=== PATIENT | male | born 1945 | race Caucasian/White ===

== ENCOUNTER 2016-06-24 10:24 | Emergency (ER) | payer MEDICARE ==
[2016-06-24] MEDS ORDERED: ACETAMINOPHEN TAB 650MG DOSE (2X325MG) As Ordered ONE (11:12)
[2016-06-24 11:18] LABS: BASO # 0.2 K/mm3 (0.0-0.2); EOS % 0.2 % (0.0-3.0); LARGE UNSTAINED CELL # 0.2 K/mm3 (0.0-0.4); LARGE UNSTAINED CELL % 1.3 % (0.0-4.0); LYMPH # 0.7 K/mm3 (1.5-4.5); LYMPH % 4.4 % (24.0-44.0); MEAN CORPUSCULAR HEMOGLOBIN 30.4 pg (27.0-33.0); MEAN CORPUSCULAR VOLUME 92.2 fl (80.0-96.0); MONO # 0.7 K/mm3 (0.0-0.8); NEUTROPHILS # 10.5 K/mm3 (1.8-7.7); PLATELET COUNT, AUTOMATED 189 k/mm3 (150-450); RED CELL DISTRIBUTION WIDTH 14.3 % (11.5-14.5); WHITE BLOOD COUNT 12.2 K/mm3 (4.0-10.0)
[2016-06-24 11:26] LABS: ALBUMIN 3.6 GM/DL (3.2-5.2); ALBUMIN/GLOBULIN RATIO 0.86 (1.00-1.93); ALKALINE PHOSPHATASE 85 U/L (45-117); ALT/SGPT 23 U/L (12-78); ANION GAP 8 MEQ/L (8-16); AST/SGOT 16 U/L (15-37); BILIRUBIN,DIRECT 0.1 MG/DL (0.0-0.2); BILIRUBIN,TOTAL 0.5 MG/DL (0.2-1.0); BLOOD UREA NITROGEN 16 MG/DL (7-18); CALCIUM LEVEL 8.4 MG/DL (8.8-10.2); CARBON DIOXIDE LEVEL 26 MEQ/L (21-32); CHLORIDE LEVEL 104 MEQ/L (98-107); CREATININE FOR GFR 1.24 MG/DL (0.70-1.30); GLOMERULAR FILTRATION RATE > 60.0 (>42); GLUCOSE, FASTING 119 MG/DL (83-110); SODIUM LEVEL 138 MEQ/L (136-145); TOTAL PROTEIN 7.8 GM/DL (6.4-8.2)
[2016-06-24 12:18] LABS: CALCIUM OXALATE CRYSTALS SMALL
--- NOTE | 2016-06-24 12:28 | REP ---
CHEST X-RAY: Two views. HISTORY: Fever and cough. FINDINGS: The lungs are symmetrically aerated and free of infiltrate. Pleural angles are sharp. Heart is not enlarged. The aorta is rather tortuous. There are degenerative changes in the thoracic spine. Pulmonary vasculature is not increased. IMPRESSION: No active disease. Signed by Willian Linares MD 06/24/2016 12:34 P
[2016-06-24] MEDS ORDERED: MORPHINE 4 MG/ML 1ML SYRINGE As Ordered ONE (13:37)
[2016-06-24] MEDS ORDERED: OSELTAMIVIR PHOSPHATE 75 MG CAP (TAMIFLU) As Ordered ONE (14:09)
--- NOTE | 2016-06-24 14:21 | EDDOCDS ---
Physician Documentation [facility] Name: Angel Jay Age: 71 yrs Sex: Male : 1945 Arrival Date: 06/24/2016 Time: 10:24 Bed 11 Private MD: Sarai Hernández N. Disposition: 06/24 13:33 I have independently interviewed and examined the patient, and I agree with the br1 investigation, diagnosis and treatment plan as documented by the Resident. Disposition: 06/24/16 13:24 Discharged to Home/Self Care. Impression: Influenza due to identified novel influenza A virus, Hematuria. - Condition is Stable. - Discharge Instructions: Influenza, Adult, [id number]. - Prescriptions for Tamiflu 75 mg Oral Capsule - take 1 capsule by ORAL route every 12 hours for 5 days; 10 capsule. - Medication Reconciliation, Local Pharmacy Hours form. - Follow up: Sarai Hernández; When: Call to arrange an appointment; Reason: Recheck today's complaints. - Problem is new. - Symptoms have improved. - Notes: You were evaluated in the emergency department for flu-like symptoms. You tested positive for influenza A. You were given Tamiflu while in the ED. Please continue with this prescription for the next five days. Schedule an appointment with your primary care provider at your soonest convenience to discuss today's complaints. Historical: - Allergies: no known allergies; - Home Meds: 1. aspirin 81 mg Oral chew 1 tab once daily 2. amlodipine 5 mg Oral tab 1 tab once daily (Last dose: 06/23/2016) 3. allopurinol 100 mg Oral tab 2 tabs once daily (Last dose: 06/23/2016 08:00) 4. lisinopril 20 mg Oral tab 1 tab bid (Last dose: 06/23/2016 20:00) 5. indomethacin 25 mg Oral cap 1 cap as needed for gout flare up (Last dose: 06/07/2016) - PMHx: Gout; Hypertension; - PSHx: eye surgery - right eye removed; - Social history: Smoking status: Patient states was never smoker of tobacco. No barriers to communication noted, The patient speaks fluent French, Speaks appropriately for age. - Family history: Not pertinent. - : The pt / caregiver states he / she is not on anticoagulants. Home medication list is obtained from the patient, family members, Unable to Verify Home Med List with the patient / caregiver. Note will call pharmacy to verify. - Exposure Risk Screening:: None identified. Vital Signs: 10:26 BP 144 / 96; Pulse 115; Resp 26; Temp 103.7(O); Pulse Ox 96% on R/A; Weight 95.25 kg / elp 209.99 lbs (R); Height 5 ft. 8 in. (172.72 cm) (R); 11:50 BP 132 / 84 (auto/); ja5 11:50 Pulse 114 MON; Pulse Ox 95% ; ja5 11:58 Pulse 98 MON; Pulse Ox 94% ; ja5 12:03 BP 164 / 83; ja5 12:05 BP 131 / 71 (auto/); ja5 12:19 Pulse 96 MON; Pulse Ox 94% ; ja5 12:20 BP 134 / 77 (auto/); ja5 12:34 Pulse 100 MON; Pulse Ox 95% ; ja5 12:35 BP 127 / 77 (auto/); ja5 12:49 Pulse 96 MON; ja5 12:50 BP 120 / 80 (auto/); ja5 12:57 Temp 100.1(O); ja5 13:19 Pulse 80 MON; ja5 13:20 BP 118 / 78 (auto/); ja5 13:34 Pulse 80 MON; ja5 13:35 BP 123 / 77 (auto/); ja5 13:49 Pulse 80 MON; ja5 13:50 BP 126 / 83 (auto/); ja5 14:04 Pulse 80 MON; ja5 14:05 BP 129 / 87 (auto/); ja5 14:09 BP 135 / 84; Pulse 83; Resp 16; Temp 99(O); Pulse Ox 96% ; Pain 0/10; ja5 10:26 Body Mass Index 31.93 (95.25 kg, 172.72 cm) elp MDM: 10:57 Acetaminophen Tablet 650 mg PO once ordered. br1 10:58 -Blood Culture (Adults Only), peripheral from different site, or from device/port/PICC br1 etc. if present ordered. 10:58 Ballet Master/Mistress/Pulse Ox/q 15 min VS ordered. br1 10:59 CBC with Diff Ordered. EDMS 10:59 Lactic Acid (Pruitt tube on ice) Ordered. EDMS 10:59 Liver Profile Ordered. EDMS 10:59 MED Profile Ordered. EDMS 10:59 Urinalysis Ordered. EDMS 10:59 -Blood Culture Ordered. EDMS 10:59 Urine Culture Ordered. EDMS 10:59 Chest, 2 View (pa\E\lat) Ordered. EDMS 10:59 -Influenza A&B Rapid Antigen - Nose Ordered. EDMS 11:09 -Blood Culture (Adults Only), peripheral from different site, or from device/port/PICC lbd etc. if present complete. 11:13 BLOOD CULTURES Ordered. EDMS 11:24 CBC with Diff Reviewed. jo4 11:52 -Influenza A&B Rapid Antigen - Nose Reviewed. jo4 11:54 Lactic Acid (Pruitt tube on ice) Reviewed. jo4 11:54 Liver Profile Reviewed. jo4 11:54 MED Profile Reviewed. jo4 11:55 Oseltamivir 75 mg PO once ordered. jo4 12:07 Financial registration complete. lg 12:20 [facility] Payment Agreement was scanned into [employer] and attached to record. lg 12:46 Urinalysis Reviewed. br1 12:46 Chest, 2 View (pa\E\lat) Reviewed. br1 12:47 Oseltamivir 75 mg PO once ordered. br1 13:33 ED course: Seen with resident agree with findings. 2 days of body aches, fever. br1 Positive for flu. Temp improved. Otherwise workup unrevealing. Patient feeling better and wishes DC home. Plan Tamiflu, DC home, follow up with PCP. Patient agrees with plan.. Administered Medications: 11:21 Drug: Acetaminophen 650 mg [acetaminophen 325 mg tablet (2 tabs)] Route: PO; ja5 12:02 Not Given (Outside therapeutic window): Oseltamivir 75 mg PO once jo4 14:11 Drug: Oseltamivir 75 mg [oseltamivir 75 mg capsule (1 caps)] Route: PO; ja5 Signatures: Dispatcher [employer] EDMS Magalis Pond, Senior Administrative Assistant Unit lbd Edd Maurice, Darío Reg lg Ronny Schumacher MD MD br1 Aparna Pratt RN RN hs1 Rehana Telles DO DO jo4 Sylvia Henderson RN RN ja5 The chart was reviewed and I authenticate all verbal orders and agree with the evaluation and treatment provided.Corrections: (The following items were deleted from the chart) 11: 10:34 Home Meds: allopurinol Oral; hs1 jc4 11:24 10:34 Home Meds: lisinopril Oral; hs1 jc4 Attachments: 12:20 [facility] Payment Agreement lg MTDD
--- NOTE | 2016-06-24 14:21 | EDDOCDS ---
Nurse's Notes [facility] Name: Angel Jay Age: 71 yrs Sex: Male : 1945 Arrival Date: 06/24/2016 Time: 10:24 Bed 11 Private MD: Sarai Hernández N. Diagnosis: Influenza due to identified novel influenza A virus;Hematuria Presentation: 06/24 10:29 Presenting complaint: Patient states: cough cold flu symptoms for past couple of days. hs1 Fever and Chills, Nauseated. Adult Sepsis Screening: The patient does not have new or worsening altered mentation. Patient has a respiratory rate of greater than or equal to 22 (1 point). Systolic blood pressure is greater than 100. Patient has a qSOFA score of 1- Negative Sepsis Screen. Suicide/Homicide risk assessment- the patient denies having any suicidal and/or homicidal ideations and does not present with any other emotional, behavioral or mental health complaints. Status: Patient is not a electromedical service engineer or dependent. Transition of care: patient was not received from another setting of care. 10:29 Method Of Arrival: Walkin/Carried/Asstd hs1 10:29 Acuity: ROXANNE Level 2 hs1 Triage Assessment: 10:34 General: Appears uncomfortable, Behavior is anxious, appropriate for age, cooperative. hs1 Pain: Location: all over. Neurological: Level of Consciousness is awake, alert, obeys commands, Oriented to person, place, time. Respiratory: Airway is patent Respiratory effort is even, unlabored, Respiratory pattern is regular, symmetrical. Derm: Skin is pink, warm & dry. normal. Historical: - Allergies: no known allergies; - Home Meds: 1. aspirin 81 mg Oral chew 1 tab once daily 2. amlodipine 5 mg Oral tab 1 tab once daily (Last dose: 06/23/2016) 3. allopurinol 100 mg Oral tab 2 tabs once daily (Last dose: 06/23/2016 08:00) 4. lisinopril 20 mg Oral tab 1 tab bid (Last dose: 06/23/2016 20:00) 5. indomethacin 25 mg Oral cap 1 cap as needed for gout flare up (Last dose: 06/07/2016) - PMHx: Gout; Hypertension; - PSHx: eye surgery - right eye removed; - Social history: Smoking status: Patient states was never smoker of tobacco. No barriers to communication noted, The patient speaks fluent Anguillan, Speaks appropriately for age. - Family history: Not pertinent. - : The pt / caregiver states he / she is not on anticoagulants. Home medication list is obtained from the patient, family members, Unable to Verify Home Med List with the patient / caregiver. Note will call pharmacy to verify. - Exposure Risk Screening:: None identified. Screenin:03 Screening information is obtained from the patient. Fall risk: No risks identified. ja5 Assistance ADL's: requires no assistance with activities of daily living. Abuse/DV Screen: The patient / caregiver reports he/she is: not in a situation that causes fear, pain or injury. Nutritional screening: On no prescribed diet. Advance Directives: Currently, there is a health care proxy, Sayra Jay, . There is no active DNR order. There is no living will. There is an active Power of Paper Goods Machine Operator, Sayra Jay, . home support is adequate. Assessment: 11:01 General: Appears uncomfortable, Behavior is cooperative. Pain: Denies pain. ja5 Neurological: Level of Consciousness is awake, alert, Oriented to person, place, time. Cardiovascular: Heart tones S1 S2 present. Respiratory: Airway is patent Respiratory effort is even, unlabored, Respiratory pattern is regular, symmetrical, tachypnea. Derm: Skin is intact, Skin is Skin is pink, warm & dry. 11:06 Respiratory: Breath sounds are clear. ja5 14:11 General: Appears in no apparent distress, Behavior is appropriate for age, cooperative. ja5 Pain: Denies pain. Neurological: Level of Consciousness is awake, alert, Oriented to person, place, time. Cardiovascular: Capillary refill < 3 seconds. Respiratory: Airway is patent Respiratory effort is even, unlabored, Respiratory pattern is regular, symmetrical. Derm: Skin is intact, Skin is pink, warm & dry. Vital Signs: 10:26 BP 144 / 96; Pulse 115; Resp 26; Temp 103.7(O); Pulse Ox 96% on R/A; Weight 95.25 kg elp (R); Height 5 ft. 8 in. (172.72 cm) (R); 11:50 BP 132 / 84 (auto/); ja5 11:50 Pulse 114 MON; Pulse Ox 95% ; ja5 11:58 Pulse 98 MON; Pulse Ox 94% ; ja5 12:03 BP 164 / 83; ja5 12:05 BP 131 / 71 (auto/); ja5 12:19 Pulse 96 MON; Pulse Ox 94% ; ja5 12:20 BP 134 / 77 (auto/); ja5 12:34 Pulse 100 MON; Pulse Ox 95% ; ja5 12:35 BP 127 / 77 (auto/); ja5 12:49 Pulse 96 MON; ja5 12:50 BP 120 / 80 (auto/); ja5 12:57 Temp 100.1(O); ja5 13:19 Pulse 80 MON; ja5 13:20 BP 118 / 78 (auto/); ja5 13:34 Pulse 80 MON; ja5 13:35 BP 123 / 77 (auto/); ja5 13:49 Pulse 80 MON; ja5 13:50 BP 126 / 83 (auto/); ja5 14:04 Pulse 80 MON; ja5 14:05 BP 129 / 87 (auto/); ja5 14:09 BP 135 / 84; Pulse 83; Resp 16; Temp 99(O); Pulse Ox 96% ; Pain 0/10; ja5 10:26 Body Mass Index 31.93 (95.25 kg, 172.72 cm) [facility] Vitals: 10:26 Log In Time: June 24, 2016 at 10:24. elp 10:29 RN notified that patient meets Red Flag criteria. [facility] ED Course: 10:26 Patient visited by Cara Lyons PCA. elp 10:26 Sarai Hernández is Private Physician. elp 10:26 Patient moved to Waiting elp 10:29 Patient visited by Cara Lyons PCA. elp 10:29 Rachelle Aguilar, RN is Primary Nurse. elp 10:29 Patient moved to 11 elp 10:30 Triage Initiated hs1 10:30 The patient / caregiver is instructed regarding the plan of care and ED course. ja5 10:42 [facility]elles DO [facility]. jo4 10:42 Ronny Schumacher MD is Attending Physician. jo4 11:03 Patient visited by Rehana Telles DO. jo4 11:03 Patient visited by Rehana Telles DO. jo4 11:05 Inserted saline lock: 20 gauge in left antecubital area. ja5 11:08 Patient visited by Sylvia Henderson,MONICA. ja5 11:08 -Blood Culture Sent. ja5 11:08 CBC with Diff Sent. ja5 11:08 Lactic Acid (Pruitt tube on ice) Sent. ja5 11:09 Patient visited by Sharmaine Escoto. lr2 11:09 child monitor on. Pulse ox on. NIBP on. lr2 11:09 Liver Profile Sent. ja5 11:09 MED Profile Sent. ja5 11:22 -Influenza A&B Rapid Antigen - Nose Sent. ja5 11:40 Patient visited by Slyvia Henderson,MONICA. ja5 12:03 No procedures done that require assistance. ja5 12:07 Urinalysis Sent. jc4 12:07 Urine Culture Sent. jc4 12:20 [facility] Payment Agreement was scanned into [employer] and attached to record. lg 12:36 Chest, 2 View (pa\E\lat) Returned. EDMS 12:39 Patient visited by Ronny Schumacher MD. br1 12:48 Patient visited by Ronny Schumacher MD. br1 12:57 Patient visited by Sylvia Henderson,MONICA. ja5 13:19 Sarai Hernández is Referral Physician. jo4 13:28 Chest, 2 View (pa\E\lat) Returned. EDMS 14:20 Discontinued lock intact, bleeding controlled, pressure dressing applied, No ja5 redness/swelling at site. Administered Medications: 11:21 Drug: Acetaminophen 650 mg [acetaminophen 325 mg tablet (2 tabs)] Route: PO; ja5 12:02 Not Given (Outside therapeutic window): Oseltamivir 75 mg PO once jo4 14:11 Drug: Oseltamivir 75 mg [oseltamivir 75 mg capsule (1 caps)] Route: PO; ja5 Order Results: Lab Order: CBC with Diff; SPEC'M 06/24/16 10:52 Test: WHITE BLOOD COUNT; Value: 12.2; Range: 4.0-10.0; Abnormal: Above high normal; Units: K/mm3; Status: F Test: RED BLOOD COUNT; Value: 4.67; Range: 4.30-6.10; Units: M/mm3; Status: F Test: HEMOGLOBIN; Value: 14.2; Range: 14.0-18.0; Units: g/dl; Status: F Test: HEMATOCRIT; Value: 43.0; Range: 42.0-52.0; Units: %; Status: F Test: MEAN CORPUSCULAR VOLUME; Value: 92.2; Range: 80.0-96.0; Units: fl; Status: F Test: MEAN CORPUSCULAR HEMOGLOBIN; Value: 30.4; Range: 27.0-33.0; Units: pg; Status: F Test: MEAN CORPUSCULAR HGB CONC; Value: 33.0; Range: 32.0-36.5; Units: g/dl; Status: F Test: RED CELL DISTRIBUTION WIDTH; Value: 14.3; Range: 11.5-14.5; Units: %; Status: F Test: PLATELET COUNT, AUTOMATED; Value: 189; Range: 150-450; Units: k/mm3; Status: F Test: NEUTROPHILS %; Value: 86.0; Range: 36.0-66.0; Abnormal: Above high normal; Units: %; Status: F Test: LYMPH %; Value: 4.4; Range: 24.0-44.0; Abnormal: Below low normal; Units: %; Status: F Test: MONO %; Value: 6.0; Range: 0.0-5.0; Abnormal: Above high normal; Units: %; Status: F Test: EOS %; Value: 0.2; Range: 0.0-3.0; Units: %; Status: F Test: BASO %; Value: 2.0; Range: 0.0-1.0; Abnormal: Above high normal; Units: %; Status: F Test: LARGE UNSTAINED CELL %; Value: 1.3; Range: 0.0-4.0; Units: %; Status: F Test: NEUTROPHILS #; Value: 10.5; Range: 1.8-7.7; Abnormal: Above high normal; Units: K/mm3; Status: F Test: LYMPH #; Value: 0.7; Range: 1.5-4.5; Abnormal: Below low normal; Units: K/mm3; Status: F Test: MONO #; Value: 0.7; Range: 0.0-0.8; Units: K/mm3; Status: F Test: EOS #; Value: 0.0; Range: 0.0-0.50; Units: K/mm3; Status: F Test: BASO #; Value: 0.2; Range: 0.0-0.2; Units: K/mm3; Status: F Test: LARGE UNSTAINED CELL #; Value: 0.2; Range: 0.0-0.4; Units: K/mm3; Status: F Lab Order: Lactic Acid (Pruitt tube on ice); SPEC06/24/16 10:52 Test: LACTIC ACID LEVEL, LACTATE; Value: 1.5; Range: 0.4-2.0; Units: MMOL/L; Status: F Lab Order: Liver Profile; SPEC06/24/16 10:52 Test: AST/SGOT; Value: 16; Range: 15-37; Units: U/L; Status: F Test: ALT/SGPT; Value: 23; Range: 12-78; Units: U/L; Status: F Test: ALKALINE PHOSPHATASE; Value: 85; Range: 45-117; Units: U/L; Status: F Test: BILIRUBIN,TOTAL; Value: 0.5; Range: 0.2-1.0; Units: MG/DL; Status: F Test: BILIRUBIN,DIRECT; Value: 0.1; Range: 0.0-0.2; Units: MG/DL; Status: F Test: TOTAL PROTEIN; Value: 7.8; Range: 6.4-8.2; Units: GM/DL; Status: F Test: ALBUMIN; Value: 3.6; Range: 3.2-5.2; Units: GM/DL; Status: F Test: ALBUMIN/GLOBULIN RATIO; Value: 0.86; Range: 1.00-1.93; Abnormal: Below low normal; Status: F Lab Order: MED Profile; SPEC06/24/16 10:52 Test: GLUCOSE, FASTING; Value: 119; Range: 83-110; Abnormal: Above high normal; Units: MG/DL; Status: F Test: BLOOD UREA NITROGEN; Value: 16; Range: 7-18; Units: MG/DL; Status: F Test: CREATININE FOR GFR; Value: 1.24; Range: 0.70-1.30; Units: MG/DL; Status: F Test: GLOMERULAR FILTRATION RATE; Value: > 60.0; Range: >42; Status: F Test: SODIUM LEVEL; Value: 138; Range: 136-145; Units: MEQ/L; Status: F Test: POTASSIUM SERUM; Value: 4.0; Range: 3.5-5.1; Units: MEQ/L; Status: F Test: CHLORIDE LEVEL; Value: 104; Range: 98-107; Units: MEQ/L; Status: F Test: CARBON DIOXIDE LEVEL; Value: 26; Range: 21-32; Units: MEQ/L; Status: F Test: ANION GAP; Value: 8; Range: 8-16; Units: MEQ/L; Status: F Test: CALCIUM LEVEL; Value: 8.4; Range: 8.8-10.2; Abnormal: Below low normal; Units: MG/DL; Status: F Test Note: ; Units are mL/min/1.73 m2 Chronic Kidney Disease Staging per NKF: Stage I & II GFR >=60 Normal to Mildly Decreased Stage III GFR 30-59 Moderately Decreased Stage IV GFR 15-29 Severely Decreased Stage V GFR <15 Very Little GFR Left ESRD GFR <15 on INSPECTOR AND UNLOADER Lab Order: Urinalysis; SPEC'M 06/24/16 12:04 Test: APPEARANCE, URINE; Value: CLEAR; Range: CLEAR; Status: F Test: COLOR, URINE; Value: YELLOW; Range: YELLOW; Status: F Test: PH,URINE; Value: 6.0; Range: 5.0-9.0; Units: UNITS; Status: F Test: SPECIFIC GRAVITY URINE AUTO; Value: 1.017; Range: 1.002-1.035; Status: F Test: PROTEIN, URINE AUTO; Value: 2+; Range: NEGATIVE; Abnormal: Above high normal; Units: mg/dL; Status: F Test: GLUCOSE, URINE (UA) AUTO; Value: NEGATIVE; Range: NEGATIVE; Units: mg/dL; Status: F Test: KETONE, URINE AUTO; Value: NEGATIVE; Range: NEGATIVE; Units: mg/dL; Status: F Test: UROBILINOGEN, URINE AUTO; Value: 0.2; Range: 0.0-2.0; Units: mg/dL; Status: F Test: BILIRUBIN, URINE AUTO; Value: NEGATIVE; Range: NEGATIVE; Status: F Test: NITRITE, URINE AUTO; Value: NEGATIVE; Range: NEGATIVE; Status: F Test: LEUKOCYTE ESTERASE, URINE AUTO; Value: NEGATIVE; Range: NEGATIVE; Status: F Test: BLOOD, URINE BLOOD; Value: 2+; Range: NEGATIVE; Abnormal: Above high normal; Status: F Test: WBC, URINE AUTO; Value: 1; Range: 0-3; Units: /HPF; Status: F Test: RBC, URINE AUTO; Value: 68; Range: 0-3; Abnormal: Above high normal; Units: /HPF; Status: F Test: BACTERIA, URINE AUTO; Value: NEGATIVE; Range: NEGATIVE; Status: F Test: SQUAMOUS EPITHELIAL CELL UR AU; Value: 0; Range: 0-6; Units: /HPF; Status: F Test: MUCUS, URINE; Value: SMALL; Range: NEGATIVE; Status: F Test: HYALINE CAST, URINE AUTO; Value: 0; Range: 0-1; Units: /LPF; Status: F Test: CALCIUM OXALATE CRYSTALS; Value: SMALL; Range: NONE; Status: F Lab Order: -Influenza A&B Rapid Antigen - Nose; SPEC'M 06/24/16 11:21 Test: INFLUENZA A RAPID SCR by ICA; Value: INFLUENZA A RESULTS POSITIVE; Abnormal: Abnormal; Status: F Test: INFLUENZA A RAPID SCR by ICA; Value: Comments:; Status: F Test: INFLUENZA B RAPID SCR by ICA; Value: INFLUENZA B RESULTS NEGATIVE; Status: F Test Note: ; The Influenza test is a direct rapid immunoassay for the qualitative detection of Influenza viral antigen. Cell culture (Viral Culture) testing should be considered to confirm NEGATIVE results and to assist in detecting other viruses that can provide similar clinical symptoms. Please contact the lab within 24 hours ([phone]) if confirmatory testing is desired. Radiology Order: Chest, 2 View (pa\E\lat) Test: Chest, 2 View (pa\E\lat) REASON FOR EXAMINATION: fever;Cough; CHEST X-RAY: Two views.; ; HISTORY: Fever and cough.; ; FINDINGS: The lungs are symmetrically aerated and free of infiltrate. Pleural; angles are sharp. Heart is not enlarged. The aorta is rather tortuous. There; are degenerative changes in the thoracic spine. Pulmonary vasculature is not; increased.; ; IMPRESSION: No active disease.; ; ; Signed by; Willian Linares MD 06/24/2016 12:34 P; Outcome: 13:24 Discharge ordered by Provider. jo4 14:18 Discharge Assessment: Patient awake, alert and oriented x 3. No cognitive and/or ja5 functional deficits noted. Patient verbalized understanding of disposition instructions. Discharge Assessment: Patient awake and alert. patient administered narcotics - no. The following High Risk Discharge criteria are identified: None. Discharged to home ambulatory, with family. Condition: stable. Discharge instructions given to patient, family, Instructed on discharge instructions, follow up and referral plans. medication usage, Demonstrated understanding of instructions, Prescriptions given X 1. No special radiology studies were completed. Property :Personal belongings accompany Pt. 14:20 Patient left the ED. ja5 Signatures: Dispatcher [employer] EDMS Edd Maurice, Reg Reg Ronny Givens MD MD br1 Aparna Pratt, RN RN hs1 Rachelle Aguilar RN RN jc4 Cara Lyons, NETWORK ADMIN NETWORK ADMIN elp Rehana Telles DO DO jo4 Sylvia HendersonRN RN ja5 Sharmaine Escoto lr2 Corrections: (The following items were deleted from the chart) 10:36 10:29 Acuity: ROXANNE Level 3 hs1 hs1 11:24 10:34 Home Meds: allopurinol Oral; hs1 jc4 11:24 10:34 Home Meds: lisinopril Oral; hs1 jc4 MTDD
--- NOTE | 2016-06-26 15:21 | EDDOCDS ---
Physician Documentation [facility] Name: Angel Jay Age: 71 yrs Sex: Male : 1945 Arrival Date: 06/24/2016 Time: 10:24 Bed 11 Private MD: Sarai Hernández N. Disposition: 06/24 13:33 I have independently interviewed and examined the patient, and I agree with the br1 investigation, diagnosis and treatment plan as documented by the Resident. Disposition: 06/24/16 13:24 Discharged to Home/Self Care. Impression: Influenza due to identified novel influenza A virus, Hematuria. - Condition is Stable. - Discharge Instructions: Influenza, Adult, [id number]. - Prescriptions for Tamiflu 75 mg Oral Capsule - take 1 capsule by ORAL route every 12 hours for 5 days; 10 capsule. - Medication Reconciliation, Local Pharmacy Hours form. - Follow up: Sarai Hernández; When: Call to arrange an appointment; Reason: Recheck today's complaints. - Problem is new. - Symptoms have improved. - Notes: You were evaluated in the emergency department for flu-like symptoms. You tested positive for influenza A. You were given Tamiflu while in the ED. Please continue with this prescription for the next five days. Schedule an appointment with your primary care provider at your soonest convenience to discuss today's complaints. Historical: - Allergies: no known allergies; - Home Meds: 1. aspirin 81 mg Oral chew 1 tab once daily 2. amlodipine 5 mg Oral tab 1 tab once daily (Last dose: 06/23/2016) 3. allopurinol 100 mg Oral tab 2 tabs once daily (Last dose: 06/23/2016 08:00) 4. lisinopril 20 mg Oral tab 1 tab bid (Last dose: 06/23/2016 20:00) 5. indomethacin 25 mg Oral cap 1 cap as needed for gout flare up (Last dose: 06/07/2016) - PMHx: Gout; Hypertension; - PSHx: eye surgery - right eye removed; - Social history: Smoking status: Patient states was never smoker of tobacco. No barriers to communication noted, The patient speaks fluent Korean, Speaks appropriately for age. - Family history: Not pertinent. - : The pt / caregiver states he / she is not on anticoagulants. Home medication list is obtained from the patient, family members, Unable to Verify Home Med List with the patient / caregiver. Note will call pharmacy to verify. - Exposure Risk Screening:: None identified. Vital Signs: 10:26 BP 144 / 96; Pulse 115; Resp 26; Temp 103.7(O); Pulse Ox 96% on R/A; Weight 95.25 kg / elp 209.99 lbs (R); Height 5 ft. 8 in. (172.72 cm) (R); 11:50 BP 132 / 84 (auto/); ja5 11:50 Pulse 114 MON; Pulse Ox 95% ; ja5 11:58 Pulse 98 MON; Pulse Ox 94% ; ja5 12:03 BP 164 / 83; ja5 12:05 BP 131 / 71 (auto/); ja5 12:19 Pulse 96 MON; Pulse Ox 94% ; ja5 12:20 BP 134 / 77 (auto/); ja5 12:34 Pulse 100 MON; Pulse Ox 95% ; ja5 12:35 BP 127 / 77 (auto/); ja5 12:49 Pulse 96 MON; ja5 12:50 BP 120 / 80 (auto/); ja5 12:57 Temp 100.1(O); ja5 13:19 Pulse 80 MON; ja5 13:20 BP 118 / 78 (auto/); ja5 13:34 Pulse 80 MON; ja5 13:35 BP 123 / 77 (auto/); ja5 13:49 Pulse 80 MON; ja5 13:50 BP 126 / 83 (auto/); ja5 14:04 Pulse 80 MON; ja5 14:05 BP 129 / 87 (auto/); ja5 14:09 BP 135 / 84; Pulse 83; Resp 16; Temp 99(O); Pulse Ox 96% ; Pain 0/10; ja5 10:26 Body Mass Index 31.93 (95.25 kg, 172.72 cm) elp MDM: 10:57 Acetaminophen Tablet 650 mg PO once ordered. br1 10:58 -Blood Culture (Adults Only), peripheral from different site, or from device/port/PICC br1 etc. if present ordered. 10:58 Pulmonologist/Pulse Ox/q 15 min VS ordered. br1 10:59 CBC with Diff Ordered. EDMS 10:59 Lactic Acid (Pruitt tube on ice) Ordered. EDMS 10:59 Liver Profile Ordered. EDMS 10:59 MED Profile Ordered. EDMS 10:59 Urinalysis Ordered. EDMS 10:59 -Blood Culture Ordered. EDMS 10:59 Urine Culture Ordered. EDMS 10:59 Chest, 2 View (pa\E\lat) Ordered. EDMS 10:59 -Influenza A&B Rapid Antigen - Nose Ordered. EDMS 11:09 -Blood Culture (Adults Only), peripheral from different site, or from device/port/PICC lbd etc. if present complete. 11:13 BLOOD CULTURES Ordered. EDMS 11:24 CBC with Diff Reviewed. jo4 11:52 -Influenza A&B Rapid Antigen - Nose Reviewed. jo4 11:54 Lactic Acid (Pruitt tube on ice) Reviewed. jo4 11:54 Liver Profile Reviewed. jo4 11:54 MED Profile Reviewed. jo4 11:55 Oseltamivir 75 mg PO once ordered. jo4 12:07 Financial registration complete. lg 12:20 [facility] Payment Agreement was scanned into [employer] and attached to record. lg 12:46 Urinalysis Reviewed. br1 12:46 Chest, 2 View (pa\E\lat) Reviewed. br1 12:47 Oseltamivir 75 mg PO once ordered. br1 13:33 ED course: Seen with resident agree with findings. 2 days of body aches, fever. br1 Positive for flu. Temp improved. Otherwise workup unrevealing. Patient feeling better and wishes DC home. Plan Tamiflu, DC home, follow up with PCP. Patient agrees with plan.. 16:06 T-Sheet-- Draft Copy was scanned into [employer] and attached to record. klr Administered Medications: 11:21 Drug: Acetaminophen 650 mg [acetaminophen 325 mg tablet (2 tabs)] Route: PO; ja5 12:02 Not Given (Outside therapeutic window): Oseltamivir 75 mg PO once jo4 14:11 Drug: Oseltamivir 75 mg [oseltamivir 75 mg capsule (1 caps)] Route: PO; ja5 Signatures: Dispatcher [employer] EDMS Magalis Pond, Invoice Checker Unit lbd Edd Maurice, Darío Reg lg Ronny Schumacher MD MD br1 Aparna Pratt RN RN hs1 Rehana Telles DO DO jo4 Luci Hua Jessica,RN RN ja5 The chart was reviewed and I authenticate all verbal orders and agree with the evaluation and treatment provided.Corrections: (The following items were deleted from the chart) 11:24 10:34 Home Meds: allopurinol Oral; hs1 jc4 11:24 10:34 Home Meds: lisinopril Oral; hs1 jc4 Attachments: 12:20 [facility] Payment Agreement lg 16:06 T-Sheet-- Draft Copy estefania Chart Complete MTDD
--- NOTE | 2016-06-26 15:21 | EDDOCDS ---
Physician Documentation [facility] Name: Angel Jay Age: 71 yrs Sex: Male : 1945 Arrival Date: 06/24/2016 Time: 10:24 Bed 11 Private MD: Sarai Hernández N. Disposition: 06/24 13:33 I have independently interviewed and examined the patient, and I agree with the br1 investigation, diagnosis and treatment plan as documented by the Resident. Disposition: 06/24/16 13:24 Discharged to Home/Self Care. Impression: Influenza due to identified novel influenza A virus, Hematuria. - Condition is Stable. - Discharge Instructions: Influenza, Adult, [id number]. - Prescriptions for Tamiflu 75 mg Oral Capsule - take 1 capsule by ORAL route every 12 hours for 5 days; 10 capsule. - Medication Reconciliation, Local Pharmacy Hours form. - Follow up: Sarai Hernández; When: Call to arrange an appointment; Reason: Recheck today's complaints. - Problem is new. - Symptoms have improved. - Notes: You were evaluated in the emergency department for flu-like symptoms. You tested positive for influenza A. You were given Tamiflu while in the ED. Please continue with this prescription for the next five days. Schedule an appointment with your primary care provider at your soonest convenience to discuss today's complaints. Historical: - Allergies: no known allergies; - Home Meds: 1. aspirin 81 mg Oral chew 1 tab once daily 2. amlodipine 5 mg Oral tab 1 tab once daily (Last dose: 06/23/2016) 3. allopurinol 100 mg Oral tab 2 tabs once daily (Last dose: 06/23/2016 08:00) 4. lisinopril 20 mg Oral tab 1 tab bid (Last dose: 06/23/2016 20:00) 5. indomethacin 25 mg Oral cap 1 cap as needed for gout flare up (Last dose: 06/07/2016) - PMHx: Gout; Hypertension; - PSHx: eye surgery - right eye removed; - Social history: Smoking status: Patient states was never smoker of tobacco. No barriers to communication noted, The patient speaks fluent Persian, Speaks appropriately for age. - Family history: Not pertinent. - : The pt / caregiver states he / she is not on anticoagulants. Home medication list is obtained from the patient, family members, Unable to Verify Home Med List with the patient / caregiver. Note will call pharmacy to verify. - Exposure Risk Screening:: None identified. Vital Signs: 10:26 BP 144 / 96; Pulse 115; Resp 26; Temp 103.7(O); Pulse Ox 96% on R/A; Weight 95.25 kg / elp 209.99 lbs (R); Height 5 ft. 8 in. (172.72 cm) (R); 11:50 BP 132 / 84 (auto/); ja5 11:50 Pulse 114 MON; Pulse Ox 95% ; ja5 11:58 Pulse 98 MON; Pulse Ox 94% ; ja5 12:03 BP 164 / 83; ja5 12:05 BP 131 / 71 (auto/); ja5 12:19 Pulse 96 MON; Pulse Ox 94% ; ja5 12:20 BP 134 / 77 (auto/); ja5 12:34 Pulse 100 MON; Pulse Ox 95% ; ja5 12:35 BP 127 / 77 (auto/); ja5 12:49 Pulse 96 MON; ja5 12:50 BP 120 / 80 (auto/); ja5 12:57 Temp 100.1(O); ja5 13:19 Pulse 80 MON; ja5 13:20 BP 118 / 78 (auto/); ja5 13:34 Pulse 80 MON; ja5 13:35 BP 123 / 77 (auto/); ja5 13:49 Pulse 80 MON; ja5 13:50 BP 126 / 83 (auto/); ja5 14:04 Pulse 80 MON; ja5 14:05 BP 129 / 87 (auto/); ja5 14:09 BP 135 / 84; Pulse 83; Resp 16; Temp 99(O); Pulse Ox 96% ; Pain 0/10; ja5 10:26 Body Mass Index 31.93 (95.25 kg, 172.72 cm) elp MDM: 10:57 Acetaminophen Tablet 650 mg PO once ordered. br1 10:58 -Blood Culture (Adults Only), peripheral from different site, or from device/port/PICC br1 etc. if present ordered. 10:58 Change Control Analyst/Pulse Ox/q 15 min VS ordered. br1 10:59 CBC with Diff Ordered. EDMS 10:59 Lactic Acid (Pruitt tube on ice) Ordered. EDMS 10:59 Liver Profile Ordered. EDMS 10:59 MED Profile Ordered. EDMS 10:59 Urinalysis Ordered. EDMS 10:59 -Blood Culture Ordered. EDMS 10:59 Urine Culture Ordered. EDMS 10:59 Chest, 2 View (pa\E\lat) Ordered. EDMS 10:59 -Influenza A&B Rapid Antigen - Nose Ordered. EDMS 11:09 -Blood Culture (Adults Only), peripheral from different site, or from device/port/PICC lbd etc. if present complete. 11:13 BLOOD CULTURES Ordered. EDMS 11:24 CBC with Diff Reviewed. jo4 11:52 -Influenza A&B Rapid Antigen - Nose Reviewed. jo4 11:54 Lactic Acid (Pruitt tube on ice) Reviewed. jo4 11:54 Liver Profile Reviewed. jo4 11:54 MED Profile Reviewed. jo4 11:55 Oseltamivir 75 mg PO once ordered. jo4 12:07 Financial registration complete. lg 12:20 [facility] Payment Agreement was scanned into [employer] and attached to record. lg 12:46 Urinalysis Reviewed. br1 12:46 Chest, 2 View (pa\E\lat) Reviewed. br1 12:47 Oseltamivir 75 mg PO once ordered. br1 13:33 ED course: Seen with resident agree with findings. 2 days of body aches, fever. br1 Positive for flu. Temp improved. Otherwise workup unrevealing. Patient feeling better and wishes DC home. Plan Tamiflu, DC home, follow up with PCP. Patient agrees with plan.. 16:06 T-Sheet-- Draft Copy was scanned into [employer] and attached to record. klr Administered Medications: 11:21 Drug: Acetaminophen 650 mg [acetaminophen 325 mg tablet (2 tabs)] Route: PO; ja5 12:02 Not Given (Outside therapeutic window): Oseltamivir 75 mg PO once jo4 14:11 Drug: Oseltamivir 75 mg [oseltamivir 75 mg capsule (1 caps)] Route: PO; ja5 Signatures: Dispatcher [employer] EDMS Magalis Pond, Spiral Winding Machine Helper Unit lbd Edd Maurice, Darío Reg lg Ronny Schumacher MD MD br1 Aparna Pratt RN RN hs1 Rehana Telles DO DO jo4 Luci Hua Jessica,RN RN ja5 The chart was reviewed and I authenticate all verbal orders and agree with the evaluation and treatment provided.Corrections: (The following items were deleted from the chart) 11:24 10:34 Home Meds: allopurinol Oral; hs1 jc4 11:24 10:34 Home Meds: lisinopril Oral; hs1 jc4 Attachments: 12:20 [facility] Payment Agreement lg 16:06 T-Sheet-- Draft Copy estefania Chart Complete MTDD
--- NOTE | 2016-06-26 15:21 | EDDOCDS ---
Nurse's Notes [facility] Name: Angel Jay Age: 71 yrs Sex: Male : 1945 Arrival Date: 06/24/2016 Time: 10:24 Bed 11 Private MD: Sarai Hernández N. Diagnosis: Influenza due to identified novel influenza A virus;Hematuria Presentation: 06/24 10:29 Presenting complaint: Patient states: cough cold flu symptoms for past couple of days. hs1 Fever and Chills, Nauseated. Adult Sepsis Screening: The patient does not have new or worsening altered mentation. Patient has a respiratory rate of greater than or equal to 22 (1 point). Systolic blood pressure is greater than 100. Patient has a qSOFA score of 1- Negative Sepsis Screen. Suicide/Homicide risk assessment- the patient denies having any suicidal and/or homicidal ideations and does not present with any other emotional, behavioral or mental health complaints. Status: Patient is not a care services manager or dependent. Transition of care: patient was not received from another setting of care. 10:29 Method Of Arrival: Walkin/Carried/Asstd hs1 10:29 Acuity: ROXANNE Level 2 hs1 Triage Assessment: 10:34 General: Appears uncomfortable, Behavior is anxious, appropriate for age, cooperative. hs1 Pain: Location: all over. Neurological: Level of Consciousness is awake, alert, obeys commands, Oriented to person, place, time. Respiratory: Airway is patent Respiratory effort is even, unlabored, Respiratory pattern is regular, symmetrical. Derm: Skin is pink, warm & dry. normal. Historical: - Allergies: no known allergies; - Home Meds: 1. aspirin 81 mg Oral chew 1 tab once daily 2. amlodipine 5 mg Oral tab 1 tab once daily (Last dose: 06/23/2016) 3. allopurinol 100 mg Oral tab 2 tabs once daily (Last dose: 06/23/2016 08:00) 4. lisinopril 20 mg Oral tab 1 tab bid (Last dose: 06/23/2016 20:00) 5. indomethacin 25 mg Oral cap 1 cap as needed for gout flare up (Last dose: 06/07/2016) - PMHx: Gout; Hypertension; - PSHx: eye surgery - right eye removed; - Social history: Smoking status: Patient states was never smoker of tobacco. No barriers to communication noted, The patient speaks fluent Congolese, Speaks appropriately for age. - Family history: Not pertinent. - : The pt / caregiver states he / she is not on anticoagulants. Home medication list is obtained from the patient, family members, Unable to Verify Home Med List with the patient / caregiver. Note will call pharmacy to verify. - Exposure Risk Screening:: None identified. Screenin:03 Screening information is obtained from the patient. Fall risk: No risks identified. ja5 Assistance ADL's: requires no assistance with activities of daily living. Abuse/DV Screen: The patient / caregiver reports he/she is: not in a situation that causes fear, pain or injury. Nutritional screening: On no prescribed diet. Advance Directives: Currently, there is a health care proxy, Sayra Jay, . There is no active DNR order. There is no living will. There is an active Power of Licensed Club Manager, Sayra Jay, . home support is adequate. Assessment: 11:01 General: Appears uncomfortable, Behavior is cooperative. Pain: Denies pain. ja5 Neurological: Level of Consciousness is awake, alert, Oriented to person, place, time. Cardiovascular: Heart tones S1 S2 present. Respiratory: Airway is patent Respiratory effort is even, unlabored, Respiratory pattern is regular, symmetrical, tachypnea. Derm: Skin is intact, Skin is Skin is pink, warm & dry. 11:06 Respiratory: Breath sounds are clear. ja5 13:05 General: Appears in no apparent distress, Behavior is cooperative. Neurological: Level jc4 of Consciousness is awake, alert, Oriented to person, place, time. Respiratory: Airway is patent Respiratory effort is even, unlabored, Respiratory pattern is regular, symmetrical. Derm: Skin is pink, warm & dry. 14:11 General: Appears in no apparent distress, Behavior is appropriate for age, cooperative. ja5 Pain: Denies pain. Neurological: Level of Consciousness is awake, alert, Oriented to person, place, time. Cardiovascular: Capillary refill < 3 seconds. Respiratory: Airway is patent Respiratory effort is even, unlabored, Respiratory pattern is regular, symmetrical. Derm: Skin is intact, Skin is pink, warm & dry. Vital Signs: 10:26 BP 144 / 96; Pulse 115; Resp 26; Temp 103.7(O); Pulse Ox 96% on R/A; Weight 95.25 kg elp (R); Height 5 ft. 8 in. (172.72 cm) (R); 11:50 BP 132 / 84 (auto/); ja5 11:50 Pulse 114 MON; Pulse Ox 95% ; ja5 11:58 Pulse 98 MON; Pulse Ox 94% ; ja5 12:03 BP 164 / 83; ja5 12:05 BP 131 / 71 (auto/); ja5 12:19 Pulse 96 MON; Pulse Ox 94% ; ja5 12:20 BP 134 / 77 (auto/); ja5 12:34 Pulse 100 MON; Pulse Ox 95% ; ja5 12:35 BP 127 / 77 (auto/); ja5 12:49 Pulse 96 MON; ja5 12:50 BP 120 / 80 (auto/); ja5 12:57 Temp 100.1(O); ja5 13:19 Pulse 80 MON; ja5 13:20 BP 118 / 78 (auto/); ja5 13:34 Pulse 80 MON; ja5 13:35 BP 123 / 77 (auto/); ja5 13:49 Pulse 80 MON; ja5 13:50 BP 126 / 83 (auto/); ja5 14:04 Pulse 80 MON; ja5 14:05 BP 129 / 87 (auto/); ja5 14:09 BP 135 / 84; Pulse 83; Resp 16; Temp 99(O); Pulse Ox 96% ; Pain 0/10; ja5 10:26 Body Mass Index 31.93 (95.25 kg, 172.72 cm) el Vitals: 10:26 Log In Time: June 24, 2016 at 10:24. elp 10:29 RN notified that patient meets Red Flag criteria. elp ED Course: 10:26 Patient visited by Cara Lyons PCA. elp 10:26 Sarai Hernández is Private Physician. elp 10:26 Patient moved to Waiting elp 10:29 Patient visited by Cara Lyons PCA. elp 10:29 Rachelle Aguilar, MONICA is Primary Nurse. elp 10:29 Patient moved to 11 elp 10:30 Triage Initiated hs1 10:30 The patient / caregiver is instructed regarding the plan of care and ED course. ja5 10:42 Rehana Telles DO is PHCP. jo4 10:42 Ronny Schumacher MD is Attending Physician. jo4 11:03 Patient visited by Rehana Telles DO. jo4 11:03 Patient visited by Rehana Telles DO. jo4 11:05 Inserted saline lock: 20 gauge in left antecubital area. ja5 11:08 Patient visited by Sylvia Henderson,MONICA. ja5 11:08 -Blood Culture Sent. ja5 11:08 CBC with Diff Sent. ja5 11:08 Lactic Acid (Pruitt tube on ice) Sent. ja5 11:09 Patient visited by Sharmaine Escoto. lr2 11:09 technical operations manager on. Pulse ox on. NIBP on. lr2 11:09 Liver Profile Sent. ja5 11:09 MED Profile Sent. ja5 11:22 -Influenza A&B Rapid Antigen - Nose Sent. ja5 11:40 Patient visited by Sylvia Henderson,MONICA. ja5 12:03 No procedures done that require assistance. ja5 12:07 Urinalysis Sent. jc4 12:07 Urine Culture Sent. jc4 12:20 [facility] Payment Agreement was scanned into [employer] and attached to record. lg 12:36 Chest, 2 View (pa\E\lat) Returned. EDMS 12:39 Patient visited by Ronny Schumacher MD. br1 12:48 Patient visited by Ronny Schumacher MD. br1 12:57 Patient visited by Sylvia Henderson RN. ja5 13:19 Sarai Hernández is Referral Physician. jo4 13:28 Chest, 2 View (pa\E\lat) Returned. EDMS 14:20 Discontinued lock intact, bleeding controlled, pressure dressing applied, No ja5 redness/swelling at site. 16:06 T-Sheet-- Draft Copy was scanned into [employer] and attached to record. klr Administered Medications: 11:21 Drug: Acetaminophen 650 mg [acetaminophen 325 mg tablet (2 tabs)] Route: PO; ja5 12:02 Not Given (Outside therapeutic window): Oseltamivir 75 mg PO once jo4 14:11 Drug: Oseltamivir 75 mg [oseltamivir 75 mg capsule (1 caps)] Route: PO; ja5 Order Results: Lab Order: -Blood Culture; SPEC'M 06/24/16 10:52 Test: BLOOD CULTURE; Value: No growth after 24 hours . All specimens observed; Status: F Test: BLOOD CULTURE; Value: for 5 days. Results final at that time.; Status: F Test: BLOOD CULTURE; Value: No Growth after 48 hours. All Specimens observed; Status: F Test: BLOOD CULTURE; Value: for 7 days. Results final at that time.; Status: F Lab Order: CBC with Diff; SPEC'M 06/24/16 10:52 Test: WHITE BLOOD COUNT; Value: 12.2; Range: 4.0-10.0; Abnormal: Above high normal; Units: K/mm3; Status: F Test: RED BLOOD COUNT; Value: 4.67; Range: 4.30-6.10; Units: M/mm3; Status: F Test: HEMOGLOBIN; Value: 14.2; Range: 14.0-18.0; Units: g/dl; Status: F Test: HEMATOCRIT; Value: 43.0; Range: 42.0-52.0; Units: %; Status: F Test: MEAN CORPUSCULAR VOLUME; Value: 92.2; Range: 80.0-96.0; Units: fl; Status: F Test: MEAN CORPUSCULAR HEMOGLOBIN; Value: 30.4; Range: 27.0-33.0; Units: pg; Status: F Test: MEAN CORPUSCULAR HGB CONC; Value: 33.0; Range: 32.0-36.5; Units: g/dl; Status: F Test: RED CELL DISTRIBUTION WIDTH; Value: 14.3; Range: 11.5-14.5; Units: %; Status: F Test: PLATELET COUNT, AUTOMATED; Value: 189; Range: 150-450; Units: k/mm3; Status: F Test: NEUTROPHILS %; Value: 86.0; Range: 36.0-66.0; Abnormal: Above high normal; Units: %; Status: F Test: LYMPH %; Value: 4.4; Range: 24.0-44.0; Abnormal: Below low normal; Units: %; Status: F Test: MONO %; Value: 6.0; Range: 0.0-5.0; Abnormal: Above high normal; Units: %; Status: F Test: EOS %; Value: 0.2; Range: 0.0-3.0; Units: %; Status: F Test: BASO %; Value: 2.0; Range: 0.0-1.0; Abnormal: Above high normal; Units: %; Status: F Test: LARGE UNSTAINED CELL %; Value: 1.3; Range: 0.0-4.0; Units: %; Status: F Test: NEUTROPHILS #; Value: 10.5; Range: 1.8-7.7; Abnormal: Above high normal; Units: K/mm3; Status: F Test: LYMPH #; Value: 0.7; Range: 1.5-4.5; Abnormal: Below low normal; Units: K/mm3; Status: F Test: MONO #; Value: 0.7; Range: 0.0-0.8; Units: K/mm3; Status: F Test: EOS #; Value: 0.0; Range: 0.0-0.50; Units: K/mm3; Status: F Test: BASO #; Value: 0.2; Range: 0.0-0.2; Units: K/mm3; Status: F Test: LARGE UNSTAINED CELL #; Value: 0.2; Range: 0.0-0.4; Units: K/mm3; Status: F Lab Order: Lactic Acid (Pruitt tube on ice); SPEC'M 06/24/16 10:52 Test: LACTIC ACID LEVEL, LACTATE; Value: 1.5; Range: 0.4-2.0; Units: MMOL/L; Status: F Lab Order: Liver Profile; SPEC'M 06/24/16 10:52 Test: AST/SGOT; Value: 16; Range: 15-37; Units: U/L; Status: F Test: ALT/SGPT; Value: 23; Range: 12-78; Units: U/L; Status: F Test: ALKALINE PHOSPHATASE; Value: 85; Range: 45-117; Units: U/L; Status: F Test: BILIRUBIN,TOTAL; Value: 0.5; Range: 0.2-1.0; Units: MG/DL; Status: F Test: BILIRUBIN,DIRECT; Value: 0.1; Range: 0.0-0.2; Units: MG/DL; Status: F Test: TOTAL PROTEIN; Value: 7.8; Range: 6.4-8.2; Units: GM/DL; Status: F Test: ALBUMIN; Value: 3.6; Range: 3.2-5.2; Units: GM/DL; Status: F Test: ALBUMIN/GLOBULIN RATIO; Value: 0.86; Range: 1.00-1.93; Abnormal: Below low normal; Status: F Lab Order: MED Profile; SPEC'06/24/16 10:52 Test: GLUCOSE, FASTING; Value: 119; Range: 83-110; Abnormal: Above high normal; Units: MG/DL; Status: F Test: BLOOD UREA NITROGEN; Value: 16; Range: 7-18; Units: MG/DL; Status: F Test: CREATININE FOR GFR; Value: 1.24; Range: 0.70-1.30; Units: MG/DL; Status: F Test: GLOMERULAR FILTRATION RATE; Value: > 60.0; Range: >42; Status: F Test: SODIUM LEVEL; Value: 138; Range: 136-145; Units: MEQ/L; Status: F Test: POTASSIUM SERUM; Value: 4.0; Range: 3.5-5.1; Units: MEQ/L; Status: F Test: CHLORIDE LEVEL; Value: 104; Range: 98-107; Units: MEQ/L; Status: F Test: CARBON DIOXIDE LEVEL; Value: 26; Range: 21-32; Units: MEQ/L; Status: F Test: ANION GAP; Value: 8; Range: 8-16; Units: MEQ/L; Status: F Test: CALCIUM LEVEL; Value: 8.4; Range: 8.8-10.2; Abnormal: Below low normal; Units: MG/DL; Status: F Test Note: ; Units are mL/min/1.73 m2 Chronic Kidney Disease Staging per NKF: Stage I & II GFR >=60 Normal to Mildly Decreased Stage III GFR 30-59 Moderately Decreased Stage IV GFR 15-29 Severely Decreased Stage V GFR <15 Very Little GFR Left ESRD GFR <15 on AD[facility]URE GUIDE Lab Order: Urinalysis; SPEC'06/24/16 12:04 Test: APPEARANCE, URINE; Value: CLEAR; Range: CLEAR; Status: F Test: COLOR, URINE; Value: YELLOW; Range: YELLOW; Status: F Test: PH,URINE; Value: 6.0; Range: 5.0-9.0; Units: UNITS; Status: F Test: SPECIFIC GRAVITY URINE AUTO; Value: 1.017; Range: 1.002-1.035; Status: F Test: PROTEIN, URINE AUTO; Value: 2+; Range: NEGATIVE; Abnormal: Above high normal; Units: mg/dL; Status: F Test: GLUCOSE, URINE (UA) AUTO; Value: NEGATIVE; Range: NEGATIVE; Units: mg/dL; Status: F Test: KETONE, URINE AUTO; Value: NEGATIVE; Range: NEGATIVE; Units: mg/dL; Status: F Test: UROBILINOGEN, URINE AUTO; Value: 0.2; Range: 0.0-2.0; Units: mg/dL; Status: F Test: BILIRUBIN, URINE AUTO; Value: NEGATIVE; Range: NEGATIVE; Status: F Test: NITRITE, URINE AUTO; Value: NEGATIVE; Range: NEGATIVE; Status: F Test: LEUKOCYTE ESTERASE, URINE AUTO; Value: NEGATIVE; Range: NEGATIVE; Status: F Test: BLOOD, URINE BLOOD; Value: 2+; Range: NEGATIVE; Abnormal: Above high normal; Status: F Test: WBC, URINE AUTO; Value: 1; Range: 0-3; Units: /HPF; Status: F Test: RBC, URINE AUTO; Value: 68; Range: 0-3; Abnormal: Above high normal; Units: /HPF; Status: F Test: BACTERIA, URINE AUTO; Value: NEGATIVE; Range: NEGATIVE; Status: F Test: SQUAMOUS EPITHELIAL CELL UR AU; Value: 0; Range: 0-6; Units: /HPF; Status: F Test: MUCUS, URINE; Value: SMALL; Range: NEGATIVE; Status: F Test: HYALINE CAST, URINE AUTO; Value: 0; Range: 0-1; Units: /LPF; Status: F Test: CALCIUM OXALATE CRYSTALS; Value: SMALL; Range: NONE; Status: F Lab Order: Urine Culture; SPEC'M 06/24/16 12:04 Test: URINE CULTURE; Value: <EXTERNAL COMMENT eCWMed> FULL REPORT IN LAB NOTES (eCW and Medent).; Status: F Test: URINE CULTURE; Value: URINE CULTURE RESULT NO GROWTH; Status: F Lab Order: -Influenza A&B Rapid Antigen - Nose; SPEC'M 06/24/16 11:21 Test: INFLUENZA A RAPID SCR by ICA; Value: INFLUENZA A RESULTS POSITIVE; Abnormal: Abnormal; Status: F Test: INFLUENZA A RAPID SCR by ICA; Value: Comments:; Status: F Test: INFLUENZA B RAPID SCR by ICA; Value: INFLUENZA B RESULTS NEGATIVE; Status: F Test Note: ; The Influenza test is a direct rapid immunoassay for the qualitative detection of Influenza viral antigen. Cell culture (Viral Culture) testing should be considered to confirm NEGATIVE results and to assist in detecting other viruses that can provide similar clinical symptoms. Please contact the lab within 24 hours ([phone]) if confirmatory testing is desired. Lab Order: BLOOD CULTURES; SPEC'M 06/24/16 11:38 Test: BLOOD CULTURE; Value: No growth after 24 hours . All specimens observed; Status: F Test: BLOOD CULTURE; Value: for 5 days. Results final at that time.; Status: F Test: BLOOD CULTURE; Value: No Growth after 48 hours. All Specimens observed; Status: F Test: BLOOD CULTURE; Value: for 7 days. Results final at that time.; Status: F Radiology Order: Chest, 2 View (pa\E\lat) Test: Chest, 2 View (pa\E\lat) REASON FOR EXAMINATION: fever;Cough; CHEST X-RAY: Two views.; ; HISTORY: Fever and cough.; ; FINDINGS: The lungs are symmetrically aerated and free of infiltrate. Pleural; angles are sharp. Heart is not enlarged. The aorta is rather tortuous. There; are degenerative changes in the thoracic spine. Pulmonary vasculature is not; increased.; ; IMPRESSION: No active disease.; ; ; Signed by; Willian Linares MD 06/24/2016 12:34 P; Outcome: 13:24 Discharge ordered by Provider. jo4 14:18 Discharge Assessment: Patient awake, alert and oriented x 3. No cognitive and/or ja5 functional deficits noted. Patient verbalized understanding of disposition instructions. Discharge Assessment: Patient awake and alert. patient administered narcotics - no. The following High Risk Discharge criteria are identified: None. Discharged to home ambulatory, with family. Condition: stable. Discharge instructions given to patient, family, Instructed on discharge instructions, follow up and referral plans. medication usage, Demonstrated understanding of instructions, Prescriptions given X 1. No special radiology studies were completed. Property :Personal belongings accompany Pt. 14:20 Patient left the ED. ja5 Signatures: Dispatcher [employer] Edd Washington, Reg Reg lg Ronny Schumacher MD MD br1 Aparna Pratt RN RN hs1 Rachelle Aguilar RN RN jc4 Cara Lyons, IVON INDUSTRIAL PHOTOGRAPHER elp Elfego, Rehana, DO AGGARWAL joLuci Eugene Jessica, RN RN ja5 Sharmaine Escoto2 Corrections: (The following items were deleted from the chart) 10:36 10:29 Acuity: ROXANNE Level 3 hs1 hs1 11:24 10:34 Home Meds: allopurinol Oral; hs1 jc4 11:24 10:34 Home Meds: lisinopril Oral; hs1 jc4 Chart Complete MTDD
== END 2016-06-24 14:20 | disposition home or self-care (01) ==
LOC: M ED 10:24
DX: J11.1 Influenza due to unidentified influenza virus with other respiratory manifestations (principal); R31.9 Hematuria, unspecified; M10.9 Gout, unspecified; I10 Essential (primary) hypertension; Z79.82 Long term (current) use of aspirin; Z79.899 Other long term (current) drug therapy

== ENCOUNTER 2016-07-02 02:14 | Inpatient (IN) | payer MEDICARE ==
[~2016-07-02] VITALS: Ht 172.7 cm; Wt 99.8 kg
[2016-07-02 03:09] LABS: BASO # 0.1 K/mm3 (0.0-0.2); BASO % 0.3 % (0.0-1.0); EOS # 0.2 K/mm3 (0.0-0.50); EOS % 0.8 % (0.0-3.0); LARGE UNSTAINED CELL # 0.4 K/mm3 (0.0-0.4); LARGE UNSTAINED CELL % 1.7 % (0.0-4.0); LYMPH # 1.9 K/mm3 (1.5-4.5); LYMPH % 9.3 % (24.0-44.0); MEAN CORPUSCULAR HEMOGLOBIN 29.7 pg (27.0-33.0); MEAN CORPUSCULAR HGB CONC 32.5 g/dl (32.0-36.5); MEAN CORPUSCULAR VOLUME 91.4 fl (80.0-96.0); MONO # 0.7 K/mm3 (0.0-0.8); MONO % 3.6 % (0.0-5.0); NEUTROPHILS # 17.2 K/mm3 (1.8-7.7); NEUTROPHILS % 84.3 % (36.0-66.0); PLATELET COUNT, AUTOMATED 306 k/mm3 (150-450); RED CELL DISTRIBUTION WIDTH 13.3 % (11.5-14.5); WHITE BLOOD COUNT 20.4 K/mm3 (4.0-10.0)
[2016-07-02 03:31] LABS: ANION GAP 10 MEQ/L (8-16); BLOOD UREA NITROGEN 18 MG/DL (7-18); CALCIUM LEVEL 8.7 MG/DL (8.8-10.2); CARBON DIOXIDE LEVEL 28 MEQ/L (21-32); CHLORIDE LEVEL 102 MEQ/L (98-107); CREATININE FOR GFR 1.21 MG/DL (0.70-1.30); GLOMERULAR FILTRATION RATE > 60.0 (>42); GLUCOSE, FASTING 110 MG/DL (83-110); POTASSIUM SERUM 3.9 MEQ/L (3.5-5.1); SODIUM LEVEL 140 MEQ/L (136-145)
--- NOTE | 2016-07-02 04:00 | REPUSA ---
CLINICAL HISTORY: Cough. TECHNIQUE: Multiple axial CT images were obtained through the thorax without IV contrast material. COMMENTS: Bilateral basilar atelectatic pulmonary changes. Groundglass densities in the right upper lobe. There is no evidence of pleural or parenchymal-based mass. There are no pleural effusions. There is n o evidence of hilar or mediastinal lymphadenopathy. The heart and great vessels are within normal lainez its. The visualized portions of the liver are of uniform attenuation without mass or defect. There is no i ntra or extrahepatic biliary ductal dilatation. The spleen is unremarkable. The visualized pancreas i s of normal contour and attenuation characteristics. There is no evidence of adrenal mass. The visual ized portions of the kidneys present no abnormalities. The bony structures are free of lytic or blastic lesions. Thickened gallbladder wall. IMPRESSION: Bilateral basilar atelectatic pulmonary changes. Groundglass densities in the right upper lobe. Thickened gallbladder wall. Thank you for your kind referral of this patient.
[2016-07-02] MEDS ORDERED: ACETAMINOPHEN 325 MG TAB As Ordered ONE (04:24)
[2016-07-02 05:00] LABS: ABG BASE EXCESS 3.8 (-2.0-2.0); ABG DEVICE NASAL CANN; ABG HCO3 27.8 MEQ/L (22.0-26.0); ABG PARTIAL PRESSURE CO2 39.7 mmHg (35.0-45.0); ABG PARTIAL PRESSURE O2 59.1 mmHg (75.0-100.0); ABG STANDARD HCO3 27.7 MEQ/L (22.0-26.0); ABG pH (ARTERIAL) 7.463 UNITS (7.350-7.450)
[2016-07-02] MEDS ORDERED: cefTRIAXone SOD 1 GM VIAL (J0696) As Ordered ONE (06:26)
[2016-07-02] MEDS ORDERED: ONDANSETRON 4MG/2ML VIAL (J2405) IV PRN (06:30)
[2016-07-02] MEDS ORDERED: VITATAB11 PO (06:44)
[2016-07-02] MEDS ORDERED: FISH1000 PO (06:44)
[2016-07-02] MEDS ORDERED: ASPI81TAEC PO (06:44)
[2016-07-02] MEDS ORDERED: INDO25CA PO (06:44)
[2016-07-02] MEDS ORDERED: META0.52 PO (06:44)
[2016-07-02] MEDS ORDERED: VITA-130 PO (06:44)
[2016-07-02] MEDS ORDERED: LISI-538 PO (06:44)
[2016-07-02] MEDS ORDERED: VITA400C2 PO (06:44)
[2016-07-02] MEDS ORDERED: AMLO5TAB2 PO (06:44)
[2016-07-02] MEDS ORDERED: ALLO100T PO (06:44)
[2016-07-02] MEDS ORDERED: AZITHROMYCIN INJ 500MG VIAL (J0456) As Ordered ONE (07:07)
[2016-07-02] MEDS ORDERED: CEPACOL LOZENGE PO PRN (07:30)
--- NOTE | 2016-07-02 07:30 | HPEPDOC ---
General Date of Admission 07/02/16 Chief Complaint The patient is a 71-year-old male admitted with a reason for visit of Flu Symptoms. History of Present Illness 71-year-old male with past medical history of hypertension, gout, and dyslipidemia presents to the ER with chief complaint of malaise, lethargy, and a nonproductive cough with fever at home over the last 24 hours. Of note, the patient did visit the ER 06/24/2016 with a chief complaint of fevers and similar symptoms, and was noted to be positive for influenza. The patient was discharged on Tamiflu and has completed a 5 day trial of this. The patient states that since he took the Tamiflu he has been feeling better, however over the last 24 hours he feels that he has had a "relapse" as his fevers, nonproductive cough, and lethargy/malaise have returned. The patient denies any symptoms of lightheadedness, dizziness, chest pain, shortness of breath, abdominal pain, nausea/vomiting/diarrhea. In the ED, CT of the chest did not reveal any acute findings. However, the patient was noted to have an elevated white blood cell count of 20K (previously noted to be 12K on 06/24.) At this time, the patient will be admitted under the [facility] physician group service for further evaluation and management. Home Medications Scheduled Allopurinol (Allopurinol) 100 Mg Tab 200 MG PO DAILY (Reported) Amlodipine Besylate (Amlodipine Besylate) 5 Mg Tab 5 MG PO QHS (Reported) Ascorbic Acid (Vitamin C) 500 Mg Tab 500 MG PO DAILY (Reported) Aspirin (Aspirin EC) 81 Mg Tabec 81 MG PO DAILY (Reported) B1/B2/B3/B5/B6 (Vitamin B Complex) 1 Tab Tab 1 TAB PO DAILY (Reported) Fish Oil (Fish Oil) 1,000 Mg Cap 1,000 MG PO DAILY (Reported) Lisinopril (Lisinopril) 20 Mg Tab 20 MG PO BID (Reported) Prednisone (Prednisone) 20 Mg Tab 20 MG PO DAILY Psyllium (Metamucil) 0.52 Gm Cap 1.04 GM PO DAILY (Reported) Vitamin E (Vitamin E) 400 Unit Cap 400 UNIT PO DAILY (Reported) Scheduled PRN Indomethacin (Indomethacin) 25 Mg Cap 50 MG PO DAILY PRN PRN GOUT FLAREUP ( Reported) Allergies Coded Allergies: No Known Allergies (Unverified , 07/02/16) Past Medical History Medical History As noted in HPI. Family History Significant Family History: No pertinent family hx Social History * Smoker: non-smoker Alcohol: denies Drugs: denies Review of Symptoms Other systems 10 point review of systems negative unless otherwise specified in HPI. Physical Examination General Exam: Positive: Alert, Cooperative, No Acute Distress ENT Exam: Positive: Atraumatic, Mucous membr. moist/pink Neck Exam: Negative: JVD Chest Exam: Positive: Clear to auscultation, Normal air movement, Negative: Rales Heart Exam: Positive: Normal S1, Normal S2, Rate Normal Abdomen Exam: Positive: Soft, Negative: Tenderness Extremity Exam: Negative: Swelling, Tenderness Vital Signs As noted in EMR Laboratory Data Labs 24H Laboratory Tests 2 07/02/16 03:02: Anion Gap 10, White Blood Count 20.4H, Red Blood Count 4.36, Hemoglobin 13.0L, Hematocrit 39.9L, Mean Corpuscular Volume 91.4, Mean Corpuscular Hemoglobin 29.7 , Mean Corpuscular Hemoglobin Concent 32.5, Red Cell Distribution Width 13.3, Platelet Count 306, Neutrophils (%) (Auto) 84.3H, Lymphocytes (%) (Auto) 9.3L, Monocytes (%) (Auto) 3.6, Eosinophils (%) (Auto) 0.8, Basophils (%) (Auto) 0.3, Neutrophils # (Auto) 17.2H, Lymphocytes # (Auto) 1.9, Monocytes # (Auto) 0.7, Eosinophils # (Auto) 0.2, Basophils # (Auto) 0.1, Blood Urea Nitrogen 18, Creatinine 1.21, Sodium Level 140, Potassium Level 3.9, Chloride Level 102, Carbon Dioxide Level 28, Calcium Level 8.7L, Glomerular Filtration Rate > 60.0, Large Unclassified Cells # 0.4, Large Unclassified Cells % 1.7 07/02/16 04:54: Arterial Blood pH 7.463H, Arterial Blood Partial Pressure CO2 39.7, Arterial Blood Partial Pressure O2 59.1L, Arterial Blood Total CO2 29.0, Arterial Blood HCO3 27.8H, Arterial Blood Base Excess 3.8H, Arterial Blood Oxygen Saturation 91.9L, Blood Gas Bicarbonate Standard 27.7H, Oxygen Delivery Device NASAL MADIHA 07/02/16 05:22: Lactic Acid (Sepsis) 1.0 CBC/BMP Laboratory Tests 07/02/16 03:02 Calcium Level 8.7 L, Red Blood Count 4.36, Mean Corpuscular Volume 91.4, Mean Corpuscular Hemoglobin 29.7, Mean Corpuscular Hemoglobin Concent 32.5, Red Cell Distribution Width 13.3, Neutrophils (%) (Auto) 84.3 H, Lymphocytes (%) (Auto) 9.3 L, Monocytes (%) (Auto) 3.6, Eosinophils (%) (Auto) 0.8, Basophils (%) (Auto ) 0.3, Neutrophils # (Auto) 17.2 H, Lymphocytes # (Auto) 1.9, Monocytes # (Auto ) 0.7, Eosinophils # (Auto) 0.2, Basophils # (Auto) 0.1 Microbiology Microbiology 07/02/16 Blood Culture, Received Pending 07/02/16 Blood Culture, Received Pending 07/02/16 Respiratory Virus Panel (PCR) (MARTELL), Received Pending Plan / VTE VTE Prophylaxis Ordered?: Yes Plan Plan Fever, lethargy and malaise possibly secondary to viral respiratory infection We'll admit for observation CT of the chest with no acute findings noted Given the patient's elevated white blood cell count of 20K, we will order blood cultures, and a respiratory panel Patient started on Rocephin Supportive treatment with IV fluid hydration, Tylenol, and Mucinex Continue to monitor the patient's progress Hypertension, stable Continue on current regimen Gout Continue allopurinol DVT prophylaxis-Lovenox The patient will be admitted under [facility] physician group. SAJAN TENORIO MD Jul 02, 2016 07:30
[2016-07-02] MEDS ORDERED: NS 1,000 ML IV SCH (08:00)
--- NOTE | 2016-07-02 08:41 | REP ---
PA and lateral chest: Comparison is 06/24/2016. There is a right suprahilar infiltrate as an interval change. Remainder the lung ward are clear. No pleural effusions. Cardiac size is upper normal. Mediastinum and bony thorax are unremarkable. Impression: Acute right suprahilar infiltrate. Signed by Darren Gil MD 07/02/2016 08:25 A
[2016-07-02] MEDS: guaiFENesin ER 600 MG TAB PO SCH ×2 (09:00→20:51)
[2016-07-02] MEDS: METAMUCIL (PSYLLIUM) PACKET PO SCH (09:00)
[2016-07-02] MEDS ORDERED: VANCOMYCIN HCL 1,000 MG, VIAL MATE ADAPTER 1 EACH in D5W 250 ML IV SCH (09:00)
[2016-07-02] MEDS ORDERED: VANCOMYCIN 1000 MG/20 ML VIAL (J3370) As Ordered ONE (09:30)
[2016-07-02] MEDS: ASCORBIC ACID 500 MG TAB PO SCH (09:41)
[2016-07-02] MEDS: OMEGA-3 1050MG CAPSULE PO SCH (09:41)
[2016-07-02] MEDS: ASPIRIN 81 MG ENTERIC TAB PO SCH (09:41)
[2016-07-02] MEDS: ALLOPURINOL 100 MG TAB PO SCH (09:41)
[2016-07-02] MEDS: ENOXAPARIN 40 MG/0.4 ML SYRINGE (J1650) SC SCH (09:42)
[2016-07-02 10:00] VITALS: BP 142/77
--- NOTE | 2016-07-02 11:58 | EDDOCDS ---
Physician Documentation [facility] Name: Angel Jay Age: 71 yrs Sex: Male : 1945 Arrival Date: 07/02/2016 Time: 02:14 Bed Admit Hold Private MD: Disposition: 07/02 06:12 Critical Care: Critical care not applicable. pc Disposition: 07/02/16 06:20 Hospitalization ordered by Juvencio Orellana for Inpatient Admission. Preliminary diagnosis are Bronchopneumonia, unspecified organism - RUL, Hypoxemia. - Bed requested for M PED. - Status is Inpatient Admission. aa3 - Condition is Stable. - Problem is new. - Symptoms have improved. HPI: 02:53 This 71 yrs old Male presents to ER via Wheelchair with complaints of Flu pc Symptoms. 02:53 The history is obtained from the patient, the patient's spouse. He had URI symptoms for pc 2-3 days before presenting on June 24, at which time he was diagnosed with Influenza A. He was given antivirals without much effect, as he has had chills, low grade fevers and myalgias since. He was seen by his PCP 2 days ago and given Mucinex. He had a temp of 101 earlier today that is 99.7 in the ED. He has a non-productive cough. He has no other new complaints. Historical: - Allergies: No known drug Allergies; - Home Meds: 1. allopurinol 100 mg Oral tab 2 tabs once daily 2. amlodipine 5 mg Oral tab 1 tab once daily 3. aspirin 81 mg Oral chew 1 tab once daily 4. indomethacin 25 mg Oral cap 1 cap as needed for gout flare up 5. lisinopril 20 mg Oral tab 1 tab bid - PMHx: Gout; Hypertension; - PSHx: eye surgery - right eye removed; - The history from nurses notes was reviewed: and I agree with what is documented. - Social history: Smoking status: Patient states was never smoker of tobacco. No barriers to communication noted, The patient speaks fluent Kinyarwanda, Speaks appropriately for age. - Family history: Not pertinent. - : The pt / caregiver states he / she is not on anticoagulants. Home medication list is obtained from the patient. - Hospitalizations: : No recent hospitalization is reported. - Exposure Risk Screening:: None identified. . - Immunization history:: All immunizations up-to-date. - Social history:: the patient is a non-smoker, the patient does not drink alcohol. ROS: 02:53 All systems are negative except as listed. pc Exam: 02:53 General Appearance: no acute distress, alert. pc 02:53 EENT: normal eye inspection, ears, nose and throat normal, pharynx normal, mucous membranes moist 02:53 Neck: The exam reveals no acute abnormalities. ROM is normal and painless. No nuchal rigidity is noted.. 02:53 Respiratory: no respiratory distress, normal breath sounds. 02:53 CVS: regular pulse rate, regular rhythm, normal S1 and S2, no murmurs, strong peripheral pulses. 02:53 Abdomen: soft, non-tender, no organomegaly, normal bowel sounds. 02:53 Back: sebaceous cyst on back, without erythema or pain on palpation. 02:53 : bladder is non-distended, non-tender. 02:53 Skin: skin color is normal, warm, dry. 02:53 Extremities: The extremities have a grossly normal appearance, are non-tender, without acute ROM abnormalities. 02:53 Neuro: oriented x 3, cranial nerves normal as tested, no motor deficits, no sensory deficits, normal gait. Vital Signs: 02:22 BP 122 / 78; Pulse 107; Resp 22; Temp 99.7(TE); Pulse Ox 92% on R/A; Weight 99.79 kg / nn1 220 lbs; Height 5 ft. 8 in. (172.72 cm) (R); Pain 5/10; 04:22 BP 152 / 82; Pulse 84; Resp 22; Temp 101.2(O); Pulse Ox 93% on R/A; Pain 3/10; tm5 05:27 BP 141 / 76; Pulse 79; Resp 18; Temp 100.1(O); Pulse Ox 94% ; Pain 0/10; tm5 05:27 BP 141 / 76; Pulse 79; Resp 18; Temp 100.1(O); Pulse Ox 94% on R/A; Pain 0/10; tm5 05:53 BP 132 / 81 (auto/); tm5 05:53 Pulse 76 MON; Resp 20 S; Pulse Ox 93% on R/A; Pain 0/10; tm5 06:23 BP 151 / 73 (auto/); tm5 06:23 Pulse 72 MON; Resp 20 S; Temp 99.9(O); Pulse Ox 93% on 2 lpm NC; Pain 0/10; tm5 07:23 BP 142 / 77 (auto/); kc3 07:23 Pulse 72 MON; Pulse Ox 95% ; kc3 07:40 Temp 98.5(O); kc3 07:40 Temp 98.5(O); kc3 02:22 Body Mass Index 33.45 (99.79 kg, 172.72 cm) nn1 MDM: 02:53 Chest, 2 View (pa\E\lat) Ordered. EDMS 02:53 CBC with Diff Ordered. EDMS 02:53 MED Profile Ordered. EDMS 02:53 Differential Diagnosis: recent Influenza infection with continued cough, myalgias, low pc grade fevers. Plan: CXR, labs, advice. 03:14 CBC with Diff Reviewed. pc 03:17 CT Chest Without Contrast Ordered. EDMS 03:33 MED Profile Reviewed. pc 04:00 Financial registration complete. hs2 04:03 [facility] [place] Agreement was scanned into R17 and attached to record. hs2 04:05 CT Chest Without Contrast Reviewed. pc 04:21 Data reviewed: old medical records, vital signs, nurses notes, lab test results, all pc radiology studies and available results. Test interpretation: LAB - all labs as ordered have been reviewed, interpreted and considered in the overall management of the clinical presentation; X-RAY - interpreted by me, 2 view chest, ?RUL infiltrate interpreted by Radiologist and personally reviewed, Chest CT; RUL ground glass opacities, bibasilar atelectasis, thickened gallbladder wall. 04:24 Call Respiratory ordered. pc 04:24 Acetaminophen Tablet 650 mg PO once ordered. pc 04:25 Call Respiratory complete. mdr 04:25 -Arterial Blood Gas Ordered. EDMS 05:04 -Arterial Blood Gas Reviewed. pc 05:07 IV Saline Lock ordered. pc 05:07 -Blood Culture (Adults Only), peripheral from different site, or from device/port/PICC pc etc. if present ordered. 05:08 Lactic Acid (Pruitt tube on ice) Ordered. EDMS 05:08 -Blood Culture Ordered. EDMS 05:10 -Blood Culture (Adults Only), peripheral from different site, or from device/port/PICC mdr etc. if present complete. 05:11 BLOOD CULTURES Ordered. EDMS 06:05 Lactic Acid (Pruitt tube on ice) Reviewed. pc 06:12 The patient has been re-examined and re-evaluated. The patient's symptoms have mildly pc improved after treatment. Physician consultation: Dr. Juvencio Orellana was contacted at 06:13, regarding admission, and will see patient in ED, shortly. 06:12 ED course: His CURB-65 was only 1 or low risk but his PORT/PSI score was 80. Given his pc general weakness, continued fevers and leukocytosis, observation admission is reasonable. Disposition: The historical points, examination findings, and any diagnostic results supporting the provided diagnosis, were discussed with the patient or legal guardian. The need for further work-up and/or treatment in the hospital was explained. 06:15 cefTRIAXone 1 grams IVPB once over 30 mins; dilute in 50mL of NS or D5W ordered. pc 06:15 azithromycin 500 mg IVPB once over 1 hrs; dilute in 250mL of D5W or NS ordered. pc 06:15 Misc Grinding Machine Operator Portable Order ordered. pc 06:16 BED REQUEST+ADM ordered. EDMS 06:18 Misc Grinding Machine Operator Portable Order complete. mdr 06:18 RESPIRATORY PANEL Ordered. EDMS 07:13 Admission / Observation Status ordered. EDMS 07:13 2 GRAM SODIUM DIET ordered. EDMS 07:13 URINALYSIS Ordered. EDMS 08:03 SPUTUM CULTURE AND GRAM STAIN Ordered. EDMS Administered Medications: 04:27 Drug: Acetaminophen 650 mg [acetaminophen 325 mg tablet (2 tabs)] Route: PO; tm5 05:27 Follow up: BP 141 / 76; Pulse 79 bpm; Resp 18 bpm; Temp 100.1 Oral; Pulse Ox 94% RA; tm5 Pain 0/10 Adult; Response: No Adverse Reaction; Temperature is decreased 07:40 Follow up: Temp 98.5 Oral kc3 06:32 Drug: cefTRIAXone 1 grams [ceftriaxone 1 gram solution for injection] {Note: given IVPB tm5 in 100CC D5 over 30 minutes.} Route: IVPB; Infused Over: 30 mins; Site: right hand; 06:56 Follow up: IV Status: Completed infusion; IV Intake: 100ml tm5 06:57 Follow up: Response: No Adverse Reaction tm5 07:03 Follow up: IV Status: Completed infusion kc3 07:18 Drug: azithromycin 500 mg [azithromycin 500 mg intravenous solution] Route: IVPB; kc3 Infused Over: 1 hrs; Site: right hand; Signatures: Dispatcher [employer] EDMS Diego Matias MD MD pc Jobson, Karen, RN RN kpj Tiffanie Parker RN RN aa3 Juanjose Vela RN RN nn1 Mitch Kaur, GARMENT LINER GARMENT LINER mdr Rima Iraheta, Reg Reg hs2 Gali Pimentel RN RN tm5 Cassi Alvarado RN kc3 The chart was reviewed and I authenticate all verbal orders and agree with the evaluation and treatment provided.Corrections: (The following items were deleted from the chart) 07: 07:13 RESPIRATORY PANEL ordered. EDMS EDMS 07: 07:14 BLOOD CULTURES ordered. EDMS EDMS Attachments: 04:03 [facility] Payment Agreement hs2 MTDD
--- NOTE | 2016-07-02 11:58 | EDDOCDS ---
Nurse's Notes [facility] Name: Angel Jay Age: 71 yrs Sex: Male : 1945 Arrival Date: 07/02/2016 Time: 02:14 Bed Admit Hold Private MD: Diagnosis: Bronchopneumonia, unspecified organism-RUL;Hypoxemia Presentation: 07/02 02:18 Presenting complaint: states: patient diagnosed with flu a week ago Thursday. nn1 reports patient is not better. Patient reports he is shaky, body aches, congestion. Denies SOB. States patient is finished with Tamiflu prescription. Adult Sepsis Screening: The patient does not have new or worsening altered mentation. Patient's respiratory rate is less than 22. Systolic blood pressure is greater than 100. Patient has a qSOFA score of 0- Negative Sepsis Screen. Suicide/Homicide risk assessment- the patient denies having any suicidal and/or homicidal ideations and does not present with any other emotional, behavioral or mental health complaints. Status: Patient is not a coordinator of library services or dependent. Transition of care: patient was not received from another setting of care. 02:18 Acuity: ROXANNE Level 3 nn1 02:18 Method Of Arrival: Wheelchair nn1 Triage Assessment: 02:25 General: Appears ill, Behavior is appropriate for age, cooperative. Pain: Location: nn1 body aches Pain currently is 5 out of 10 on a pain scale. Pain began 1-2 days symptoms began to worsen. The patient is triaged at the bedside. See Assessment in Nurses Notes section of ED record. Neurological: Level of Consciousness is awake, alert, obeys commands. Respiratory: Airway is patent Respiratory effort is even, Respiratory pattern is regular, Reports Congestion, coughing up yellow phlegm. Derm: Skin is pink, warm & dry. Historical: - Allergies: No known drug Allergies; - Home Meds: 1. allopurinol 100 mg Oral tab 2 tabs once daily 2. amlodipine 5 mg Oral tab 1 tab once daily 3. aspirin 81 mg Oral chew 1 tab once daily 4. indomethacin 25 mg Oral cap 1 cap as needed for gout flare up 5. lisinopril 20 mg Oral tab 1 tab bid - PMHx: Gout; Hypertension; - PSHx: eye surgery - right eye removed; - The history from nurses notes was reviewed: and I agree with what is documented. - Social history: Smoking status: Patient states was never smoker of tobacco. No barriers to communication noted, The patient speaks fluent French, Speaks appropriately for age. - Family history: Not pertinent. - : The pt / caregiver states he / she is not on anticoagulants. Home medication list is obtained from the patient. - Hospitalizations: : No recent hospitalization is reported. - Exposure Risk Screening:: None identified. . - Immunization history:: All immunizations up-to-date. - Social history:: the patient is a non-smoker, the patient does not drink alcohol. Screenin:48 Screening information is obtained from the patient. Fall risk: No risks identified. tm5 Assistance ADL's: requires no assistance with activities of daily living. Abuse/DV Screen: The patient / caregiver reports he/she is: not in a situation that causes fear, pain or injury. Nutritional screening: No deficits noted. Advance Directives: Currently, there is a health care proxy, . home support is adequate. Assessment: 02:48 General: Appears ill, Behavior is appropriate for age, cooperative. Pain: Location: tm5 "achy all over" per pt Pain currently is 6 out of 10 on a pain scale. Quality of pain is described as aching. Neurological: Level of Consciousness is awake, alert, Oriented to person, place, time. Respiratory: Airway is patent Respiratory effort is even, unlabored, Respiratory pattern is regular, symmetrical. GI: No deficits noted. : No deficits noted. Derm: Skin is pink, warm & dry. 03:04 Respiratory: Breath sounds are clear bilaterally. tm5 04:28 Reassessment: Patient appears in no apparent distress at this time. pt had to be tm5 awakened for vital signs, pt states that he is still feeling achy at this time . 05:27 Reassessment: Patient appears in no apparent distress at this time. Patient states tm5 feeling better. Patient states symptoms have improved. 07:23 General: Appears in no apparent distress, comfortable, Behavior is appropriate for age, kc3 cooperative. Pain: Location: body aches Pain currently is 5 out of 10 on a pain scale. Neurological: Level of Consciousness is awake, Oriented to person, place, time. Respiratory: Airway is patent Respiratory effort is even, unlabored, Respiratory pattern is regular, symmetrical, Breath sounds are clear bilaterally. Derm: Skin is pink, warm & dry. Musculoskeletal: Circulation, motion, and sensation intact. 08:08 General: Appears in no apparent distress, comfortable, Pt up to side of bed. Diet tray kc3 given. No complaints at this time. Respirations even and unlabored. Pt remains on O2 at 2lpm. Will continue to monitor. . 09:00 General: Care taken over by ED Caicedo nurse. All charting will continue in [facility].. aa3 Vital Signs: 02:22 BP 122 / 78; Pulse 107; Resp 22; Temp 99.7(TE); Pulse Ox 92% on R/A; Weight 99.79 kg; nn1 Height 5 ft. 8 in. (172.72 cm) (R); Pain 5/10; 04:22 BP 152 / 82; Pulse 84; Resp 22; Temp 101.2(O); Pulse Ox 93% on R/A; Pain 3/10; tm5 05:27 BP 141 / 76; Pulse 79; Resp 18; Temp 100.1(O); Pulse Ox 94% ; Pain 0/10; tm5 05:27 BP 141 / 76; Pulse 79; Resp 18; Temp 100.1(O); Pulse Ox 94% on R/A; Pain 0/10; tm5 05:53 BP 132 / 81 (auto/); tm5 05:53 Pulse 76 MON; Resp 20 S; Pulse Ox 93% on R/A; Pain 0/10; tm5 06:23 BP 151 / 73 (auto/); tm5 06:23 Pulse 72 MON; Resp 20 S; Temp 99.9(O); Pulse Ox 93% on 2 lpm NC; Pain 0/10; tm5 07:23 BP 142 / 77 (auto/); kc3 07:23 Pulse 72 MON; Pulse Ox 95% ; kc3 07:40 Temp 98.5(O); kc3 07:40 Temp 98.5(O); kc3 02:22 Body Mass Index 33.45 (99.79 kg, 172.72 cm) nn1 Vitals: 02:22 Log In Time: July 02, 2016 at 02:14. nn1 ED Course: 02:15 Patient visited by Diony Norman, Reg. pm4 02:15 Patient moved to Waiting pm4 02:20 Triage Initiated nn1 02:34 Patient moved to 11 tm5 02:44 Diego Matias MD is Attending Physician. pc 02:48 Awaiting ED physician evaluation. tm5 02:48 The patient / caregiver is instructed regarding the plan of care and ED course. Family tm5 accompanied patient. 02:50 Patient visited by Diego Matias MD. pc 02:57 Patient moved to Radiology garcia 03:04 Patient moved to radiology. tm5 03:04 MED Profile Sent. tm5 03:04 CBC with Diff Sent. tm5 03:04 Labs drawn. (by ED staff). Sent per order to lab. tm5 03:09 Patient visited by Gali Pimentel RN. tm5 03:09 Patient moved back from radiology. tm5 03:12 Patient moved to 11 garcia 03:26 Patient moved back from [address]. tm5 04:03 [facility] Payment Agreement was scanned into [employer] and attached to record. hs2 04:03 CT Chest Without Contrast Returned. EDMS 04:11 Patient visited by Diego Matias MD. pc 04:22 Patient visited by Gali Pimentel RN. tm5 04:55 -Arterial Blood Gas Sent. lf2 05:26 Patient visited by Gali Pimentel RN. tm5 05:26 BLOOD CULTURES Sent. tm5 05:26 -Blood Culture Sent. tm5 05:27 Lactic Acid (Pruitt tube on ice) Sent. tm5 05:27 Inserted saline lock: 20 gauge in right hand and blood collected. The patient tolerated tm5 the procedure well. Labs/Blood culture drawn. 05:56 Patient visited by Gali Pimentel RN. tm5 05:56 Gali Pimentel RN is Primary Nurse. tm5 05:56 Patient visited by Gali Pimentel RN. tm5 06:20 Juvencio Orellana is Hospitalizing Provider. pc 06:20 Patient visited by Gali Pimentel RN. tm5 06:20 O2 via nasal cannula pt placed on 02 \\T\\ 2L NC per MD's request. tm5 06:58 Patient visited by Gali Pimentel RN. tm5 06:59 Report given to Cassi Alvarado RN. tm5 07:00 Primary Nurse role handed off by Gali Pimentel RN tm5 07:18 URINALYSIS Sent. kc3 07:23 Cassi Alvarado RN is Primary Nurse. kc3 07:23 Patient moved to Admit Hold kpj 09:03 Chest, 2 View (pa\\E\\lat) Returned. EDMS 09:29 Patient moved to 21 kc3 10:14 Patient visited by Tiffanie Parker,MONICA. aa3 11:14 Patient moved to Admit Hold kpj 11:40 No procedures done that require assistance. aa3 Administered Medications: 04:27 Drug: Acetaminophen 650 mg [acetaminophen 325 mg tablet (2 tabs)] Route: PO; tm5 05:27 Follow up: BP 141 / 76; Pulse 79 bpm; Resp 18 bpm; Temp 100.1 Oral; Pulse Ox 94% RA; tm5 Pain 0/10 Adult; Response: No Adverse Reaction; Temperature is decreased 07:40 Follow up: Temp 98.5 Oral kc3 06:32 Drug: cefTRIAXone 1 grams [ceftriaxone 1 gram solution for injection] {Note: given IVPB tm5 in 100CC D5 over 30 minutes.} Route: IVPB; Infused Over: 30 mins; Site: right hand; 06:56 Follow up: IV Status: Completed infusion; IV Intake: 100ml tm5 06:57 Follow up: Response: No Adverse Reaction tm5 07:03 Follow up: IV Status: Completed infusion kc3 07:18 Drug: azithromycin 500 mg [azithromycin 500 mg intravenous solution] Route: IVPB; kc3 Infused Over: 1 hrs; Site: right hand; Intake: 06:56 IV: 100.00ml; Total: 100.00ml. tm5 RT: 04:55 ABG's drawn from left radial artery allens test done and positive pressure held for 5 lf2 minutes pressure bandage applied specimen sent pt. tolerated well. Oxygen is room air. Order Results: Lab Order: CBC with Diff; SPEC'M 07/02/16 03:02 Test: WHITE BLOOD COUNT; Value: 20.4; Range: 4.0-10.0; Abnormal: Above high normal; Units: K/mm3; Status: F Test: RED BLOOD COUNT; Value: 4.36; Range: 4.30-6.10; Units: M/mm3; Status: F Test: HEMOGLOBIN; Value: 13.0; Range: 14.0-18.0; Abnormal: Below low normal; Units: g/dl; Status: F Test: HEMATOCRIT; Value: 39.9; Range: 42.0-52.0; Abnormal: Below low normal; Units: %; Status: F Test: MEAN CORPUSCULAR VOLUME; Value: 91.4; Range: 80.0-96.0; Units: fl; Status: F Test: MEAN CORPUSCULAR HEMOGLOBIN; Value: 29.7; Range: 27.0-33.0; Units: pg; Status: F Test: MEAN CORPUSCULAR HGB CONC; Value: 32.5; Range: 32.0-36.5; Units: g/dl; Status: F Test: RED CELL DISTRIBUTION WIDTH; Value: 13.3; Range: 11.5-14.5; Units: %; Status: F Test: PLATELET COUNT, AUTOMATED; Value: 306; Range: 150-450; Units: k/mm3; Status: F Test: NEUTROPHILS %; Value: 84.3; Range: 36.0-66.0; Abnormal: Above high normal; Units: %; Status: F Test: LYMPH %; Value: 9.3; Range: 24.0-44.0; Abnormal: Below low normal; Units: %; Status: F Test: MONO %; Value: 3.6; Range: 0.0-5.0; Units: %; Status: F Test: EOS %; Value: 0.8; Range: 0.0-3.0; Units: %; Status: F Test: BASO %; Value: 0.3; Range: 0.0-1.0; Units: %; Status: F Test: LARGE UNSTAINED CELL %; Value: 1.7; Range: 0.0-4.0; Units: %; Status: F Test: NEUTROPHILS #; Value: 17.2; Range: 1.8-7.7; Abnormal: Above high normal; Units: K/mm3; Status: F Test: LYMPH #; Value: 1.9; Range: 1.5-4.5; Units: K/mm3; Status: F Test: MONO #; Value: 0.7; Range: 0.0-0.8; Units: K/mm3; Status: F Test: EOS #; Value: 0.2; Range: 0.0-0.50; Units: K/mm3; Status: F Test: BASO #; Value: 0.1; Range: 0.0-0.2; Units: K/mm3; Status: F Test: LARGE UNSTAINED CELL #; Value: 0.4; Range: 0.0-0.4; Units: K/mm3; Status: F Lab Order: MED Profile; [facility]07/02/16 03:02 Test: GLUCOSE, FASTING; Value: 110; Range: 83-110; Units: MG/DL; Status: F Test: BLOOD UREA NITROGEN; Value: 18; Range: 7-18; Units: MG/DL; Status: F Test: CREATININE FOR GFR; Value: 1.21; Range: 0.70-1.30; Units: MG/DL; Status: F Test: GLOMERULAR FILTRATION RATE; Value: > 60.0; Range: >42; Status: F Test: SODIUM LEVEL; Value: 140; Range: 136-145; Units: MEQ/L; Status: F Test: POTASSIUM SERUM; Value: 3.9; Range: 3.5-5.1; Units: MEQ/L; Status: F Test: CHLORIDE LEVEL; Value: 102; Range: 98-107; Units: MEQ/L; Status: F Test: CARBON DIOXIDE LEVEL; Value: 28; Range: 21-32; Units: MEQ/L; Status: F Test: ANION GAP; Value: 10; Range: 8-16; Units: MEQ/L; Status: F Test: CALCIUM LEVEL; Value: 8.7; Range: 8.8-10.2; Abnormal: Below low normal; Units: MG/DL; Status: F Test Note: ; Units are mL/min/1.73 m2 Chronic Kidney Disease Staging per NKF: Stage I & II GFR >=60 Normal to Mildly Decreased Stage III GFR 30-59 Moderately Decreased Stage IV GFR 15-29 Severely Decreased Stage V GFR <15 Very Little GFR Left ESRD GFR <15 on LAUNDRY WASHER Lab Order: -Arterial Blood Gas; [facility]07/02/16 04:54 Test: ABG pH (ARTERIAL); Value: 7.463; Range: 7.350-7.450; Abnormal: Above high normal; Units: UNITS; Status: F Test: ABG PARTIAL PRESSURE CO2; Value: 39.7; Range: 35.0-45.0; Units: mmHg; Status: F Test: ABG PARTIAL PRESSURE O2; Value: 59.1; Range: 75.0-100.0; Abnormal: Below low normal; Units: mmHg; Status: F Test: ABG TOTAL CO2; Value: 29.0; Range: 23.0-31.0; Units: MEQ/L; Status: F Test: ABG HCO3; Value: 27.8; Range: 22.0-26.0; Abnormal: Above high normal; Units: MEQ/L; Status: F Test: ABG BASE EXCESS; Value: 3.8; Range: -2.0-2.0; Abnormal: Above high normal; Status: F Test: ABG STANDARD HCO3; Value: 27.7; Range: 22.0-26.0; Abnormal: Above high normal; Units: MEQ/L; Status: F Test: ABG O2 SATURATION; Value: 91.9; Range: 95.0-99.0; Abnormal: Below low normal; Units: %; Status: F Test: ABG DEVICE; Value: NASAL MADIHA; Status: F Lab Order: Lactic Acid (Pruitt tube on ice); SPEC'M 07/02/16 05:22 Test: LACTIC ACID SEPSIS PROTOCOL; Value: 1.0; Range: 0.4-2.0; Units: MMOL/L; Status: F Lab Order: RESPIRATORY PANEL; SPECM 07/02/16 06:25 Test: RESPIRATORY PANEL; Value: RP PANEL RESULT NEGATIVE by PCR; Status: F Test: RESPIRATORY PANEL; Value: Comments:; Status: F Test Note: ; This respiratory PCR panel detects Influenza A H1, H3 and 2009 H1 viruses, Influenza B virus, Respiratory syncytial virus, Human metapneumovirus, Parainfluenza virus 1, 2, 3 and 4, Adenovirus, Rhinovirus/Enterovirus, Coronavirus HKU1, NL63, OC43 and 229E, Bordetella pertussis, Mycoplasma pneumoniae and Chlamydia pneumoniae. Lab Order: URINALYSIS; SPEC'M 07/02/16 07:19 Test: APPEARANCE, URINE; Value: HAZY; Range: CLEAR; Status: F Test: COLOR, URINE; Value: YELLOW; Range: YELLOW; Status: F Test: PH,URINE; Value: 6.0; Range: 5.0-9.0; Units: UNITS; Status: F Test: SPECIFIC GRAVITY URINE AUTO; Value: 1.020; Range: 1.002-1.035; Status: F Test: PROTEIN, URINE AUTO; Value: 1+; Range: NEGATIVE; Abnormal: Above high normal; Units: mg/dL; Status: F Test: GLUCOSE, URINE (UA) AUTO; Value: NEGATIVE; Range: NEGATIVE; Units: mg/dL; Status: F Test: KETONE, URINE AUTO; Value: NEGATIVE; Range: NEGATIVE; Units: mg/dL; Status: F Test: UROBILINOGEN, URINE AUTO; Value: 0.2; Range: 0.0-2.0; Units: mg/dL; Status: F Test: BILIRUBIN, URINE AUTO; Value: NEGATIVE; Range: NEGATIVE; Status: F Test: NITRITE, URINE AUTO; Value: NEGATIVE; Range: NEGATIVE; Status: F Test: LEUKOCYTE ESTERASE, URINE AUTO; Value: NEGATIVE; Range: NEGATIVE; Status: F Test: BLOOD, URINE BLOOD; Value: 2+; Range: NEGATIVE; Abnormal: Above high normal; Status: F Test: WBC, URINE AUTO; Value: 10; Range: 0-3; Abnormal: Above high normal; Units: /HPF; Status: F Test: RBC, URINE AUTO; Value: 108; Range: 0-3; Abnormal: Above high normal; Units: /HPF; Status: F Test: BACTERIA, URINE AUTO; Value: 1+; Range: NEGATIVE; Abnormal: Above high normal; Status: F Test: SQUAMOUS EPITHELIAL CELL UR AU; Value: 0; Range: 0-6; Units: /HPF; Status: F Test: MUCUS, URINE; Value: SMALL; Range: NEGATIVE; Status: F Test: HYALINE CAST, URINE AUTO; Value: 0; Range: 0-1; Units: /LPF; Status: F Radiology Order: Chest, 2 View (pa\\E\\lat) Test: Chest, 2 View (pa\\E\\lat) REASON FOR EXAMINATION: fever; PA and lateral chest:; ; Comparison is 06/24/2016.; ; There is a right suprahilar infiltrate as an interval change.; ; Remainder the lung ward are clear. No pleural effusions. Cardiac size is; upper normal. Mediastinum and bony thorax are unremarkable.; ; Impression:; ; Acute right suprahilar infiltrate.; ; ; Signed by; Darren Gil MD 07/02/2016 08:25 A; Radiology Order: CT Chest Without Contrast Test: CT Chest Without Contrast REASON FOR EXAMINATION: cough, ?RUL infiltrate on CXR; ; CLINICAL HISTORY: Cough.; TECHNIQUE: Multiple axial CT images were obtained through the thorax without IV contrast material.; COMMENTS:; Bilateral basilar atelectatic pulmonary changes.; Groundglass densities in the right upper lobe.; There is no evidence of pleural or parenchymal-based mass. There are no pleural effusions. There is n; o evidence of hilar or mediastinal lymphadenopathy. The heart and great vessels are within normal lainez; its.; The visualized portions of the liver are of uniform attenuation without mass or defect. There is no i; ntra or extrahepatic biliary ductal dilatation. The spleen is unremarkable. The visualized pancreas i; s of normal contour and attenuation characteristics. There is no evidence of adrenal mass. The visual; ized portions of the kidneys present no abnormalities.; The bony structures are free of lytic or blastic lesions.; Thickened gallbladder wall.; IMPRESSION:; Bilateral basilar atelectatic pulmonary changes.; Groundglass densities in the right upper lobe.; Thickened gallbladder wall.; Thank you for your kind referral of this patient.; ; ; Outcome: 06:20 Decision to Hospitalize by Provider. pc 11:40 Discharge Assessment: Patient awake and alert. Oriented to person, place and time. aa3 Patient verbalized understanding of disposition instructions. Patient has no functional deficits. patient administered narcotics - no. The following High Risk Discharge criteria are identified: None. Admitted to Pediatrics accompanied by tech, via stretcher, with oxygen, with chart. Condition: good. CT Study completed. Admission hand-off: Report called to Negar Michael RN. Property :Personal belongings accompany Pt. 11:57 Patient left the ED. aa3 Signatures: Dispatcher [employer] EDMS Diego Matias MD MD pc Jobson, Karen, RN RN kpj Bartlett, Floyd fab Asselin, Abby, RN RN aa3 Juanjose Vela RN RN nn1 Cassi Alvarado RN RN kc3 Arely Allred,RT RT lf2 Rima Iraheta, Reg Reg hs2 Gali Pimentel RN RN tm5 Diony Norman, Reg Reg pm4 Corrections: (The following items were deleted from the chart) 06:33 06:32 cefTRIAXone 1 grams IVPB in right hand over 30 mins tm5 tm5 07:26 07:23 Respiratory: Airway is patent Respiratory effort is even, unlabored, Respiratory kc3 pattern is regular, symmetrical, kc3 MTDD
[2016-07-02 12:05] VITALS: BP 171/84
[2016-07-02] MEDS: ACETAMINOPHEN TAB 650MG DOSE (2X325MG) PO PRN (14:33)
--- NOTE | 2016-07-02 14:56 | PHACANCOPD ---
PHARMACY VANCOMYCIN DOSING Pt Demographics Demographics Patient Age:71 , Weight:99.790 , Gender: male Adjusted Body Weight Date: 07/02/16, Adjusted Body Weight: Kg Events Past 24 Hours Events Past 24 Hours: YES: Elevation in WBC, Fever, NO: Change in CrCl, Dialysis, Diuretic Therapy, Other, Pending Diagnostics, Pending Procedures Vancomycin Vancomycin indication: PNA Vancomycin Target Ranges: 15-20 mcg/ml Vancomycin Load Y/N: No Load Dose Date Time Vancomycin Load Dose: Date: Time: Vancomycin Dose Date: 07/02/16. Current Vancomycin Dose: [1gm IV q12h@10] Intermittent Dosing?: No Labs Labs Item Value Date Time White Blood Count 20.4 K/mm3 H 07/02/16 0302 Creatinine 1.21 MG/DL 07/02/16 0302 Vital Signs Label Value Date Time Patient Temperature 99.9 degrees F 07/02/16 1205 Temperature Source Tympanic 07/02/16 1205 Micro Microbiology 07/02/16 Blood Culture, Received Pending 07/02/16 Blood Culture, Received Pending 07/02/16 Gram Stain, Received Pending 07/02/16 Sputum Culture, Received Pending 07/02/16 Respiratory Virus Panel (PCR) ([facility]) - Final, Complete Creatinine Clearance Date:07/02/16. Creatinine Clearance: . Assessment and Plan Maintaining Current Dose?: Yes Reason for dose change: No Dose Change Pharmacist Note Pharmacist Note Date: 07/02/16. Pharmacist note: Patient was started on Vancomycin and Ceftriaxone for treatment of Pneumonia. The patient has never been on Vancomycin at our facility and has no history of MRSA here. The patient was started on Vancomycin 1gm IV q12h. He received his first dose in the Emergency Department around 10am. We will continue to monitor and make adjustments as necessary. [facility] Jul 02, 2016 14:56
[2016-07-02 16:00] VITALS: BP 149/77
[2016-07-02] MEDS: INDOMETHACIN 25 MG CAP PO PRN (16:22)
[2016-07-02] MEDS: cefTRIAXone SOD 1 GM in D5W MINI-BAG PLUS 50 ML IV SCH (18:54)
[2016-07-02 20:05] VITALS: BP 146/81
[2016-07-02] MEDS: amLODIPine 5 MG TAB PO SCH (20:51)
[2016-07-02] MEDS: VANCOMYCIN HCL 1,000 MG, VIAL MATE ADAPTER 1 EACH in D5W 250 ML IV SCH (21:35)
[2016-07-03] MEDS: ACETAMINOPHEN TAB 650MG DOSE (2X325MG) PO PRN ×2 (05:46→13:44)
[2016-07-03 05:56] LABS: MEAN CORPUSCULAR HEMOGLOBIN 30.5 pg (27.0-33.0); MEAN CORPUSCULAR HGB CONC 33.2 g/dl (32.0-36.5); MEAN CORPUSCULAR VOLUME 91.8 fl (80.0-96.0); PLATELET COUNT, AUTOMATED 290 k/mm3 (150-450); RED CELL DISTRIBUTION WIDTH 13.5 % (11.5-14.5); WHITE BLOOD COUNT 20.4 K/mm3 (4.0-10.0)
[2016-07-03 06:00] VITALS: BP 164/87
[2016-07-03] MEDS: cefTRIAXone SOD 1 GM in D5W MINI-BAG PLUS 50 ML IV SCH ×2 (06:01→18:38)
[2016-07-03 06:08] LABS: ANION GAP 9 MEQ/L (8-16); BLOOD UREA NITROGEN 13 MG/DL (7-18); CALCIUM LEVEL 8.8 MG/DL (8.8-10.2); CARBON DIOXIDE LEVEL 27 MEQ/L (21-32); CHLORIDE LEVEL 103 MEQ/L (98-107); CREATININE FOR GFR 0.96 MG/DL (0.70-1.30); GLOMERULAR FILTRATION RATE > 60.0 (>42); GLUCOSE, FASTING 98 MG/DL (83-110); POTASSIUM SERUM 4.2 MEQ/L (3.5-5.1); SODIUM LEVEL 139 MEQ/L (136-145)
[2016-07-03] MEDS: ALLOPURINOL 100 MG TAB PO SCH (08:47)
[2016-07-03] MEDS: ASPIRIN 81 MG ENTERIC TAB PO SCH (08:47)
[2016-07-03] MEDS: METAMUCIL (PSYLLIUM) PACKET PO SCH (08:47)
[2016-07-03] MEDS: ENOXAPARIN 40 MG/0.4 ML SYRINGE (J1650) SC SCH (08:47)
[2016-07-03] MEDS: ASCORBIC ACID 500 MG TAB PO SCH (08:47)
[2016-07-03] MEDS: OMEGA-3 1050MG CAPSULE PO SCH (08:48)
[2016-07-03] MEDS: guaiFENesin ER 600 MG TAB PO SCH ×2 (08:49→21:03)
[2016-07-03] MEDS: VANCOMYCIN HCL 1,000 MG, VIAL MATE ADAPTER 1 EACH in D5W 250 ML IV SCH ×2 (09:47→21:47)
--- NOTE | 2016-07-03 10:20 | IPNPDOC ---
Subjective General Date Seen The patient was seen on 07/03/16. Subjective Chief Complaint/HPI The patient is a 71-year-old male admitted with a reason for visit of Flu-Like Symptoms. Events since last encounter Seen and evaluated on 4PAV this AM. Reports that he is feeling slightly better, although still requiring O2. White count remains elevated despite receiving both vanco and rocephin. BCx pending. RVP neg. Diet relayed as fair. Constitutional: Reports: Chills, Fatigue, Fever, Malaise, Denies: Night Sweats Pulmonary: Reports: Cough, Other Symptoms (SOB), Denies: Pleuritic Chest Pain Cardiovascular: Denies: Chest Pain, Lt Headedness, Orthopnea, Palpitations, Paroxysmal Noc. Dyspnea Gastrointestinal: Denies: Abdominal Pain, Constipation, Diarrhea, Nausea, Vomiting Genitourinary: Denies: Dysuria, Frequency, Incontinence, Retention Hematologic: Denies: Bleeding Excessively, Bruising Musculoskeletal: Reports: Other Symptoms (joint pain - gout) Neurological: Denies: Change in speech, Confusion, Numbness, Weakness Objective Physical Examination General Exam: Positive: Alert, Cooperative, No Acute Distress ENT Exam: Positive: Atraumatic, Mucous membr. moist/pink Neck Exam: Negative: JVD Chest Exam: Positive: Normal air movement, Rhonchi, Negative: Rales Heart Exam: Positive: Normal S1, Normal S2, Rate Normal Abdomen Exam: Positive: Normal bowel sounds, Soft, Negative: Tenderness Extremity Exam: Negative: Swelling, Tenderness Skin Exam: Positive: Nl turgor and temperature, Negative: Rash Psych Exam: Positive: Other (Patient somewhat weepy, seems a bit depressed today. reveals that a friend recently from [place] cause by S.aureus.), Negative: Mood NL Assessment /Plan Problems Problems: (1) Admitted with pneumonia Status: Acute Problem Text: S/P treatment for influenza. Vanco and Rocephin to cover for possible CAP vs post-influenza (staph). RVP neg. White count remains elevated and still has o2 requirement. Will check urine legionella ag and initiate PO azithro. Accapella added for pulmonary toilet today. Encourage OOB. Consider repeat CXR in AM if persistent leukocytosis-- No other areas of focal infection to evaluate. On abx x 24h; utility of Ucx low. (2) Gout attack Status: Acute Problem Text: Allopurinol continued on admission. Indocin added TID for acute flare. (3) Hypertension Status: Chronic Response to Treatment: Stable Problem Text: Controlled. Continue Norvasc. (4) Hyperlipidemia Status: Chronic Problem Text: Fish oil per home regimen. Plan/VTE VTE Prophylaxis Ordered?: Yes Plan IVF: Continue Diet: Continue Current Activity: Encourage Ambulation Respiratory: Wean Oxygen Diagnostics: Repeat Labs in AM Anticipated Discharge: Home VS, I&O, 24H, Fishbone Vital Signs/I&O Vital Signs Date Time Temp Pulse Resp B/P Pulse Ox O2 Delivery O2 Flow Rate FiO2 07/03/16 06:34 100.2 07/03/16 06:00 84 21 164/87 94 07/02/16 20:30 Nasal Cannula 2.0 I&O- Last 24 Hours up to 6 AM 07/03/16 06:00 Intake Total 710 ml Output Total 1800 ml Balance -1090 ml Laboratory Data 24H LABS Laboratory Tests 2 07/03/16 05:19: Anion Gap 9, Blood Urea Nitrogen 13, Creatinine 0.96, Sodium Level 139, Potassium Level 4.2, Chloride Level 103, Carbon Dioxide Level 27, Calcium Level 8.8, Glomerular Filtration Rate > 60.0 CBC/BMP Laboratory Tests 07/03/16 05:19 Calcium Level 8.8, Red Blood Count 3.79 L, Mean Corpuscular Volume 91.8, Mean Corpuscular Hemoglobin 30.5, Mean Corpuscular Hemoglobin Concent 33.2, Red Cell Distribution Width 13.5 Microbiology Microbiology 07/02/16 Blood Culture - Preliminary, Resulted No growth after 24 hours . All specim... 07/02/16 Blood Culture - Preliminary, Resulted No growth after 24 hours . All specim... 07/02/16 Gram Stain - Final, Resulted 07/02/16 Sputum Culture, Resulted Pending 07/02/16 Respiratory Virus Panel (PCR) ([facility]) - Final, Complete GME ATTESTATION GME ATTESTATION My preceptor for this patient encounter was physically present in the building during the encounter and was fully available. As needed, all aspects of the patient interview, examination, medical decision making process, and medical care plan development were reviewed and approved by the preceptor. Preceptor is aware and concurs with the plan as stated in the body of this note and will attest to such by his/her cosignature. ATTENDING NOTE Patient seen and examined. Agree with plan and findings by MARRY Phan DO Jul 03, 2016 10:20 Anoop Gonzáles MD Jul 03, 2016 15:01
[2016-07-03] MEDS: AZITHROMYCIN 250 MG TAB PO SCH (10:29)
[2016-07-03 10:39] LABS: BASO % 0.1 % (0.0-1.0); EOS # 0.1 K/mm3 (0.0-0.50); EOS % 0.5 % (0.0-3.0); LARGE UNSTAINED CELL # 0.3 K/mm3 (0.0-0.4); LARGE UNSTAINED CELL % 1.6 % (0.0-4.0); LYMPH # 1.4 K/mm3 (1.5-4.5); LYMPH % 6.8 % (24.0-44.0); MONO # 1.1 K/mm3 (0.0-0.8); MONO % 5.1 % (0.0-5.0); NEUTROPHILS % 85.9 % (36.0-66.0)
[2016-07-03 10:42] LABS: DIFF SLIDE NUMBER 61
[2016-07-03] MEDS: INDOMETHACIN 25 MG CAP PO PRN ×2 (13:44→21:06)
[2016-07-03 14:00] VITALS: BP 129/83
[2016-07-03 20:35] VITALS: BP 136/81
[2016-07-03] MEDS: amLODIPine 5 MG TAB PO SCH (21:03)
--- NOTE | 2016-07-03 22:02 | PHACANCOPD ---
PHARMACY VANCOMYCIN DOSING Pt Demographics Demographics Patient Age:71 , Weight:99.790 , Gender: male Adjusted Body Weight Date: 07/03/16, Adjusted Body Weight: [80] Kg Events Past 24 Hours Events Past 24 Hours: NO: Change in CrCl, Dialysis, Diuretic Therapy, Elevation in WBC, Fever, Other, Pending Diagnostics, Pending Procedures Vancomycin Vancomycin indication: PNA Vancomycin Target Ranges: 15-20 mcg/ml Vancomycin Load Y/N: Yes Load Dose Date Time Vancomycin Load Dose: 1.5GM Date: 07/03/16 Time: 22:00 Vancomycin Dose Date: 07/04/16. CONTINUE Current Vancomycin Dose: [1gm IV q12h@10:00 07/04/16] Intermittent Dosing?: No Labs Labs Laboratory Tests Test 07/03/16 20:56 Vancomycin Level Trough 9.7UG/ML (10.0-20.0) Laboratory Tests 07/03/16 05:19 Calcium Level 8.8, Red Blood Count 3.79, Mean Corpuscular Volume 91.8, Mean Corpuscular Hemoglobin 30.5, Mean Corpuscular Hemoglobin Concent 33.2, Red Cell Distribution Width 13.5 Micro Microbiology 07/03/16 Blood Culture, Received Pending 07/03/16 Blood Culture, Received Pending 07/02/16 Blood Culture - Preliminary, Resulted No growth after 24 hours . All specim... 07/02/16 Blood Culture - Preliminary, Resulted 07/02/16 Sputum Culture - Preliminary, Resulted Streptococcus Pyogenes Grp A Creatinine Clearance Date:07/04/16. Creatinine Clearance: [<70 ml/min]. Assessment and Plan Maintaining Current Dose?: No Reason for dose change: Trough too low Pharmacist Note Pharmacist Note Date: 07/03/16. Pharm.D. note: 71YO MALE, 68" in HEIGHT, 99.79KG in WEIGHT, ADMITTED WITH PNEUMONIA. C&S REMAINS PENDING FOR BLOOD SAMPLE 3 & 4; SAMPLES 1 & 2 ARE NOS. SPUTUM IS POSITIVE GrpA STREP PYRO (SENSITIVITIES ARE PENDING). HE IS ON VANCO 1GM IV Q12H (10AM/10PM) AND ROCEPHIN 1GM IV Q12H (7AM/7PM). A VANCO TROUGH DRAWN TONIGHT = 9.7 mcg/ml (Goal 15-20 mcg/ml). OF NOTE, HE HAD NO LOADING DOSE. WE WILL LOAD HIM WITH 1500MG VANCO AT 2:00 THIS EVENING AND KEEP HIM ON HIS CURRENT VANCO DOSE 1GM IV Q12H (10:00, 22:00) A REPEAT VANCO TROUGH WILL BE DRAWN WHEN HE IS AT STEADY STATE. VALENCIA, Pharm.D. [facility] Jul 03, 2016 22:02
[2016-07-03] MEDS ORDERED: VANCOMYCIN HCL 500 MG in D5W MINI-BAG PLUS 100 ML IV ONE (23:00)
[2016-07-04 05:50] VITALS: BP 153/83
[2016-07-04] MEDS: cefTRIAXone SOD 1 GM in D5W MINI-BAG PLUS 50 ML IV SCH ×2 (06:21→18:00)
[2016-07-04 07:11] LABS: MEAN CORPUSCULAR VOLUME 93.9 fl (80.0-96.0); RED CELL DISTRIBUTION WIDTH 13.1 % (11.5-14.5); WHITE BLOOD COUNT 25.7 K/mm3 (4.0-10.0)
[2016-07-04 07:34] LABS: ANION GAP 9 MEQ/L (8-16); BLOOD UREA NITROGEN 19 MG/DL (7-18); CALCIUM LEVEL 9.5 MG/DL (8.8-10.2); CARBON DIOXIDE LEVEL 28 MEQ/L (21-32); CHLORIDE LEVEL 103 MEQ/L (98-107); GLOMERULAR FILTRATION RATE > 60.0 (>42); GLUCOSE, FASTING 83 MG/DL (83-110); POTASSIUM SERUM 4.4 MEQ/L (3.5-5.1); SODIUM LEVEL 140 MEQ/L (136-145)
[2016-07-04] MEDS: METAMUCIL (PSYLLIUM) PACKET PO SCH (09:00)
[2016-07-04] MEDS: INDOMETHACIN 25 MG CAP PO PRN ×3 (09:22→20:57)
[2016-07-04] MEDS: ALLOPURINOL 100 MG TAB PO SCH (09:22)
[2016-07-04] MEDS: guaiFENesin ER 600 MG TAB PO SCH ×2 (09:22→20:50)
[2016-07-04] MEDS: OMEGA-3 1050MG CAPSULE PO SCH (09:22)
[2016-07-04] MEDS: ASCORBIC ACID 500 MG TAB PO SCH (09:23)
[2016-07-04] MEDS: ENOXAPARIN 40 MG/0.4 ML SYRINGE (J1650) SC SCH (09:23)
[2016-07-04] MEDS: VANCOMYCIN HCL 1,000 MG, VIAL MATE ADAPTER 1 EACH in D5W 250 ML IV SCH (09:23)
[2016-07-04] MEDS: ASPIRIN 81 MG ENTERIC TAB PO SCH (09:23)
[2016-07-04] MEDS: AZITHROMYCIN 250 MG TAB PO SCH (09:23)
--- NOTE | 2016-07-04 09:28 | REP ---
Chest AP and lateral views, patient sitting: Comparison is 07/02/2016. The previous right suprahilar infiltrate has significantly decreased. There are no pleural effusions. This is unchanged. Remainder the lung ward are clear. Cardiac size is normal. The kelle, mediastinum, and bony thorax are unremarkable. Signed by Darren Gil MD 07/04/2016 09:19 A
--- NOTE | 2016-07-04 11:14 | IPNPDOC ---
Subjective General Date Seen The patient was seen on 07/04/16. Subjective Chief Complaint/HPI The patient is a 71-year-old male admitted with a reason for visit of Flu-Like Symptoms. Events since last encounter + group A strep pyogenes on sputum cx. Having difficulty getting OOB due to knee pain and swelling. + pain and swelling in right foot 1st and 2nd DIP. Constitutional: Reports: Fever, Denies: Chills ENT: Reports: Sore Throat, Denies: Dysphagia, Ear Pain, Head Aches Skin: Reports: Rash (erythema to right knee and foot), Denies: Breakdown, Lesions Pulmonary: Denies: Cough, Dyspnea, Other Symptoms, Pleuritic Chest Pain Cardiovascular: Denies: Chest Pain, Lt Headedness, Orthopnea, Palpitations, Paroxysmal Noc. Dyspnea Gastrointestinal: Denies: Abdominal Pain, Constipation, Diarrhea, Nausea, Vomiting Genitourinary: Denies: Dysuria, Frequency, Incontinence, Retention Musculoskeletal: Reports: Other Symptoms (right knee and foot pain with swelling, erythema and warmth) Psych: Reports: Mood Normal, Denies: Depression, Memory Issues Objective Physical Examination General Exam: Positive: Alert, Cooperative, No Acute Distress ENT Exam: Positive: Atraumatic, Mucous membr. moist/pink Neck Exam: Negative: JVD Chest Exam: Positive: Normal air movement, Rhonchi, Negative: Rales Heart Exam: Positive: Normal S1, Normal S2, Rate Normal Abdomen Exam: Positive: Normal bowel sounds, Soft, Negative: Tenderness Extremity Exam: Positive: Swelling (right knee with fluid collection to anterior right knee, right foot swelling to 2nd metatrsal phalange joints), Negative: Tenderness Skin Exam: Positive: Nl turgor and temperature, Negative: Rash Psych Exam: Positive: Other (Patient somewhat weepy, seems a bit depressed today. reveals that a friend recently from [place] cause by S.aureus.), Negative: Mood NL Assessment /Plan Problems Problems: (1) Admitted with pneumonia Status: Acute Problem Text: 07/04/2016: + group A strep in sputum. Rocephin 1 gram IV q 12. STOPPED Azithromycin and Vancomycin. ID consulted. S/P treatment for influenza. Vanco and Rocephin to cover for possible CAP vs post-influenza (staph). RVP neg. White count remains elevated and still has o2 requirement. Will check urine legionella ag and initiate PO azithro. Accapella added for pulmonary toilet today. Encourage OOB. Consider repeat CXR in AM if persistent leukocytosis-- No other areas of focal infection to evaluate. On abx x 24h; utility of Ucx low. (2) Gout attack Status: Acute Problem Text: 07/04/2016: in presence of fever, swelling and increased pain: Ortho consulted to consider Aspiration of fluid in knee. Ortho (Dr. Phna Mehta.. ) recommends ask IR to aspirate and review results with him when available. Allopurinol continued on admission. Indocin added TID for acute flare. (3) Hypertension Status: Chronic Response to Treatment: Stable Problem Text: Controlled. Continue Norvasc. (4) Hyperlipidemia Status: Chronic Response to Treatment: Stable Problem Text: Fish oil per home regimen. Plan/VTE VTE Prophylaxis Ordered?: Yes Plan IVF: Continue Diet: Continue Current Activity: Encourage Ambulation Respiratory: Wean Oxygen Diagnostics: Repeat Labs in AM Anticipated Discharge: Home VS, I&O, 24H, [facility] Vital Signs/I&O Vital Signs Date Time Temp Pulse Resp B/P Pulse Ox O2 Delivery O2 Flow Rate FiO2 07/04/16 05:50 97.5 79 19 153/83 97 Nasal Cannula 2.0 I&O- Last 24 Hours up to 6 AM 07/04/16 06:00 Intake Total 680 ml Output Total 1000 ml Balance -320 ml Laboratory Data 24H LABS Laboratory Tests 2 07/03/16 20:36: Urine Amorphous Sediment SMALLH, Urine Appearance HAZY, Urine Color YELLOW, Urine pH 5.0, Urine Specific [place] 1.016, Urine Protein 1+H, Urine Glucose (UA ) NEGATIVE, Urine Ketones TRACEH, Urine Urobilinogen 0.2, Urine Bilirubin NEGATIVE, Urine Leukocyte Esterase NEGATIVE, Urine Bacteria (Auto) 1+H, Urine Blood 1+H, Urine Calcium Carbonate Cryst(Auto) , Urine Calcium Oxalate Cryst ( Auto) , Urine Calcium Phosphate Dinah (Auto) , Urine Cellular Casts , Urine Cystine Crystals , Urine Granular Casts (Auto) , Urine Hyaline Casts (Auto) 0, Urine Leucine Crystals , Urine Mucus (Auto) SMALL, Urine Nitrite NEGATIVE, Urine Oval Fat Bodies (Auto) , Urine RBC (Auto) 70H, Urine Renal Epithelial Cells , Urine Sperm (Auto) , Urine Squamous Epithelial Cells 0, Urine Transitional Epithelial Cells , Urine Trichomonas (Auto) , Urine Triple Phosphate Cryst (Auto) , Urine Tyrosine Crystals , Urine Uric Acid Crystals ( Auto) , Urine WBC (Auto) 12H, Urine Waxy Casts (Auto) , Urine Yeast-Like Cells ( Auto) 07/03/16 20:37: 07/03/16 20:56: Vancomycin Level Trough 9.7L 07/04/16 06:07: Anion Gap 9, Blood Urea Nitrogen 19H, Creatinine 1.10, Sodium Level 140, Potassium Level 4.4, Chloride Level 103, Carbon Dioxide Level 28, Calcium Level 9.5, Glomerular Filtration Rate > 60.0 CBC/BMP Laboratory Tests 07/04/16 06:07 Calcium Level 9.5, Red Blood Count 4.63, Mean Corpuscular Volume 93.9, Mean Corpuscular Hemoglobin 30.0, Mean Corpuscular Hemoglobin Concent 32.0, Red Cell Distribution Width 13.1 Microbiology Microbiology 07/03/16 Blood Culture, Received Pending 07/03/16 Blood Culture, Received Pending 07/02/16 Blood Culture - Preliminary, Resulted No Growth after 48 hours. All Specime... 07/02/16 Blood Culture - Preliminary, Resulted 07/02/16 Gram Stain - Final, Resulted 07/02/16 Sputum Culture - Preliminary, Resulted Streptococcus Pyogenes Grp A 07/02/16 Respiratory Virus Panel (PCR) (MARTELL) - Final, Complete Attending Note Attending Note Patient seen and examined; agree with findings and plan as outlined and amended. Agata Lozada Jul 04, 2016 11:14 Anoop Gonzáles MD Jul 04, 2016 11:46
--- NOTE | 2016-07-04 12:59 | EDDOCDS ---
Physician Documentation [facility] Name: Angel Jay Age: 71 yrs Sex: Male : 1945 Arrival Date: 07/02/2016 Time: 02:14 Bed Admit Hold Private MD: Disposition: 07/02 06:12 Critical Care: Critical care not applicable. pc Disposition: 07/02/16 06:20 Hospitalization ordered by Juvencio Orellana for Inpatient Admission. Preliminary diagnosis are Bronchopneumonia, unspecified organism - RUL, Hypoxemia. - Bed requested for M PED. - Status is Inpatient Admission. aa3 - Condition is Stable. - Problem is new. - Symptoms have improved. HPI: 02:53 This 71 yrs old Male presents to ER via Wheelchair with complaints of Flu pc Symptoms. 02:53 The history is obtained from the patient, the patient's spouse. He had URI symptoms for pc 2-3 days before presenting on June 24, at which time he was diagnosed with Influenza A. He was given antivirals without much effect, as he has had chills, low grade fevers and myalgias since. He was seen by his PCP 2 days ago and given Mucinex. He had a temp of 101 earlier today that is 99.7 in the ED. He has a non-productive cough. He has no other new complaints. Historical: - Allergies: No known drug Allergies; - Home Meds: 1. allopurinol 100 mg Oral tab 2 tabs once daily 2. amlodipine 5 mg Oral tab 1 tab once daily 3. aspirin 81 mg Oral chew 1 tab once daily 4. indomethacin 25 mg Oral cap 1 cap as needed for gout flare up 5. lisinopril 20 mg Oral tab 1 tab bid - PMHx: Gout; Hypertension; - PSHx: eye surgery - right eye removed; - The history from nurses notes was reviewed: and I agree with what is documented. - Social history: Smoking status: Patient states was never smoker of tobacco. No barriers to communication noted, The patient speaks fluent Frisian, Speaks appropriately for age. - Family history: Not pertinent. - : The pt / caregiver states he / she is not on anticoagulants. Home medication list is obtained from the patient. - Hospitalizations: : No recent hospitalization is reported. - Exposure Risk Screening:: None identified. . - Immunization history:: All immunizations up-to-date. - Social history:: the patient is a non-smoker, the patient does not drink alcohol. ROS: 02:53 All systems are negative except as listed. pc Exam: 02:53 General Appearance: no acute distress, alert. pc 02:53 EENT: normal eye inspection, ears, nose and throat normal, pharynx normal, mucous membranes moist 02:53 Neck: The exam reveals no acute abnormalities. ROM is normal and painless. No nuchal rigidity is noted.. 02:53 Respiratory: no respiratory distress, normal breath sounds. 02:53 CVS: regular pulse rate, regular rhythm, normal S1 and S2, no murmurs, strong peripheral pulses. 02:53 Abdomen: soft, non-tender, no organomegaly, normal bowel sounds. 02:53 Back: sebaceous cyst on back, without erythema or pain on palpation. 02:53 : bladder is non-distended, non-tender. 02:53 Skin: skin color is normal, warm, dry. 02:53 Extremities: The extremities have a grossly normal appearance, are non-tender, without acute ROM abnormalities. 02:53 Neuro: oriented x 3, cranial nerves normal as tested, no motor deficits, no sensory deficits, normal gait. Vital Signs: 02:22 BP 122 / 78; Pulse 107; Resp 22; Temp 99.7(TE); Pulse Ox 92% on R/A; Weight 99.79 kg / nn1 220 lbs; Height 5 ft. 8 in. (172.72 cm) (R); Pain 5/10; 04:22 BP 152 / 82; Pulse 84; Resp 22; Temp 101.2(O); Pulse Ox 93% on R/A; Pain 3/10; tm5 05:27 BP 141 / 76; Pulse 79; Resp 18; Temp 100.1(O); Pulse Ox 94% ; Pain 0/10; tm5 05:27 BP 141 / 76; Pulse 79; Resp 18; Temp 100.1(O); Pulse Ox 94% on R/A; Pain 0/10; tm5 05:53 BP 132 / 81 (auto/); tm5 05:53 Pulse 76 MON; Resp 20 S; Pulse Ox 93% on R/A; Pain 0/10; tm5 06:23 BP 151 / 73 (auto/); tm5 06:23 Pulse 72 MON; Resp 20 S; Temp 99.9(O); Pulse Ox 93% on 2 lpm NC; Pain 0/10; tm5 07:23 BP 142 / 77 (auto/); kc3 07:23 Pulse 72 MON; Pulse Ox 95% ; kc3 07:40 Temp 98.5(O); kc3 07:40 Temp 98.5(O); kc3 02:22 Body Mass Index 33.45 (99.79 kg, 172.72 cm) nn1 MDM: 02:53 Chest, 2 View (pa\E\lat) Ordered. EDMS 02:53 CBC with Diff Ordered. EDMS 02:53 MED Profile Ordered. EDMS 02:53 Differential Diagnosis: recent Influenza infection with continued cough, myalgias, low pc grade fevers. Plan: CXR, labs, advice. 03:14 CBC with Diff Reviewed. pc 03:17 CT Chest Without Contrast Ordered. EDMS 03:33 MED Profile Reviewed. pc 04:00 Financial registration complete. hs2 04:03 [facility] Payment Agreement was scanned into [employer] and attached to record. hs2 04:05 CT Chest Without Contrast Reviewed. pc 04:21 Data reviewed: old medical records, vital signs, nurses notes, lab test results, all pc radiology studies and available results. Test interpretation: LAB - all labs as ordered have been reviewed, interpreted and considered in the overall management of the clinical presentation; X-RAY - interpreted by me, 2 view chest, ?RUL infiltrate interpreted by Radiologist and personally reviewed, Chest CT; RUL ground glass opacities, bibasilar atelectasis, thickened gallbladder wall. 04:24 Call Respiratory ordered. pc 04:24 Acetaminophen Tablet 650 mg PO once ordered. pc 04:25 Call Respiratory complete. mdr 04:25 -Arterial Blood Gas Ordered. EDMS 05:04 -Arterial Blood Gas Reviewed. pc 05:07 IV Saline Lock ordered. pc 05:07 -Blood Culture (Adults Only), peripheral from different site, or from device/port/PICC pc etc. if present ordered. 05:08 Lactic Acid (Pruitt tube on ice) Ordered. EDMS 05:08 -Blood Culture Ordered. EDMS 05:10 -Blood Culture (Adults Only), peripheral from different site, or from device/port/PICC mdr etc. if present complete. 05:11 BLOOD CULTURES Ordered. EDMS 06:05 Lactic Acid (Pruitt tube on ice) Reviewed. pc 06:12 The patient has been re-examined and re-evaluated. The patient's symptoms have mildly pc improved after treatment. Physician consultation: Dr. Juvencio Orellana was contacted at 06:13, regarding admission, and will see patient in ED, shortly. 06:12 ED course: His CURB-65 was only 1 or low risk but his PORT/PSI score was 80. Given his pc general weakness, continued fevers and leukocytosis, observation admission is reasonable. Disposition: The historical points, examination findings, and any diagnostic results supporting the provided diagnosis, were discussed with the patient or legal guardian. The need for further work-up and/or treatment in the hospital was explained. 06:15 cefTRIAXone 1 grams IVPB once over 30 mins; dilute in 50mL of NS or D5W ordered. pc 06:15 azithromycin 500 mg IVPB once over 1 hrs; dilute in 250mL of D5W or NS ordered. pc 06:15 Misc Resistance Welding Machine Operator Order ordered. pc 06:16 BED REQUEST+ADM ordered. EDMS 06:18 Misc Resistance Welding Machine Operator Order complete. mdr 06:18 RESPIRATORY PANEL Ordered. EDMS 07:13 Admission / Observation Status ordered. EDMS 07:13 2 GRAM SODIUM DIET ordered. EDMS 07:13 URINALYSIS Ordered. EDMS 08:03 SPUTUM CULTURE AND GRAM STAIN Ordered. EDMS 02/09 11:15 Radiology Report was scanned into [employer] and attached to record. gb Administered Medications: 07/02 04:27 Drug: Acetaminophen 650 mg [acetaminophen 325 mg tablet (2 tabs)] Route: PO; tm5 05:27 Follow up: BP 141 / 76; Pulse 79 bpm; Resp 18 bpm; Temp 100.1 Oral; Pulse Ox 94% RA; tm5 Pain 0/10 Adult; Response: No Adverse Reaction; Temperature is decreased 07:40 Follow up: Temp 98.5 Oral kc3 06:32 Drug: cefTRIAXone 1 grams [ceftriaxone 1 gram solution for injection] {Note: given IVPB tm5 in 100CC D5 over 30 minutes.} Route: IVPB; Infused Over: 30 mins; Site: right hand; 06:56 Follow up: IV Status: Completed infusion; IV Intake: 100ml tm5 06:57 Follow up: Response: No Adverse Reaction tm5 07:03 Follow up: IV Status: Completed infusion kc3 07:18 Drug: azithromycin 500 mg [azithromycin 500 mg intravenous solution] Route: IVPB; kc3 Infused Over: 1 hrs; Site: right hand; Signatures: Dispatcher [employer] EDDiego Palma MD MD pc Jobson, Karen, RN RN kpj Michelle Chambers, Reg Reg gb Tiffanie Parker RN RN aa3 Juanjose Vela RN RN nn1 Mitch Kaur, CLINICAL TRAINER CLINICAL TRAINER Rima Clemens, Reg Reg hs2 Gali Pimentel RN RN tm5 Cassi Alvarado RN kc3 The chart was reviewed and I authenticate all verbal orders and agree with the evaluation and treatment provided.Corrections: (The following items were deleted from the chart) 07:25 07:13 RESPIRATORY PANEL ordered. EDMS EDMS 07: 07:14 BLOOD CULTURES ordered. EDMS EDMS Attachments: 04:03 [facility] Payment Agreement hs2 Chart Complete MTDD
--- NOTE | 2016-07-04 12:59 | EDDOCDS ---
Nurse's Notes [facility] Name: Angel Jay Age: 71 yrs Sex: Male : 1945 Arrival Date: 07/02/2016 Time: 02:14 Bed Admit Hold Private MD: Diagnosis: Bronchopneumonia, unspecified organism-RUL;Hypoxemia Presentation: 07/02 02:18 Presenting complaint: states: patient diagnosed with flu a week ago Thursday. nn1 reports patient is not better. Patient reports he is shaky, body aches, congestion. Denies SOB. States patient is finished with Tamiflu prescription. Adult Sepsis Screening: The patient does not have new or worsening altered mentation. Patient's respiratory rate is less than 22. Systolic blood pressure is greater than 100. Patient has a qSOFA score of 0- Negative Sepsis Screen. Suicide/Homicide risk assessment- the patient denies having any suicidal and/or homicidal ideations and does not present with any other emotional, behavioral or mental health complaints. Status: Patient is not a branch service associate or dependent. Transition of care: patient was not received from another setting of care. 02:18 Acuity: ROXANNE Level 3 nn1 02:18 Method Of Arrival: Wheelchair nn1 Triage Assessment: 02:25 General: Appears ill, Behavior is appropriate for age, cooperative. Pain: Location: nn1 body aches Pain currently is 5 out of 10 on a pain scale. Pain began 1-2 days symptoms began to worsen. The patient is triaged at the bedside. See Assessment in Nurses Notes section of ED record. Neurological: Level of Consciousness is awake, alert, obeys commands. Respiratory: Airway is patent Respiratory effort is even, Respiratory pattern is regular, Reports Congestion, coughing up yellow phlegm. Derm: Skin is pink, warm & dry. Historical: - Allergies: No known drug Allergies; - Home Meds: 1. allopurinol 100 mg Oral tab 2 tabs once daily 2. amlodipine 5 mg Oral tab 1 tab once daily 3. aspirin 81 mg Oral chew 1 tab once daily 4. indomethacin 25 mg Oral cap 1 cap as needed for gout flare up 5. lisinopril 20 mg Oral tab 1 tab bid - PMHx: Gout; Hypertension; - PSHx: eye surgery - right eye removed; - The history from nurses notes was reviewed: and I agree with what is documented. - Social history: Smoking status: Patient states was never smoker of tobacco. No barriers to communication noted, The patient speaks fluent Malay, Speaks appropriately for age. - Family history: Not pertinent. - : The pt / caregiver states he / she is not on anticoagulants. Home medication list is obtained from the patient. - Hospitalizations: : No recent hospitalization is reported. - Exposure Risk Screening:: None identified. . - Immunization history:: All immunizations up-to-date. - Social history:: the patient is a non-smoker, the patient does not drink alcohol. Screenin:48 Screening information is obtained from the patient. Fall risk: No risks identified. tm5 Assistance ADL's: requires no assistance with activities of daily living. Abuse/DV Screen: The patient / caregiver reports he/she is: not in a situation that causes fear, pain or injury. Nutritional screening: No deficits noted. Advance Directives: Currently, there is a health care proxy, . home support is adequate. Assessment: 02:48 General: Appears ill, Behavior is appropriate for age, cooperative. Pain: Location: tm5 "achy all over" per pt Pain currently is 6 out of 10 on a pain scale. Quality of pain is described as aching. Neurological: Level of Consciousness is awake, alert, Oriented to person, place, time. Respiratory: Airway is patent Respiratory effort is even, unlabored, Respiratory pattern is regular, symmetrical. GI: No deficits noted. : No deficits noted. Derm: Skin is pink, warm & dry. 03:04 Respiratory: Breath sounds are clear bilaterally. tm5 04:28 Reassessment: Patient appears in no apparent distress at this time. pt had to be tm5 awakened for vital signs, pt states that he is still feeling achy at this time . 05:27 Reassessment: Patient appears in no apparent distress at this time. Patient states tm5 feeling better. Patient states symptoms have improved. 07:23 General: Appears in no apparent distress, comfortable, Behavior is appropriate for age, kc3 cooperative. Pain: Location: body aches Pain currently is 5 out of 10 on a pain scale. Neurological: Level of Consciousness is awake, Oriented to person, place, time. Respiratory: Airway is patent Respiratory effort is even, unlabored, Respiratory pattern is regular, symmetrical, Breath sounds are clear bilaterally. Derm: Skin is pink, warm & dry. Musculoskeletal: Circulation, motion, and sensation intact. 08:08 General: Appears in no apparent distress, comfortable, Pt up to side of bed. Diet tray kc3 given. No complaints at this time. Respirations even and unlabored. Pt remains on O2 at 2lpm. Will continue to monitor. . 09:00 General: Care taken over by ED Caicedo nurse. All charting will continue in [facility].. aa3 Vital Signs: 02:22 BP 122 / 78; Pulse 107; Resp 22; Temp 99.7(TE); Pulse Ox 92% on R/A; Weight 99.79 kg; nn1 Height 5 ft. 8 in. (172.72 cm) (R); Pain 5/10; 04:22 BP 152 / 82; Pulse 84; Resp 22; Temp 101.2(O); Pulse Ox 93% on R/A; Pain 3/10; tm5 05:27 BP 141 / 76; Pulse 79; Resp 18; Temp 100.1(O); Pulse Ox 94% ; Pain 0/10; tm5 05:27 BP 141 / 76; Pulse 79; Resp 18; Temp 100.1(O); Pulse Ox 94% on R/A; Pain 0/10; tm5 05:53 BP 132 / 81 (auto/); tm5 05:53 Pulse 76 MON; Resp 20 S; Pulse Ox 93% on R/A; Pain 0/10; tm5 06:23 BP 151 / 73 (auto/); tm5 06:23 Pulse 72 MON; Resp 20 S; Temp 99.9(O); Pulse Ox 93% on 2 lpm NC; Pain 0/10; tm5 07:23 BP 142 / 77 (auto/); kc3 07:23 Pulse 72 MON; Pulse Ox 95% ; kc3 07:40 Temp 98.5(O); kc3 07:40 Temp 98.5(O); kc3 02:22 Body Mass Index 33.45 (99.79 kg, 172.72 cm) nn1 Vitals: 02:22 Log In Time: July 02, 2016 at 02:14. nn1 ED Course: 02:15 Patient visited by Diony Norman, Reg. pm4 02:15 Patient moved to Waiting pm4 02:20 Triage Initiated nn1 02:34 Patient moved to 11 tm5 02:44 Diego Matias MD is Attending Physician. pc 02:48 Awaiting ED physician evaluation. tm5 02:48 The patient / caregiver is instructed regarding the plan of care and ED course. Family tm5 accompanied patient. 02:50 Patient visited by Diego Matias MD. pc 02:57 Patient moved to Radiology garcia 03:04 Patient moved to radiology. tm5 03:04 MED Profile Sent. tm5 03:04 CBC with Diff Sent. tm5 03:04 Labs drawn. (by ED staff). Sent per order to lab. tm5 03:09 Patient visited by Gali Pimentel RN. tm5 03:09 Patient moved back from radiology. tm5 03:12 Patient moved to 11 garcia 03:26 Patient moved back [address]. tm5 04:03 [facility] [place] into [employer] and attached to record. hs2 04:03 CT Chest Without Contrast Returned. EDMS 04:11 Patient visited by Diego Matias MD. pc 04:22 Patient visited by Gali Pimentel RN. tm5 04:55 -Arterial Blood Gas Sent. lf2 05:26 Patient visited by Gali Pimentel RN. tm5 05:26 BLOOD CULTURES Sent. tm5 05:26 -Blood Culture Sent. tm5 05:27 Lactic Acid (Pruitt tube on ice) Sent. tm5 05:27 Inserted saline lock: 20 gauge in right hand and blood collected. The patient tolerated tm5 the procedure well. Labs/Blood culture drawn. 05:56 Patient visited by Gali Pimentel RN. tm5 05:56 Gali Pimentel RN is Primary Nurse. tm5 05:56 Patient visited by Gali Pimentel RN. tm5 06:20 Juvencio Orellana is Hospitalizing Provider. pc 06:20 Patient visited by Gali Pimentel RN. tm5 06:20 O2 via nasal cannula pt placed on 02 \\T\\ 2L NC per MD's request. tm5 06:58 Patient visited by Gali Pimentel RN. tm5 06:59 Report given to Cassi Alvarado RN. tm5 07:00 Primary Nurse role handed off by Gali Pimentel RN tm5 07:18 URINALYSIS Sent. kc3 07:23 Cassi Alvarado RN is Primary Nurse. kc3 07:23 Patient moved to Admit Hold kpj 09:03 Chest, 2 View (pa\\E\\lat) Returned. EDMS 09:29 Patient moved to 21 kc3 10:14 Patient visited by Tiffanie Parker,MONICA. aa3 11:14 Patient moved to Admit Hold kpj 11:40 No procedures done that require assistance. aa3 02 11:15 Radiology Report was scanned into [employer] and attached to record. gb Administered Medications: 07/02 04:27 Drug: Acetaminophen 650 mg [acetaminophen 325 mg tablet (2 tabs)] Route: PO; tm5 05:27 Follow up: BP 141 / 76; Pulse 79 bpm; Resp 18 bpm; Temp 100.1 Oral; Pulse Ox 94% RA; tm5 Pain 0/10 Adult; Response: No Adverse Reaction; Temperature is decreased 07:40 Follow up: Temp 98.5 Oral kc3 06:32 Drug: cefTRIAXone 1 grams [ceftriaxone 1 gram solution for injection] {Note: given IVPB tm5 in 100CC D5 over 30 minutes.} Route: IVPB; Infused Over: 30 mins; Site: right hand; 06:56 Follow up: IV Status: Completed infusion; IV Intake: 100ml tm5 06:57 Follow up: Response: No Adverse Reaction tm5 07:03 Follow up: IV Status: Completed infusion kc3 07:18 Drug: azithromycin 500 mg [azithromycin 500 mg intravenous solution] Route: IVPB; kc3 Infused Over: 1 hrs; Site: right hand; Intake: 06:56 IV: 100.00ml; Total: 100.00ml. tm5 RT: 04:55 ABG's drawn from left radial artery allens test done and positive pressure held for 5 lf2 minutes pressure bandage applied specimen sent pt. tolerated well. Oxygen is room air. Order Results: Lab Order: CBC with Diff; SPEC'M 07/02/16 03:02 Test: WHITE BLOOD COUNT; Value: 20.4; Range: 4.0-10.0; Abnormal: Above high normal; Units: K/mm3; Status: F Test: RED BLOOD COUNT; Value: 4.36; Range: 4.30-6.10; Units: M/mm3; Status: F Test: HEMOGLOBIN; Value: 13.0; Range: 14.0-18.0; Abnormal: Below low normal; Units: g/dl; Status: F Test: HEMATOCRIT; Value: 39.9; Range: 42.0-52.0; Abnormal: Below low normal; Units: %; Status: F Test: MEAN CORPUSCULAR VOLUME; Value: 91.4; Range: 80.0-96.0; Units: fl; Status: F Test: MEAN CORPUSCULAR HEMOGLOBIN; Value: 29.7; Range: 27.0-33.0; Units: pg; Status: F Test: MEAN CORPUSCULAR HGB CONC; Value: 32.5; Range: 32.0-36.5; Units: g/dl; Status: F Test: RED CELL DISTRIBUTION WIDTH; Value: 13.3; Range: 11.5-14.5; Units: %; Status: F Test: PLATELET COUNT, AUTOMATED; Value: 306; Range: 150-450; Units: k/mm3; Status: F Test: NEUTROPHILS %; Value: 84.3; Range: 36.0-66.0; Abnormal: Above high normal; Units: %; Status: F Test: LYMPH %; Value: 9.3; Range: 24.0-44.0; Abnormal: Below low normal; Units: %; Status: F Test: MONO %; Value: 3.6; Range: 0.0-5.0; Units: %; Status: F Test: EOS %; Value: 0.8; Range: 0.0-3.0; Units: %; Status: F Test: BASO %; Value: 0.3; Range: 0.0-1.0; Units: %; Status: F Test: LARGE UNSTAINED CELL %; Value: 1.7; Range: 0.0-4.0; Units: %; Status: F Test: NEUTROPHILS #; Value: 17.2; Range: 1.8-7.7; Abnormal: Above high normal; Units: K/mm3; Status: F Test: LYMPH #; Value: 1.9; Range: 1.5-4.5; Units: K/mm3; Status: F Test: MONO #; Value: 0.7; Range: 0.0-0.8; Units: K/mm3; Status: F Test: EOS #; Value: 0.2; Range: 0.0-0.50; Units: K/mm3; Status: F Test: BASO #; Value: 0.1; Range: 0.0-0.2; Units: K/mm3; Status: F Test: LARGE UNSTAINED CELL #; Value: 0.4; Range: 0.0-0.4; Units: K/mm3; Status: F Lab Order: MED Profile; [facility] 07/02/16 03:02 Test: GLUCOSE, FASTING; Value: 110; Range: 83-110; Units: MG/DL; Status: F Test: BLOOD UREA NITROGEN; Value: 18; Range: 7-18; Units: MG/DL; Status: F Test: CREATININE FOR GFR; Value: 1.21; Range: 0.70-1.30; Units: MG/DL; Status: F Test: GLOMERULAR FILTRATION RATE; Value: > 60.0; Range: >42; Status: F Test: SODIUM LEVEL; Value: 140; Range: 136-145; Units: MEQ/L; Status: F Test: POTASSIUM SERUM; Value: 3.9; Range: 3.5-5.1; Units: MEQ/L; Status: F Test: CHLORIDE LEVEL; Value: 102; Range: 98-107; Units: MEQ/L; Status: F Test: CARBON DIOXIDE LEVEL; Value: 28; Range: 21-32; Units: MEQ/L; Status: F Test: ANION GAP; Value: 10; Range: 8-16; Units: MEQ/L; Status: F Test: CALCIUM LEVEL; Value: 8.7; Range: 8.8-10.2; Abnormal: Below low normal; Units: MG/DL; Status: F Test Note: ; Units are mL/min/1.73 m2 Chronic Kidney Disease Staging per NKF: Stage I & II GFR >=60 Normal to Mildly Decreased Stage III GFR 30-59 Moderately Decreased Stage IV GFR 15-29 Severely Decreased Stage V GFR <15 Very Little GFR Left ESRD GFR <15 on CORN GROWER Lab Order: -Arterial Blood Gas; [facility] 07/02/16 04:54 Test: ABG pH (ARTERIAL); Value: 7.463; Range: 7.350-7.450; Abnormal: Above high normal; Units: UNITS; Status: F Test: ABG PARTIAL PRESSURE CO2; Value: 39.7; Range: 35.0-45.0; Units: mmHg; Status: F Test: ABG PARTIAL PRESSURE O2; Value: 59.1; Range: 75.0-100.0; Abnormal: Below low normal; Units: mmHg; Status: F Test: ABG TOTAL CO2; Value: 29.0; Range: 23.0-31.0; Units: MEQ/L; Status: F Test: ABG HCO3; Value: 27.8; Range: 22.0-26.0; Abnormal: Above high normal; Units: MEQ/L; Status: F Test: ABG BASE EXCESS; Value: 3.8; Range: -2.0-2.0; Abnormal: Above high normal; Status: F Test: ABG STANDARD HCO3; Value: 27.7; Range: 22.0-26.0; Abnormal: Above high normal; Units: MEQ/L; Status: F Test: ABG O2 SATURATION; Value: 91.9; Range: 95.0-99.0; Abnormal: Below low normal; Units: %; Status: F Test: ABG DEVICE; Value: NASAL MADIHA; Status: F Lab Order: Lactic Acid (Pruitt tube on ice); SPEC'M 07/02/16 05:22 Test: LACTIC ACID SEPSIS PROTOCOL; Value: 1.0; Range: 0.4-2.0; Units: MMOL/L; Status: F Lab Order: RESPIRATORY PANEL; SPEC'M 07/02/16 06:25 Test: RESPIRATORY PANEL; Value: RP PANEL RESULT NEGATIVE by PCR; Status: F Test: RESPIRATORY PANEL; Value: Comments:; Status: F Test Note: ; This respiratory PCR panel detects Influenza A H1, H3 and 2009 H1 viruses, Influenza B virus, Respiratory syncytial virus, Human metapneumovirus, Parainfluenza virus 1, 2, 3 and 4, Adenovirus, Rhinovirus/Enterovirus, Coronavirus HKU1, NL63, OC43 and 229E, Bordetella pertussis, Mycoplasma pneumoniae and Chlamydia pneumoniae. Lab Order: URINALYSIS; SPEC'M 07/02/16 07:19 Test: APPEARANCE, URINE; Value: HAZY; Range: CLEAR; Status: F Test: COLOR, URINE; Value: YELLOW; Range: YELLOW; Status: F Test: PH,URINE; Value: 6.0; Range: 5.0-9.0; Units: UNITS; Status: F Test: SPECIFIC GRAVITY URINE AUTO; Value: 1.020; Range: 1.002-1.035; Status: F Test: PROTEIN, URINE AUTO; Value: 1+; Range: NEGATIVE; Abnormal: Above high normal; Units: mg/dL; Status: F Test: GLUCOSE, URINE (UA) AUTO; Value: NEGATIVE; Range: NEGATIVE; Units: mg/dL; Status: F Test: KETONE, URINE AUTO; Value: NEGATIVE; Range: NEGATIVE; Units: mg/dL; Status: F Test: UROBILINOGEN, URINE AUTO; Value: 0.2; Range: 0.0-2.0; Units: mg/dL; Status: F Test: BILIRUBIN, URINE AUTO; Value: NEGATIVE; Range: NEGATIVE; Status: F Test: NITRITE, URINE AUTO; Value: NEGATIVE; Range: NEGATIVE; Status: F Test: LEUKOCYTE ESTERASE, URINE AUTO; Value: NEGATIVE; Range: NEGATIVE; Status: F Test: BLOOD, URINE BLOOD; Value: 2+; Range: NEGATIVE; Abnormal: Above high normal; Status: F Test: WBC, URINE AUTO; Value: 10; Range: 0-3; Abnormal: Above high normal; Units: /HPF; Status: F Test: RBC, URINE AUTO; Value: 108; Range: 0-3; Abnormal: Above high normal; Units: /HPF; Status: F Test: BACTERIA, URINE AUTO; Value: 1+; Range: NEGATIVE; Abnormal: Above high normal; Status: F Test: SQUAMOUS EPITHELIAL CELL UR AU; Value: 0; Range: 0-6; Units: /HPF; Status: F Test: MUCUS, URINE; Value: SMALL; Range: NEGATIVE; Status: F Test: HYALINE CAST, URINE AUTO; Value: 0; Range: 0-1; Units: /LPF; Status: F Radiology Order: Chest, 2 View (pa\\E\\lat) Test: Chest, 2 View (pa\\E\\lat) REASON FOR EXAMINATION: fever; PA and lateral chest:; ; Comparison is 06/24/2016.; ; There is a right suprahilar infiltrate as an interval change.; ; Remainder the lung ward are clear. No pleural effusions. Cardiac size is; upper normal. Mediastinum and bony thorax are unremarkable.; ; Impression:; ; Acute right suprahilar infiltrate.; ; ; Signed by; Darren Gil MD 07/02/2016 08:25 A; Radiology Order: CT Chest Without Contrast Test: CT Chest Without Contrast REASON FOR EXAMINATION: cough, ?RUL infiltrate on CXR; ; CLINICAL HISTORY: Cough.; TECHNIQUE: Multiple axial CT images were obtained through the thorax without IV contrast material.; COMMENTS:; Bilateral basilar atelectatic pulmonary changes.; Groundglass densities in the right upper lobe.; There is no evidence of pleural or parenchymal-based mass. There are no pleural effusions. There is n; o evidence of hilar or mediastinal lymphadenopathy. The heart and great vessels are within normal lainez; its.; The visualized portions of the liver are of uniform attenuation without mass or defect. There is no i; ntra or extrahepatic biliary ductal dilatation. The spleen is unremarkable. The visualized pancreas i; s of normal contour and attenuation characteristics. There is no evidence of adrenal mass. The visual; ized portions of the kidneys present no abnormalities.; The bony structures are free of lytic or blastic lesions.; Thickened gallbladder wall.; IMPRESSION:; Bilateral basilar atelectatic pulmonary changes.; Groundglass densities in the right upper lobe.; Thickened gallbladder wall.; Thank you for your kind referral of this patient.; ; ; Outcome: 06:20 Decision to Hospitalize by Provider. pc 11:40 Discharge Assessment: Patient awake and alert. Oriented to person, place and time. aa3 Patient verbalized understanding of disposition instructions. Patient has no functional deficits. patient administered narcotics - no. The following High Risk Discharge criteria are identified: None. Admitted to Pediatrics accompanied by tech, via stretcher, with oxygen, with chart. Condition: good. CT Study completed. Admission hand-off: Report called to Negar Michael RN. Property :Personal belongings accompany Pt. 11:57 Patient left the ED. aa3 Signatures: Dispatcher [employer] EDMS Diego Matias MD MD pc Jobson, Karen, RN RN kpj Bartlett, Floyd fab Barnhardt, Michelle, Reg Reg gb Tiffanie Parker RN RN aa3 Juanjose Vela RN RN nn1 Cassi Alvarado RN RN kc3 Areyl Allred,RT RT lf2 Rima Iraheta, Reg Reg hs2 Gali Pimentel RN RN tm5 Diony Norman, Reg Reg pm4 Corrections: (The following items were deleted from the chart) 06:33 06:32 cefTRIAXone 1 grams IVPB in right hand over 30 mins tm5 tm5 07:26 07:23 Respiratory: Airway is patent Respiratory effort is even, unlabored, Respiratory kc3 pattern is regular, symmetrical, kc3 Chart Complete MTDD
[2016-07-04] MEDS ORDERED: LIDOCAINE 1% MDV 20ML VIAL As Ordered ONE (13:37)
[2016-07-04 14:00] VITALS: BP 124/73
[2016-07-04 14:41] LABS: RBC ADVIA BF 0.02; RBC CALC. BF 20000 (< 10mm3 cells/uL); WBC ADVIA BF 35.4; WBC CALC. BF 35400 cells/uL (0-20)
[2016-07-04 14:42] LABS: BF DIFF IF INDICATED? YES (NO); SYNOVIAL FLUID COLOR PALE YELLOW (YELLOW)
[2016-07-04 14:43] LABS: CC BF DIFF EXAM CYTOCENTRIFUGE; CRYSTALS, BODY FLUID URIC ACID (NONE SEEN)
[2016-07-04 15:12] LABS: HCT SOURCE RT KNEE
--- NOTE | 2016-07-04 15:33 | REP ---
Soft-tissue ultrasound right knee: History: Right knee fluid collection. Pre-aspiration imaging. Findings: Scanning through the anterior soft tissues about the patella and above the patella demonstrate suprapatellar joint fluid consistent with a joint effusion. Aspiration will proceed. Signed by Willian Linares MD 07/04/2016 04:23 P
--- NOTE | 2016-07-04 15:47 | REP ---
ULTRASOUND GUIDED RIGHT KNEE JOINT ASPIRATION: The procedure was performed under the direct supervision of Dr. Linares. The risks and benefits of the procedure were explained to the patient and informed consent was obtained. The right knee joint effusion was localized using ultrasound guidance. The skin was prepped and draped in a sterile fashion. 1% lidocaine was used as a local anesthetic. Using ultrasound guidance, a #5-Italian skater centesis catheter was inserted and 55 mL of cloudy yellow fluid was withdrawn. The patient tolerated the procedure well and there were no immediate complications. Reviewed by SHADI Hernandez 07/04/2016 03:54 PEdited and Signed by Willian Linares MD 07/04/2016 04:26 P
--- NOTE | 2016-07-04 16:48 | CR ---
DATE OF CONSULTATION: 07/04/2016 Asked to consult by Dr. Gonzáles for evaluation of post influenza pneumonia and knee and right foot swelling in a patient with known gout. HISTORY OF PRESENT ILLNESS: Mr. Jay is a 71-year-old gentleman with a recent history of influenza. He was seen in the emergency room on June 24 with fever and cough. He had a positive influenza type A. He was treated with Tamiflu for 5 days. The patient stated that was feeling better while on Tamiflu, but about 24 hours prior to admission he started having recurrent fever, nonproductive cough, lethargy, malaise, and minimal shortness of breath. His also stated he was not able to walk and was developing a gout flare-up. The patient states he has frequent gout flare-ups that he usually treats with indomethacin. Usually he takes about six tablets in one day until the symptoms resolve, and then he does pretty well. He denied any nausea, vomiting, diarrhea, abdominal pain, chest pain, dizziness, or lightheadedness. In the emergency room his white count was noted to be 20,000, and therefore he was admitted for further workup. PAST MEDICAL HISTORY: Significant for: 1. Hypertension. 2. Gout. 3. Dyslipidemia. 4. Obesity. 5. Onychomycosis. 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 SOCIAL HISTORY: He is a nonsmoker. He does not drink. He lives with his . He is retired. ALLERGIES: No known drug allergies. PHYSICAL EXAMINATION: He is a healthy-looking gentleman in no acute stress. He has oxygen on. VITAL SIGNS: Maximal temperature yesterday was 103.2 at 2 p.m. Today he has been afebrile. Blood pressure 124/73, oxygen saturation 987% on 2 liters nasal cannula, pulse 76, respirations 18. HEART: Normal S1, S2. No murmurs, rubs, or gallops. LUNGS: Diminished breath sounds at the bases but clear. ABDOMEN: Obese, soft, nontender. EXTREMITIES: Trace edema. Right foot is swollen with erythema involving the dorsal aspect of the foot, mostly at the base of the 2nd and 3rd toe. He has difficulty moving his toes. Right knee suprapatellar bursitis with an effusion, tenderness, and warmth, but the patient can move his knee with full range of motion up to 90 degrees. NEUROLOGIC: Cranial nerve intact except for the right eyelid, which is closed. 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 Upper and lower extremity strength is normal. Speech is normal. LABORATORY DATA On June 24 when he came to the emergency room (ER) with the flu, his white count was 1.2. On July 02 white count was 20.4, 29.1. Vancomycin level was 9.7. Urine Legionella antigen is pending. The right knee was aspirated at 1:45 today. Had 35 white cells, 20,000 red cells. Uric acid crystals were noted. Culture from the joint fluid is pending. Blood cultures, two sets from July 03, are no growth after 24 hours. Sputum culture has group A streptococcus, heavy, with many white cells, good specimen. Respiratory viral panel was negative for influenza or any viruses. Blood cultures done from July 02: One out of two is positive for gram-positive cocci in clusters. Blood cultures from June 24: Two sets were negative. IMAGING STUDIES: Chest x-ray from July 02 shows bilateral basilar atelectasis changes, ground-glass opacities in the right upper lobe. Chest x-ray done from July 04, previous right suprahilar infiltrate has markedly decreased. No pleural effusion. Cardiac size is normal. MEDICATIONS: - vancomycin 1 gram IV every 12 hours for the past 48 hours. - Rocephin 1 gram IV every 12 hours - amlodipine 5 mg by mouth at bedtime - Indocin 25 mg by mouth three times a day as needed for pain - Lovenox 40 mg subcutaneous daily - allopurinol 200 mg daily - vitamin C 500 mg daily - aspirin 81 mg daily - fish oil - Metamucil 1 packet by mouth daily - Zofran 4 mg IV every six hours. IMPRESSION: This is a 71-year-old gentleman who had influenza type A diagnosed on June 24, treated with Tamiflu for a total of 5 days. He presented to the emergency room on July 03 with worsening fever, severe leg and foot pain, difficulty walking, and increased cough. His CT is suggestive of right upper lobe pneumonia, and sputum culture had streptococcus. The patient most likely had a post influenza bacterial pneumonia with group A streptococcus. He also has developed swelling of his right foot and right knee with a patellar bursitis, which is positive for gout crystal, which is a flare-up of his gouty arthropathy due to an acute illness. PLAN: Agree with discontinuing vancomycin. 1. Discontinue IV Zithromax. . 2. Continue with Rocephin 1 gram every 12 hours. Probably he can receive 2 grams daily. Aspiration of the joint fluid was done and was positive for gout with crystal. Cultures have been sent to rule out possibly superimposed infection, although my suspicion is it is a gout flare-up in his foot and his knee. The patient is on indomethacin 25 mg three times a day as needed. I would suggest using it three times a day instead of as needed and possibly could benefit from a small dose of steroids, which would elevate his symptoms much quicker. His leukocytosis is most likely related to gout flare-up. I also suspect that his blood culture one out of two being positive on July 02 is likely related to staphylococcus coagulase negative contamination.
[2016-07-04 20:30] VITALS: BP 136/76
[2016-07-04] MEDS: amLODIPine 5 MG TAB PO SCH (20:50)
[2016-07-05 05:45] VITALS: BP 141/75
[2016-07-05 06:01] LABS: BASO % 0.2 % (0.0-1.0); EOS # 0.3 K/mm3 (0.0-0.50); EOS % 1.5 % (0.0-3.0); LARGE UNSTAINED CELL # 0.5 K/mm3 (0.0-0.4); LARGE UNSTAINED CELL % 2.4 % (0.0-4.0); LYMPH # 1.4 K/mm3 (1.5-4.5); LYMPH % 7.4 % (24.0-44.0); MEAN CORPUSCULAR HEMOGLOBIN 29.3 pg (27.0-33.0); MEAN CORPUSCULAR HGB CONC 31.5 g/dl (32.0-36.5); MEAN CORPUSCULAR VOLUME 93.1 fl (80.0-96.0); MONO % 5.1 % (0.0-5.0); NEUTROPHILS # 16.1 K/mm3 (1.8-7.7); NEUTROPHILS % 83.3 % (36.0-66.0); PLATELET COUNT, AUTOMATED 296 k/mm3 (150-450); RED CELL DISTRIBUTION WIDTH 13.1 % (11.5-14.5); WHITE BLOOD COUNT 19.3 K/mm3 (4.0-10.0)
[2016-07-05 06:26] LABS: CALCIUM LEVEL 9.1 MG/DL (8.8-10.2); CREATININE FOR GFR 1.32 MG/DL (0.70-1.30); GLOMERULAR FILTRATION RATE 57.1 (>42); POTASSIUM SERUM 3.9 MEQ/L (3.5-5.1)
[2016-07-05] MEDS: cefTRIAXone SOD 1 GM in D5W MINI-BAG PLUS 50 ML IV SCH ×2 (06:41→18:16)
--- NOTE | 2016-07-05 07:53 | IPNPDOC ---
Subjective General Date Seen The patient was seen on 07/05/16. Subjective Chief Complaint/HPI The patient is a 71-year-old male admitted with a reason for visit of Flu-Like Symptoms. Events since last encounter Seen and evaluated on 4PAV. 1 blood cx from 07/02 growing staph, the other w/o growth. Cx from 07/03 pending. His leukocytosis is improving, as is his fever cure , c the last fever being 1500 on 07/03 (100.7). Overall, respiratory sx improving , but he is continuing to report bilateral knee pain. Joint aspiration consistent c gout flare rather than septic arthritis. General: Reports: Normal Appetite, Denies: Chills, Fatigue, Malaise, Night Sweats Skin: Denies: Breakdown, Lesions, Rash Pulmonary: Reports: Cough, Denies: Dyspnea, Pleuritic Chest Pain Cardiovascular: Denies: Chest Pain, Lt Headedness, Orthopnea, Palpitations, Paroxysmal Noc. Dyspnea Gastrointestinal: Denies: Abdominal Pain, Constipation, Diarrhea, Nausea, Vomiting Genitourinary: Denies: Dysuria, Frequency, Incontinence, Retention Musculoskeletal: Reports: Other Symptoms (knee pain, bilateral) Psych: Reports: Mood Normal, Denies: Depression, Memory Issues Objective Physical Examination General Exam: Positive: Alert, Cooperative, No Acute Distress ENT Exam: Positive: Atraumatic, Mucous membr. moist/pink Neck Exam: Negative: JVD Chest Exam: Positive: Diminished, Normal air movement, Negative: Rales, Rhonchi, Wheezing Heart Exam: Positive: Normal S1, Normal S2, Rate Normal Abdomen Exam: Positive: Normal bowel sounds, Soft, Negative: Tenderness Extremity Exam: Positive: Swelling (right knee less red and less tender, still some discomfort that limits mobility from foot and knee.), Negative: Tenderness Skin Exam: Positive: Nl turgor and temperature, Negative: Rash Psych Exam: Positive: Other (Patient somewhat weepy, seems a bit depressed today. reveals that a friend recently from [place] cause by S.aureus.), Negative: Mood NL RAD Interpretation STUDY: CXR Rad Actions: Report Reviewed, Films Reviewed, Other Rad Comments: ( Improving infiltrate) Assessment /Plan Problems Problems: (1) Admitted with pneumonia Status: Acute Problem Text: 07/05/2016: 1/2 bcx from 07/02 + for staph, likely a contaminate. Repeat cx from 07/03 w/o growth. Last documented fever = 100.7 @1500 on 07/03. CXR from 07/04 c improving infiltrate. Leukocytosis improving c 2g Rocephin/d. Appreciate input from ID. 07/04/2016: + group A strep in sputum. Rocephin 1 gram IV q 12. Was placed on vaco and azithro for coverage of MRSA and potentially legionella, however, sputum cx grew strep. S/P treatment for influenza. Vanco and Rocephin to cover for possible CAP vs post-influenza (staph). RVP neg. White count remains elevated and still has o2 requirement. Will check urine legionella ag and initiate PO azithro. Accapella added for pulmonary toilet today. Encourage OOB. Consider repeat CXR in AM if persistent leukocytosis-- No other areas of focal infection to evaluate. On abx x 24h; utility of Ucx low. (2) Gout attack Status: Acute Problem Text: 07/05/2016: Synovial aspiration most consistent c acute gout flare , unlikely termite control representative of septic arthritis. He's on PRN indocin and continues to report bilateral knee pain which is preventing him from ambulating. We'll try a short burst of prednisone in an attempt to more expediently treat this flare. 07/04/2016: in presence of fever, swelling and increased pain: Ortho consulted to consider Aspiration of fluid in knee. Ortho (Dr. Phan Mehta..) recommends ask IR to aspirate and review results with him when available. Allopurinol continued on admission. (3) Hypertension Status: Chronic Response to Treatment: Stable Problem Text: Controlled. Continue Norvasc. Lisinopril was held on admission, but bcx have been acceptable, so no indication for resuming. (4) Hyperlipidemia Status: Chronic Response to Treatment: Stable Problem Text: Fish oil per home regimen. Plan/VTE VTE Prophylaxis Ordered?: Yes Plan IVF: Continue Diet: Continue Current Activity: Encourage Ambulation Respiratory: Wean Oxygen Diagnostics: Repeat Labs in AM Anticipated Discharge: Home VS, I&O, 24H, Fishbone Vital Signs/I&O Vital Signs Date Time Temp Pulse Resp B/P Pulse Ox O2 Delivery O2 Flow Rate FiO2 07/05/16 05:45 98.2 76 18 141/75 96 Room Air 07/04/16 14:00 2.0 I&O- Last 24 Hours up to 6 AM 07/05/16 06:00 Intake Total 1760 ml Output Total 1200 ml Balance 560 ml Laboratory Data 24H LABS Laboratory Tests 2 07/04/16 13:45: Body Fluid Crystals URIC ACIDH, Body Fluid Hematocrit < 1.0, Body Fluid Lymphocytes 11, Body Fluid Neutrophils 89, Body Fluid Source RT KNEE, Synovial Fluid Appearance CLOUDY, Synovial Fluid Color PALE YELLOW, Synovial Fluid RBC [id number], Synovial Fluid Source RT KNEE, Synovial Fluid WBC [id number] 07/05/16 05:29: Anion Gap 8, White Blood Count 19.3H, Red Blood Count 3.97L, Hemoglobin 11.6#L, Hematocrit 36.9L, Mean Corpuscular Volume 93.1, Mean Corpuscular Hemoglobin 29.3 , Mean Corpuscular Hemoglobin Concent 31.5L, Red Cell Distribution Width 13.1, Platelet Count 296, Neutrophils (%) (Auto) 83.3H, Lymphocytes (%) (Auto) 7.4L, Monocytes (%) (Auto) 5.1H, Eosinophils (%) (Auto) 1.5, Basophils (%) (Auto) 0.2 , Neutrophils # (Auto) 16.1H, Lymphocytes # (Auto) 1.4L, Monocytes # (Auto) 1.0H , Eosinophils # (Auto) 0.3, Basophils # (Auto) 0.0, Blood Urea Nitrogen 23H, Creatinine 1.32H, Sodium Level 140, Potassium Level 3.9, Chloride Level 104, Carbon Dioxide Level 28, Calcium Level 9.1, Glomerular Filtration Rate 57.1, Large Unclassified Cells # 0.5H, Large Unclassified Cells % 2.4 CBC/BMP Laboratory Tests 07/05/16 05:29 Calcium Level 9.1, Red Blood Count 3.97 L, Mean Corpuscular Volume 93.1, Mean Corpuscular Hemoglobin 29.3, Mean Corpuscular Hemoglobin Concent 31.5 L, Red Cell Distribution Width 13.1, Neutrophils (%) (Auto) 83.3 H, Lymphocytes (%) ( Auto) 7.4 L, Monocytes (%) (Auto) 5.1 H, Eosinophils (%) (Auto) 1.5, Basophils ( %) (Auto) 0.2, Neutrophils # (Auto) 16.1 H, Lymphocytes # (Auto) 1.4 L, Monocytes # (Auto) 1.0 H, Eosinophils # (Auto) 0.3, Basophils # (Auto) 0.0 Microbiology Microbiology 07/03/16 Blood Culture - Preliminary, Resulted No growth after 24 hours . All specim... 07/03/16 Blood Culture - Preliminary, Resulted No growth after 24 hours . All specim... 07/02/16 Blood Culture - Preliminary, Resulted No Growth after 72 hours. All specime... 07/02/16 Blood Culture - Final, Complete Staphylococcus Warneri 07/04/16 Gram Stain - Final, Resulted 07/04/16 Body Fluid Culture, Resulted Pending 07/02/16 Gram Stain - Final, Complete 07/02/16 Sputum Culture - Final, Complete Streptococcus Pyogenes Grp A 07/02/16 Respiratory Virus Panel (PCR) ([facility]) - Final, Complete GME ATTESTATION GME ATTESTATION My preceptor for this patient encounter was physically present in the building during the encounter and was fully available. As needed, all aspects of the patient interview, examination, medical decision making process, and medical care plan development were reviewed and approved by the preceptor. Preceptor is aware and concurs with the plan as stated in the body of this note and will attest to such by his/her cosignature. ATTENDING NOTE Patient seen and examined. Agree with plan and findings documented by Dr. Rodgers. MARRY RODGERS DO Jul 05, 2016 07:53 Anoop Gonzáles MD Jul 05, 2016 09:14
[2016-07-05] MEDS ORDERED: INDOMETHACIN 25 MG CAP PO SCH (09:00)
[2016-07-05] MEDS: ASCORBIC ACID 500 MG TAB PO SCH (09:08)
[2016-07-05] MEDS: OMEGA-3 1050MG CAPSULE PO SCH (09:08)
[2016-07-05] MEDS: ASPIRIN 81 MG ENTERIC TAB PO SCH (09:08)
[2016-07-05] MEDS: guaiFENesin ER 600 MG TAB PO SCH ×2 (09:08→20:57)
[2016-07-05] MEDS: ALLOPURINOL 100 MG TAB PO SCH (09:08)
[2016-07-05] MEDS: predniSONE 20 MG TAB PO SCH (09:08)
[2016-07-05] MEDS: ENOXAPARIN 40 MG/0.4 ML SYRINGE (J1650) SC SCH (09:09)
[2016-07-05] MEDS: METAMUCIL (PSYLLIUM) PACKET PO SCH (09:10)
[2016-07-05 13:30] VITALS: BP 139/78
[2016-07-05] MEDS: ACETAMINOPHEN TAB 650MG DOSE (2X325MG) PO PRN (14:42)
[2016-07-05] MEDS ORDERED: INDOMETHACIN 25 MG CAP PO PRN (15:45)
[2016-07-05] MEDS: amLODIPine 5 MG TAB PO SCH (21:00)
[2016-07-05 22:00] VITALS: BP 117/56
[2016-07-06] MEDS: ACETAMINOPHEN TAB 650MG DOSE (2X325MG) PO PRN (04:07)
[2016-07-06 05:49] LABS: BASO # 0.1 K/mm3 (0.0-0.2); BASO % 0.3 % (0.0-1.0); EOS # 0.1 K/mm3 (0.0-0.50); EOS % 0.7 % (0.0-3.0); LARGE UNSTAINED CELL # 0.6 K/mm3 (0.0-0.4); LARGE UNSTAINED CELL % 2.6 % (0.0-4.0); LYMPH # 2.3 K/mm3 (1.5-4.5); LYMPH % 11.1 % (24.0-44.0); MEAN CORPUSCULAR HEMOGLOBIN 29.3 pg (27.0-33.0); MEAN CORPUSCULAR HGB CONC 31.7 g/dl (32.0-36.5); MEAN CORPUSCULAR VOLUME 92.4 fl (80.0-96.0); MONO # 0.9 K/mm3 (0.0-0.8); MONO % 4.1 % (0.0-5.0); NEUTROPHILS # 16.9 K/mm3 (1.8-7.7); NEUTROPHILS % 81.2 % (36.0-66.0); PLATELET COUNT, AUTOMATED 313 k/mm3 (150-450); RED CELL DISTRIBUTION WIDTH 13.1 % (11.5-14.5); WHITE BLOOD COUNT 20.8 K/mm3 (4.0-10.0)
[2016-07-06 06:00] VITALS: BP 158/75
[2016-07-06 06:04] LABS: CALCIUM LEVEL 8.8 MG/DL (8.8-10.2); CREATININE FOR GFR 1.31 MG/DL (0.70-1.30); GLOMERULAR FILTRATION RATE 57.6 (>42); POTASSIUM SERUM 3.8 MEQ/L (3.5-5.1)
[2016-07-06] MEDS: cefTRIAXone SOD 1 GM in D5W MINI-BAG PLUS 50 ML IV SCH (06:15)
--- NOTE | 2016-07-06 09:00 | IPNPDOC ---
Subjective General Date Seen The patient was seen on 07/06/16. Subjective Chief Complaint/HPI The patient is a 71-year-old male admitted with a reason for visit of Flu-Like Symptoms. Events since last encounter Pt denies any new issues. Still with some knee pain that improved after applying ice. Denies CP, SOB, Abd pain. Pulmonary: Denies: Dyspnea Cardiovascular: Denies: Chest Pain Gastrointestinal: Denies: Abdominal Pain, Nausea, Vomiting Objective Physical Examination General Exam: Positive: Alert, Cooperative, No Acute Distress ENT Exam: Positive: Atraumatic, Mucous membr. moist/pink Neck Exam: Negative: JVD Chest Exam: Positive: Diminished, Normal air movement, Negative: Rales, Rhonchi, Wheezing Heart Exam: Positive: Normal S1, Normal S2, Rate Normal Abdomen Exam: Positive: Normal bowel sounds, Soft, Negative: Tenderness Extremity Exam: Positive: Swelling (right knee less red and less tender, still some discomfort that limits mobility from foot and knee.), Negative: Tenderness Skin Exam: Positive: Nl turgor and temperature, Negative: Rash Psych Exam: Negative: Mood NL Assessment /Plan Problems Problems: (1) Admitted with pneumonia Status: Acute Problem Text: 07/06 - Blood cx 1: Staph Warneri; Blood cx 2: no growth after 72 hrs. Sputum cx: Strep Pyogenes group A. On Rocephin 1 g q12h. Currently afebrile and last documented fever of 100.7 yesterday at 1403. ID following. Will D/C the Rocephin and start PO amoxicillin. 07/05/2016: 1/2 bcx from 07/02 + for staph, likely a contaminate. Repeat cx from 07/03 w/o growth. Last documented fever = 100.7 @1500 on 07/03. CXR from 07/04 c improving infiltrate. Leukocytosis improving c 2g Rocephin/d. Appreciate input from ID. 07/04/2016: + group A strep in sputum. Rocephin 1 gram IV q 12. Was placed on vaco and azithro for coverage of MRSA and potentially legionella, however, sputum cx grew strep. S/P treatment for influenza. Vanco and Rocephin to cover for possible CAP vs post-influenza (staph). RVP neg. White count remains elevated and still has o2 requirement. Will check urine legionella ag and initiate PO azithro. Accapella added for pulmonary toilet today. Encourage OOB. Consider repeat CXR in AM if persistent leukocytosis-- No other areas of focal infection to evaluate. On abx x 24h; utility of Ucx low. (2) Gout attack Status: Acute Problem Text: 07/06 - On Prednisone. 07/05/2016: Synovial aspiration most consistent c acute gout flare, unlikely healthcare representative of septic arthritis. He's on PRN indocin and continues to report bilateral knee pain which is preventing him from ambulating. We'll try a short burst of prednisone in an attempt to more expediently treat this flare. 07/04/2016: in presence of fever, swelling and increased pain: Ortho consulted to consider Aspiration of fluid in knee. Ortho (Dr. Phan Mehta..) recommends ask IR to aspirate and review results with him when available. Allopurinol continued on admission. (3) Hypertension Status: Chronic Response to Treatment: Stable Problem Text: Controlled. Continue Norvasc. Lisinopril was held on admission (4) Hyperlipidemia Status: Chronic Response to Treatment: Stable Problem Text: Fish oil per home regimen. Plan/VTE VTE Prophylaxis Ordered?: Yes Plan IVF: Continue Diet: Continue Current Activity: Encourage Ambulation Respiratory: Wean Oxygen Diagnostics: Repeat Labs in AM Anticipated Discharge: Home VS, I&O, 24H, Sayda Vital Signs/I&O Vital Signs Date Time Temp Pulse Resp B/P Pulse Ox O2 Delivery O2 Flow Rate FiO2 07/06/16 06:00 99.0 77 20 158/75 93 07/05/16 21:10 Room Air 07/04/16 14:00 2.0 I&O- Last 24 Hours up to 6 AM 07/06/16 06:00 Intake Total 1920 ml Output Total 625 ml Balance 1295 ml Laboratory Data 24H LABS Laboratory Tests 2 07/06/16 05:27: Anion Gap 8, White Blood Count 20.8H, Red Blood Count 3.68L, Hemoglobin 10.8L, Hematocrit 34.0L, Mean Corpuscular Volume 92.4, Mean Corpuscular Hemoglobin 29.3 , Mean Corpuscular Hemoglobin Concent 31.7L, Red Cell Distribution Width 13.1, Platelet Count 313, Neutrophils (%) (Auto) 81.2H, Lymphocytes (%) (Auto) 11.1L, Monocytes (%) (Auto) 4.1, Eosinophils (%) (Auto) 0.7, Basophils (%) (Auto) 0.3, Neutrophils # (Auto) 16.9H, Lymphocytes # (Auto) 2.3, Monocytes # (Auto) 0.9H, Eosinophils # (Auto) 0.1, Basophils # (Auto) 0.1, Blood Urea Nitrogen 28H, Creatinine 1.31H, Sodium Level 141, Potassium Level 3.8, Chloride Level 105, Carbon Dioxide Level 28, Calcium Level 8.8, Glomerular Filtration Rate 57.6, Large Unclassified Cells # 0.6H, Large Unclassified Cells % 2.6 CBC/BMP Laboratory Tests 07/06/16 05:27 Calcium Level 8.8, Red Blood Count 3.68 L, Mean Corpuscular Volume 92.4, Mean Corpuscular Hemoglobin 29.3, Mean Corpuscular Hemoglobin Concent 31.7 L, Red Cell Distribution Width 13.1, Neutrophils (%) (Auto) 81.2 H, Lymphocytes (%) ( Auto) 11.1 L, Monocytes (%) (Auto) 4.1, Eosinophils (%) (Auto) 0.7, Basophils (% ) (Auto) 0.3, Neutrophils # (Auto) 16.9 H, Lymphocytes # (Auto) 2.3, Monocytes # (Auto) 0.9 H, Eosinophils # (Auto) 0.1, Basophils # (Auto) 0.1 Microbiology Microbiology 07/03/16 Blood Culture - Preliminary, Resulted No Growth after 48 hours. All Specime... 07/03/16 Blood Culture - Preliminary, Resulted No Growth after 48 hours. All Specime... 07/02/16 Blood Culture - Preliminary, Resulted No Growth after 72 hours. All specime... 07/02/16 Blood Culture - Final, Complete Staphylococcus Warneri 07/04/16 Gram Stain - Final, Resulted 07/04/16 Body Fluid Culture, Resulted Pending 07/02/16 Gram Stain - Final, Complete 07/02/16 Sputum Culture - Final, Complete Streptococcus Pyogenes Grp A 07/02/16 Respiratory Virus Panel (PCR) ([facility]) - Final, Complete Saul Meehan RPA-C Jul 06, 2016 09:00
[2016-07-06] MEDS: METAMUCIL (PSYLLIUM) PACKET PO SCH (09:48)
[2016-07-06] MEDS: predniSONE 20 MG TAB PO SCH (09:49)
[2016-07-06] MEDS: ALLOPURINOL 100 MG TAB PO SCH (09:49)
[2016-07-06] MEDS: ENOXAPARIN 40 MG/0.4 ML SYRINGE (J1650) SC SCH (09:49)
[2016-07-06] MEDS: ASCORBIC ACID 500 MG TAB PO SCH (09:49)
[2016-07-06] MEDS: OMEGA-3 1050MG CAPSULE PO SCH (09:49)
[2016-07-06] MEDS: guaiFENesin ER 600 MG TAB PO SCH ×2 (09:49→22:07)
[2016-07-06] MEDS: ASPIRIN 81 MG ENTERIC TAB PO SCH (09:49)
[2016-07-06] MEDS: AMOXICILLIN 875 MG TAB PO SCH ×2 (12:55→22:06)
[2016-07-06 14:00] VITALS: BP 152/75
[2016-07-06 22:00] VITALS: BP 133/66
[2016-07-06] MEDS: amLODIPine 5 MG TAB PO SCH (22:07)
[2016-07-07] MEDS: ACETAMINOPHEN TAB 650MG DOSE (2X325MG) PO PRN (01:54)
[2016-07-07] MEDS ORDERED: PERCOCET 5MG/325MG TAB PO PRN (03:00)
[2016-07-07 06:00] VITALS: BP 151/81
[2016-07-07 06:24] LABS: ANION GAP 8 MEQ/L (8-16); BLOOD UREA NITROGEN 21 MG/DL (7-18); CALCIUM LEVEL 8.8 MG/DL (8.8-10.2); CARBON DIOXIDE LEVEL 28 MEQ/L (21-32); CHLORIDE LEVEL 104 MEQ/L (98-107); GLOMERULAR FILTRATION RATE > 60.0 (>42); GLUCOSE, FASTING 84 MG/DL (83-110); POTASSIUM SERUM 4.5 MEQ/L (3.5-5.1); SODIUM LEVEL 140 MEQ/L (136-145)
[2016-07-07 06:29] LABS: BASO # 0.1 K/mm3 (0.0-0.2); BASO % 0.4 % (0.0-1.0); EOS # 0.1 K/mm3 (0.0-0.50); EOS % 0.7 % (0.0-3.0); LARGE UNSTAINED CELL # 0.4 K/mm3 (0.0-0.4); LARGE UNSTAINED CELL % 2.1 % (0.0-4.0); LYMPH # 2.3 K/mm3 (1.5-4.5); LYMPH % 11.8 % (24.0-44.0); MEAN CORPUSCULAR HEMOGLOBIN 30.2 pg (27.0-33.0); MEAN CORPUSCULAR HGB CONC 32.3 g/dl (32.0-36.5); MEAN CORPUSCULAR VOLUME 93.5 fl (80.0-96.0); MONO # 1.1 K/mm3 (0.0-0.8); MONO % 5.6 % (0.0-5.0); NEUTROPHILS # 15.3 K/mm3 (1.8-7.7); NEUTROPHILS % 79.4 % (36.0-66.0); PLATELET COUNT, AUTOMATED 384 k/mm3 (150-450); RED CELL DISTRIBUTION WIDTH 12.8 % (11.5-14.5); WHITE BLOOD COUNT 19.2 K/mm3 (4.0-10.0)
--- NOTE | 2016-07-07 06:31 | REP ---
BILATERAL RENAL ULTRASOUND: 07/06/2016. Clinical history: Leukocytosis, microhematuria. No comparison study. Findings: The right kidney is 12 x 5.5 x 4.7 cm. There is a parapelvic cyst interpolar lower pole junction 1.7 x 1.6 cm and peripheral interpolar cyst 1.3 x 1.3 cm. There is a lower pole cyst 1.9 x 1.8 cm. No hydronephrosis or hydroureter. Cortical thickness and echogenicity are normal. The left kidney is 12.3 x 5.1 x 3.7 cm. It has cortical echogenicity and thickness which are normal although there is lobation of that kidney. There are multiple cysts in the cortex and interpolar regions, the largest in the upper pole 3.3 x 3.1 cm with a 1.7 x 1.3 cm lower pole and peripheral lower pole 1.9 x 1.7. Other centimeter sized cyst in the interpolar and parapelvic locations. No hydronephrosis, solid mass or perinephric fluid. There is a 8 mm and a 15 mm stone in the lower pole of the left kidney. Kidneys without hydronephrosis or hydroureter. The bladder is empty and could not be evaluated. Impression: 1. Lower pole stones on the left and bilateral renal cysts. Cortical thickness and echogenicity normal. No hydronephrosis or hydroureter. No solid renal mass. 2. The bladder is bladder empty and could not be evaluated. Signed by Michael Hemphill MD 07/07/2016 09:13 A
--- NOTE | 2016-07-07 08:26 | IPNPDOC ---
Subjective General Date Seen The patient was seen on 07/07/16. Subjective Chief Complaint/HPI The patient is a 71-year-old male admitted with a reason for visit of Flu-Like Symptoms. Events since last encounter States developed severe gout pain to right knee overnight. Prn medications provided poor relief. states Indomethacin has always been the most effective. Constitutional: Denies: Chills, Fever, Night Sweats Eyes: Denies: Pain, Vision change ENT: Denies: Dysphagia, Ear Pain, Head Aches Skin: Denies: Breakdown, Lesions, Rash Pulmonary: Denies: Cough, Dyspnea Cardiovascular: Denies: Chest Pain, Lt Headedness, Orthopnea, Palpitations, Paroxysmal Noc. Dyspnea Gastrointestinal: Denies: Abdominal Pain, Constipation, Diarrhea, Nausea, Vomiting Genitourinary: Denies: Dysuria, Frequency, Incontinence, Retention Musculoskeletal: Reports: Other Symptoms (knee pain and swelling to right knee. ) Psych: Reports: Mood Normal, Denies: Depression, Memory Issues Objective Physical Examination General Exam: Positive: Alert, Cooperative, No Acute Distress ENT Exam: Positive: Atraumatic, Mucous membr. moist/pink Neck Exam: Negative: JVD Chest Exam: Positive: Diminished, Normal air movement, Negative: Rales, Rhonchi, Wheezing Heart Exam: Positive: Normal S1, Normal S2, Rate Normal Abdomen Exam: Positive: Normal bowel sounds, Soft, Negative: Tenderness Extremity Exam: Positive: Swelling (right kneewithout erythema and less tender , still some discomfort that limits mobility from foot and knee.), Negative: Tenderness Skin Exam: Positive: Nl turgor and temperature, Negative: Rash Psych Exam: Negative: Mood NL Assessment /Plan Problems Problems: (1) Admitted with pneumonia Status: Acute Problem Text: 07/07/2016: breathing and respiratory symptoms improved. Temp of 100.1 overnight. Continue po Amoxicillin 07/06 - Blood cx 1: Staph Warneri; Blood cx 2: no growth after 72 hrs. Sputum cx : Strep Pyogenes group A. On Rocephin 1 g q12h. Currently afebrile and last documented fever of 100.7 yesterday at 1403. ID following. Will D/C the Rocephin and start PO amoxicillin. 07/05/2016: 1/2 bcx from 07/02 + for staph, likely a contaminate. Repeat cx from 07/03 w/o growth. Last documented fever = 100.7 @1500 on 07/03. CXR from 07/04 c improving infiltrate. Leukocytosis improving c 2g Rocephin/d. Appreciate input from ID. 07/04/2016: + group A strep in sputum. Rocephin 1 gram IV q 12. Was placed on vaco and azithro for coverage of MRSA and potentially legionella, however, sputum cx grew strep. S/P treatment for influenza. Vanco and Rocephin to cover for possible CAP vs post-influenza (staph). RVP neg. White count remains elevated and still has o2 requirement. Will check urine legionella ag and initiate PO azithro. Accapella added for pulmonary toilet today. Encourage OOB. Consider repeat CXR in AM if persistent leukocytosis-- No other areas of focal infection to evaluate. On abx x 24h; utility of Ucx low. 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 He's on PRN indocin and continues to report bilateral knee pain which is preventing him from ambulating. We'll try a short burst of prednisone in an attempt to more expediently treat this flare. 07/04/2016: in presence of fever, swelling and increased pain: Ortho consulted to consider Aspiration of fluid in knee. Ortho (Dr. Phan Mehta..) recommends ask IR to aspirate and review results with him when available. Allopurinol continued on admission. (3) Hypertension Status: Chronic Response to Treatment: Stable Problem Text: Controlled. Continue Norvasc. Lisinopril was held on admission (4) Hyperlipidemia Status: Chronic Response to Treatment: Stable Problem Text: Fish oil per home regimen. Plan/VTE VTE Prophylaxis Ordered?: Yes Plan IVF: Continue Diet: Continue Current Activity: Encourage Ambulation Respiratory: Wean Oxygen Diagnostics: Repeat Labs in AM Anticipated Discharge: Home VS, I&O, 24H, [place] Vital Signs/I&O Vital Signs Date Time Temp Pulse Resp B/P Pulse Ox O2 Delivery O2 Flow Rate FiO2 07/07/16 06:00 97.5 73 20 151/81 9 07/07/16 03:42 Room Air 07/04/16 14:00 2.0 I&O- Last 24 Hours up to 6 AM 07/07/16 06:00 Intake Total 1620 ml Output Total 1750 ml Balance -130 ml Laboratory Data 24H LABS Laboratory Tests 2 07/06/16 20:44: Urine Amorphous Sediment , Urine Appearance CLEAR, Urine Color YELLOW, Urine pH 5.0, Urine Specific [place] 1.018, Urine Protein 1+H, Urine Glucose (UA) NEGATIVE, Urine Ketones NEGATIVE, Urine Urobilinogen 0.2, Urine Bilirubin NEGATIVE, Urine Leukocyte Esterase NEGATIVE, Urine Bacteria (Auto) 1+H, Urine Blood NEGATIVE, Urine Calcium Carbonate Cryst(Auto) , Urine Calcium Oxalate Cryst (Auto) , Urine Calcium Phosphate [place] (Auto) , Urine Cellular Casts , Urine Cystine Crystals , Urine Granular Casts (Auto) , Urine Hyaline Casts (Auto ) 0, Urine Leucine Crystals , Urine Mucus (Auto) SMALL, Urine Nitrite NEGATIVE, Urine Oval Fat Bodies (Auto) , Urine RBC (Auto) 12H, Urine Renal Epithelial Cells , Urine Sperm (Auto) , Urine Squamous Epithelial Cells 0, Urine Transitional Epithelial Cells , Urine Trichomonas (Auto) , Urine Triple Phosphate Cryst (Auto) , Urine Tyrosine Crystals , Urine Uric Acid Crystals ( Auto) , Urine WBC (Auto) 3, Urine Waxy Casts (Auto) , Urine Yeast-Like Cells ( Auto) 07/07/16 05:20: Anion Gap 8, White Blood Count 19.2H, Red Blood Count 3.74L, Hemoglobin 11.3L, Hematocrit 35.0L, Mean Corpuscular Volume 93.5, Mean Corpuscular Hemoglobin 30.2 , Mean Corpuscular Hemoglobin Concent 32.3, Red Cell Distribution Width 12.8, Platelet Count 384, Neutrophils (%) (Auto) 79.4H, Lymphocytes (%) (Auto) 11.8L, Monocytes (%) (Auto) 5.6H, Eosinophils (%) (Auto) 0.7, Basophils (%) (Auto) 0.4 , Neutrophils # (Auto) 15.3H, Lymphocytes # (Auto) 2.3, Monocytes # (Auto) 1.1H , Eosinophils # (Auto) 0.1, Basophils # (Auto) 0.1, Blood Urea Nitrogen 21H, Creatinine 1.20, Sodium Level 140, Potassium Level 4.5, Chloride Level 104, Carbon Dioxide Level 28, Calcium Level 8.8, Glomerular Filtration Rate > 60.0, Large Unclassified Cells # 0.4, Large Unclassified Cells % 2.1 CBC/BMP Laboratory Tests 07/07/16 05:20 Calcium Level 8.8, Red Blood Count 3.74 L, Mean Corpuscular Volume 93.5, Mean Corpuscular Hemoglobin 30.2, Mean Corpuscular Hemoglobin Concent 32.3, Red Cell Distribution Width 12.8, Neutrophils (%) (Auto) 79.4 H, Lymphocytes (%) (Auto) 11.8 L, Monocytes (%) (Auto) 5.6 H, Eosinophils (%) (Auto) 0.7, Basophils (%) ( Auto) 0.4, Neutrophils # (Auto) 15.3 H, Lymphocytes # (Auto) 2.3, Monocytes # ( Auto) 1.1 H, Eosinophils # (Auto) 0.1, Basophils # (Auto) 0.1 Microbiology Microbiology 07/03/16 Blood Culture - Preliminary, Resulted No Growth after 72 hours. All specime... 07/03/16 Blood Culture - Preliminary, Resulted No Growth after 72 hours. All specime... 07/02/16 Blood Culture - Final, Complete NO GROWTH AFTER 5 DAYS 07/02/16 Blood Culture - Final, Complete Staphylococcus Warneri 07/04/16 Gram Stain - Final, Resulted 07/04/16 Body Fluid Culture, Resulted Pending 07/02/16 Gram Stain - Final, Complete 07/02/16 Sputum Culture - Final, Complete Streptococcus Pyogenes Grp A 07/02/16 Respiratory Virus Panel (PCR) ([facility]) - Final, Complete Agata Lozada Jul 07, 2016 08:26 Jono Arreguin M.D. Jul 07, 2016 16:45
[2016-07-07] MEDS ORDERED: INDOMETHACIN 25 MG CAP PO PRN (08:30)
[2016-07-07] MEDS: OMEGA-3 1050MG CAPSULE PO SCH (09:30)
[2016-07-07] MEDS: METAMUCIL (PSYLLIUM) PACKET PO SCH (09:30)
[2016-07-07] MEDS: ASPIRIN 81 MG ENTERIC TAB PO SCH (09:30)
[2016-07-07] MEDS: guaiFENesin ER 600 MG TAB PO SCH ×2 (09:30→20:55)
[2016-07-07] MEDS: ALLOPURINOL 100 MG TAB PO SCH (09:31)
[2016-07-07] MEDS: AMOXICILLIN 875 MG TAB PO SCH ×2 (09:31→20:55)
[2016-07-07] MEDS: ASCORBIC ACID 500 MG TAB PO SCH (09:31)
[2016-07-07] MEDS: predniSONE 20 MG TAB PO SCH (09:31)
[2016-07-07] MEDS: PERCOCET 5MG/325MG TAB PO PRN ×2 (09:42→20:56)
[2016-07-07] MEDS: ENOXAPARIN 40 MG/0.4 ML SYRINGE (J1650) SC SCH (10:16)
[2016-07-07] MEDS ORDERED: methylPREDNISolone INJ 125 MG/2 ML VIAL (J2930) IV ONE (12:30)
[2016-07-07 14:00] VITALS: BP 155/83
[2016-07-07] MEDS: diphenhydrAMINE 25 MG CAP PO PRN (16:49)
--- NOTE | 2016-07-07 16:59 | IPN ---
DATE: 07/07/2016 Mr. Jay is doing better with his cough and shortness of breath. He is off oxygen. He has no nausea, vomiting or diarrhea. No abdominal pain. He does complain of still stiffness, significant limited range of motion, especially both knees. He has had a low grade fever. Temperature is 100.7. He has been taking indomethacin 25 mg by mouth three times a day with minimal improvement and prednisone 20 mg. Today, he was given prednisone 60 mg. He states that usually when he gets gout, he is treated with a total of 50 mg three times a day, which he does on his own. PHYSICAL EXAMINATION: Temperature is 100.7, pulse 90, respirations 18, blood pressure 155/83, oxygen saturation 97% on room air. Heart: Normal S1, S2, distant. No murmurs. Lungs are clear. No wheezes, rales or rhonchi. Abdomen: Soft, nontender. Back: No costovertebral angle tenderness. Extremities: No clubbing, cyanosis or edema. Right knee has a patellar effusion, which has decreased in size, decreased redness, foot has decreased redness on the dorsal aspect. His ankle has mild swelling on the medial malleolus. Left little toe has mild erythema as well. He has significant limitation of range of motion of both knees. LABORATORY DATA: White count is still 19.2, hemoglobin 11.3, hematocrit 35, platelets 384, 79% neutrophils, 11% lymphocytes, 5% monocytes. Sodium 140, potassium 4.5, chloride 104, bicarbonate 28, BUN 21, creatinine 1.2, glucose 84, calcium 8.8, CRP 14.4, which is down from 29.1. Blood cultures, two sets, from 07/03/2016 are no growth after 72 hours. Aspirate from the knee bursa had many white cells, no organisms seen. Blood culture is still pending. It also had gout crystals. White cell was 35,400, 89% neutrophils. IMPRESSION: 1. Group A Streptococcus pneumoniae, status post influenza. Chest x-ray done on 07/04/2016 shows an improved right suprahilar infiltrate, had decreased in size. The patient is currently on amoxicillin. 2. Polyarticular gouty arthritis involving both knees, right foot, as well as left little toe. 3. Diffuse maculopapular rash on the back. Could be related to fever and sweating. It does not involve any other parts of his body. 4. Persistent fever, probably related to gout flare-up. PLAN: CRP has improved. If the patient continues to be febrile, I would consider imaging his right knee to make sure he does not have a septic knee as the patient has significant limitation of range of motion of his right knee. Continue amoxicillin. Monitor for rash. If it worsens, discontinue amoxicillin. The patient has been started on Benadryl and prednisone 60 mg by mouth daily. MTDD
[2016-07-07] MEDS: amLODIPine 5 MG TAB PO SCH (20:56)
[2016-07-07 22:00] VITALS: BP 135/86
[2016-07-08 06:00] VITALS: BP 140/96
[2016-07-08 06:57] LABS: BASO % 0.1 % (0.0-1.0); LARGE UNSTAINED CELL # 0.2 K/mm3 (0.0-0.4); LARGE UNSTAINED CELL % 0.8 % (0.0-4.0); LYMPH # 1.6 K/mm3 (1.5-4.5); LYMPH % 7.8 % (24.0-44.0); MEAN CORPUSCULAR HEMOGLOBIN 29.9 pg (27.0-33.0); MEAN CORPUSCULAR HGB CONC 32.4 g/dl (32.0-36.5); MEAN CORPUSCULAR VOLUME 92.3 fl (80.0-96.0); MONO # 0.6 K/mm3 (0.0-0.8); MONO % 2.7 % (0.0-5.0); NEUTROPHILS % 88.6 % (36.0-66.0); PLATELET COUNT, AUTOMATED 433 k/mm3 (150-450); RED CELL DISTRIBUTION WIDTH 13.1 % (11.5-14.5); WHITE BLOOD COUNT 20.3 K/mm3 (4.0-10.0)
[2016-07-08 07:07] LABS: ANION GAP 9 MEQ/L (8-16); BLOOD UREA NITROGEN 23 MG/DL (7-18); CALCIUM LEVEL 8.9 MG/DL (8.8-10.2); CARBON DIOXIDE LEVEL 28 MEQ/L (21-32); CHLORIDE LEVEL 104 MEQ/L (98-107); CREATININE FOR GFR 1.15 MG/DL (0.70-1.30); GLOMERULAR FILTRATION RATE > 60.0 (>42); GLUCOSE, FASTING 110 MG/DL (83-110); POTASSIUM SERUM 4.6 MEQ/L (3.5-5.1); SODIUM LEVEL 141 MEQ/L (136-145)
[2016-07-08 09:00] VITALS: BP 139/82
--- NOTE | 2016-07-08 09:33 | IPNPDOC ---
Subjective General Date Seen The patient was seen on 07/08/16. Subjective Chief Complaint/HPI The patient is a 71-year-old male admitted with a reason for visit of Flu-Like Symptoms. Events since last encounter Noting significant improvement in knee pain with higher dose steroids. Denies other c/o. Had low grade temp of 100.7 yesterday. General: Reports: ROS Unobtainable Constitutional: Reports: Fever ENT: Denies: Dysphagia, Ear Pain, Head Aches Skin: Denies: Breakdown, Lesions, Rash Pulmonary: Denies: Cough, Dyspnea Cardiovascular: Denies: Chest Pain, Lt Headedness, Orthopnea, Palpitations, Paroxysmal Noc. Dyspnea Gastrointestinal: Denies: Abdominal Pain, Constipation, Diarrhea, Nausea, Vomiting Genitourinary: Denies: Dysuria, Frequency, Incontinence, Retention Psych: Reports: Mood Normal, Denies: Depression, Memory Issues Objective Physical Examination General Exam: Positive: Alert, Cooperative, No Acute Distress ENT Exam: Positive: Atraumatic, Mucous membr. moist/pink Neck Exam: Negative: JVD Chest Exam: Positive: Diminished, Normal air movement, Negative: Rales, Rhonchi, Wheezing Heart Exam: Positive: Normal S1, Normal S2, Rate Normal Abdomen Exam: Positive: Normal bowel sounds, Soft, Negative: Tenderness Extremity Exam: Positive: Swelling (right kneewithout erythema and less tender , still some discomfort that limits mobility from foot and knee.), Negative: Tenderness Skin Exam: Positive: Nl turgor and temperature, Negative: Rash Psych Exam: Negative: Mood NL Assessment /Plan Problems Problems: (1) Admitted with pneumonia Status: Acute Problem Text: 07/08/2016: breathing and respiratory symptoms improved. Temp of 100.1 overnight. completed 7D amox-therefore, stopped per [place] 07/07/2016: breathing and respiratory symptoms improved. Temp of 100.1 overnight. Continue po Amoxicillin 07/06 - Blood cx 1: Staph Warneri; Blood cx 2: no growth after 72 hrs. Sputum cx : Strep Pyogenes group A. On Rocephin 1 g q12h. Currently afebrile and last documented fever of 100.7 yesterday at 1403. ID following. Will D/C the Rocephin and start PO amoxicillin. 07/05/2016: 1/2 bcx from 07/02 + for staph, likely a contaminate. Repeat cx from 07/03 w/o growth. Last documented fever = 100.7 @1500 on 07/03. CXR from 07/04 c improving infiltrate. Leukocytosis improving c 2g Rocephin/d. Appreciate input from ID. 07/04/2016: + group A strep in sputum. Rocephin 1 gram IV q 12. Was placed on vaco and azithro for coverage of MRSA and potentially legionella, however, sputum cx grew strep. S/P treatment for influenza. Vanco and Rocephin to cover for possible CAP vs post-influenza (staph). RVP neg. White count remains elevated and still has o2 requirement. Will check urine legionella ag and initiate PO azithro. Accapella added for pulmonary toilet today. Encourage OOB. Consider repeat CXR in AM if persistent leukocytosis-- No other areas of focal infection to evaluate. On abx x 24h; utility of Ucx low. (2) Gout attack Status: Acute Problem Text: 07/08/2016: significant improvement in symptoms with Solumedrol. Start Prednisone 60 mg po daily today. 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 He's on PRN indocin and continues to report bilateral knee pain which is preventing him from ambulating. We'll try a short burst of prednisone in an attempt to more expediently treat this flare. 07/04/2016: in presence of fever, swelling and increased pain: Ortho consulted to consider Aspiration of fluid in knee. Ortho (Dr. Phan Mehta..) recommends ask IR to aspirate and review results with him when available. Allopurinol continued on admission. (3) Hypertension Status: Chronic Response to Treatment: Stable Problem Text: Controlled. Continue Norvasc. Lisinopril was held on admission (4) Hyperlipidemia Status: Chronic Response to Treatment: Stable Problem Text: Fish oil per home regimen. Plan/VTE VTE Prophylaxis Ordered?: Yes Plan IVF: Continue Diet: Continue Current Activity: Encourage Ambulation Respiratory: Wean Oxygen Diagnostics: Repeat Labs in AM Anticipated Discharge: Home Disposition Anticipate DC home in am. VS, I&O, 24H, Fishbone Vital Signs/I&O Vital Signs Date Time Temp Pulse Resp B/P Pulse Ox O2 Delivery O2 Flow Rate FiO2 07/08/16 06:00 97.6 72 20 140/96 95 Room Air 07/04/16 14:00 2.0 I&O- Last 24 Hours up to 6 AM 07/08/16 06:00 Intake Total 1540 ml Output Total 1550 ml Balance -10 ml Laboratory Data 24H LABS Laboratory Tests 2 07/08/16 06:05: Anion Gap 9, White Blood Count 20.3H, Red Blood Count 3.96L, Hemoglobin 11.9L, Hematocrit 36.5L, Mean Corpuscular Volume 92.3, Mean Corpuscular Hemoglobin 29.9 , Mean Corpuscular Hemoglobin Concent 32.4, Red Cell Distribution Width 13.1, Platelet Count 433, Neutrophils (%) (Auto) 88.6H, Lymphocytes (%) (Auto) 7.8L, Monocytes (%) (Auto) 2.7, Eosinophils (%) (Auto) 0.0, Basophils (%) (Auto) 0.1, Neutrophils # (Auto) 18.0H, Lymphocytes # (Auto) 1.6, Monocytes # (Auto) 0.6, Eosinophils # (Auto) 0.0, Basophils # (Auto) 0.0, C-Reactive Protein, Quantitative 16.00H, Blood Urea Nitrogen 23H, Creatinine 1.15, Sodium Level 141 , Potassium Level 4.6, Chloride Level 104, Carbon Dioxide Level 28, Calcium Level 8.9, Glomerular Filtration Rate > 60.0, Large Unclassified Cells # 0.2, Large Unclassified Cells % 0.8 CBC/BMP Laboratory Tests 07/08/16 06:05 Calcium Level 8.9, Red Blood Count 3.96 L, Mean Corpuscular Volume 92.3, Mean Corpuscular Hemoglobin 29.9, Mean Corpuscular Hemoglobin Concent 32.4, Red Cell Distribution Width 13.1, Neutrophils (%) (Auto) 88.6 H, Lymphocytes (%) (Auto) 7.8 L, Monocytes (%) (Auto) 2.7, Eosinophils (%) (Auto) 0.0, Basophils (%) (Auto ) 0.1, Neutrophils # (Auto) 18.0 H, Lymphocytes # (Auto) 1.6, Monocytes # (Auto ) 0.6, Eosinophils # (Auto) 0.0, Basophils # (Auto) 0.0 Microbiology Microbiology 07/03/16 Blood Culture - Preliminary, Resulted No Growth after 72 hours. All specime... 07/03/16 Blood Culture - Preliminary, Resulted No Growth after 72 hours. All specime... 07/02/16 Blood Culture - Final, Complete NO GROWTH AFTER 5 DAYS 07/02/16 Blood Culture - Final, Complete Staphylococcus Warneri 07/04/16 Gram Stain - Final, Resulted 07/04/16 Body Fluid Culture, Resulted Pending 07/02/16 Gram Stain - Final, Complete 07/02/16 Sputum Culture - Final, Complete Streptococcus Pyogenes Grp A 07/02/16 Respiratory Virus Panel (PCR) ([facility]) - Final, Complete Agata Lozada Jul 08, 2016 09:33 Jono Arreguin M.D. Jul 08, 2016 15:53
[2016-07-08] MEDS: guaiFENesin ER 600 MG TAB PO SCH ×2 (09:44→21:32)
[2016-07-08] MEDS: ENOXAPARIN 40 MG/0.4 ML SYRINGE (J1650) SC SCH (09:44)
[2016-07-08] MEDS: METAMUCIL (PSYLLIUM) PACKET PO SCH (09:44)
[2016-07-08] MEDS: ALLOPURINOL 100 MG TAB PO SCH (09:45)
[2016-07-08] MEDS: OMEGA-3 1050MG CAPSULE PO SCH (09:45)
[2016-07-08] MEDS: ASCORBIC ACID 500 MG TAB PO SCH (09:45)
[2016-07-08] MEDS: ASPIRIN 81 MG ENTERIC TAB PO SCH (09:45)
[2016-07-08] MEDS: predniSONE 20 MG TAB PO SCH (09:45)
[2016-07-08] MEDS: AMOXICILLIN 875 MG TAB PO SCH ×2 (09:52→21:31)
[2016-07-08 14:00] VITALS: BP 147/85
[2016-07-08 17:01] VITALS: BP 147/85
--- NOTE | 2016-07-08 20:44 | IPN ---
DATE: 07/08/2015 Mr. Jay seems to be doing better. He is sitting in his chair. He is able to move his knees better. His left knee has a range of motion about 90 degrees. His right knee is still limited to 20 degrees. His ankle and toes are not painful. He has had no fever in the past 24 hours. Maximum temperature (t-max) was 99.5. HEART: Normal S1-S2. No murmurs. LUNGS: Clear. No wheezes or rhonchi. ABDOMEN: Soft, nontender. EXTREMITIES: Right knee patellar bursitis with small effusion. Range of motion 20. Left knee range of motion 90. Ankles and feet with good range of motion. SKIN: Maculopapular rash on the back and upper right clavicle, mildly pruritic. LABORATORY DATA: White count is 20.3, hemoglobin 11.6, hematocrit 36.5, platelets 433. Sodium 141, potassium 4.6, chloride 104, bicarbonate 28, BUN 23, creatinine 1.1, glucose 110, C-reactive protein still elevated at 16. Fluid from knee aspirate was negative. Blood cultures from 07/03/2016 are no growth after 5 days. IMPRESSION: 1. Polyarticular gouty arthritis. On prednisone 60 mg daily, doing much better. 2. Group A strep pneumonia on amoxicillin, currently day #3. Could be the reason for his rash. The patient is tolerating medication well with Benadryl as needed. PLAN: Discontinue amoxicillin tomorrow. The patient would have finished 7 days of treatment. The patient does not have a cough and is not hypoxic anymore. Continue prednisone, which is the reason for his leukocytosis. The patient is anxious to go home tomorrow.
[2016-07-08 21:33] VITALS: BP 158/88
[2016-07-08] MEDS: amLODIPine 5 MG TAB PO SCH (21:33)
[2016-07-08 22:00] VITALS: BP 158/88
[2016-07-09] MEDS: diphenhydrAMINE 25 MG CAP PO PRN (05:14)
[2016-07-09 05:47] VITALS: BP 160/90
[2016-07-09 06:07] LABS: BASO % 0.1 % (0.0-1.0); EOS # 0.1 K/mm3 (0.0-0.50); EOS % 0.4 % (0.0-3.0); LARGE UNSTAINED CELL # 0.3 K/mm3 (0.0-0.4); LARGE UNSTAINED CELL % 1.3 % (0.0-4.0); LYMPH # 2.9 K/mm3 (1.5-4.5); LYMPH % 13.3 % (24.0-44.0); MEAN CORPUSCULAR HEMOGLOBIN 30.3 pg (27.0-33.0); MEAN CORPUSCULAR HGB CONC 32.5 g/dl (32.0-36.5); MEAN CORPUSCULAR VOLUME 93.2 fl (80.0-96.0); MONO % 5.1 % (0.0-5.0); NEUTROPHILS % 79.9 % (36.0-66.0); PLATELET COUNT, AUTOMATED 460 k/mm3 (150-450); RED CELL DISTRIBUTION WIDTH 13.4 % (11.5-14.5)
[2016-07-09 06:22] LABS: ANION GAP 6 MEQ/L (8-16); BLOOD UREA NITROGEN 35 MG/DL (7-18); CALCIUM LEVEL 9.5 MG/DL (8.8-10.2); CARBON DIOXIDE LEVEL 31 MEQ/L (21-32); CHLORIDE LEVEL 102 MEQ/L (98-107); CREATININE FOR GFR 1.13 MG/DL (0.70-1.30); GLOMERULAR FILTRATION RATE > 60.0 (>42); GLUCOSE, FASTING 88 MG/DL (83-110); POTASSIUM SERUM 4.3 MEQ/L (3.5-5.1); SODIUM LEVEL 139 MEQ/L (136-145)
[2016-07-09] MEDS ORDERED: PRED20TA PO (08:24)
[2016-07-09] MEDS: ASCORBIC ACID 500 MG TAB PO SCH (09:37)
[2016-07-09] MEDS: OMEGA-3 1050MG CAPSULE PO SCH (09:37)
[2016-07-09] MEDS: guaiFENesin ER 600 MG TAB PO SCH (09:38)
[2016-07-09] MEDS: ALLOPURINOL 100 MG TAB PO SCH (09:38)
[2016-07-09] MEDS: predniSONE 20 MG TAB PO SCH (09:38)
[2016-07-09] MEDS: AMOXICILLIN 875 MG TAB PO SCH (09:38)
[2016-07-09] MEDS: METAMUCIL (PSYLLIUM) PACKET PO SCH (09:38)
[2016-07-09] MEDS: ASPIRIN 81 MG ENTERIC TAB PO SCH (09:38)
[2016-07-09] MEDS: ENOXAPARIN 40 MG/0.4 ML SYRINGE (J1650) SC SCH (09:39)
--- NOTE | 2016-07-09 20:43 | DSES ---
DATE OF ADMISSION: 07/03/2016 DATE OF DISCHARGE: 07/09/2016 PRIMARY CARE PHYSICIAN: CATRACHITO Gutierrez A 71-year-old male with past medical history of hypertension, gout, dyslipidemia presented to [facility] Emergency Department with a chief complaint of malaise, lethargy, nonproductive cough with a fever at home for the prior 24 hours. Patient was evaluated on 06/24/2016. Tested positive for influenza and was discharged on Tamiflu. Had already finished a 5-day trial prior to his presentation to the emergency department (ED) on 07/02/2016. Patient had improved in his symptoms, however, felt he had a relapse in his fevers. Nonproductive cough, lethargy, and malaise had returned. Workup in ED did not show any significant findings on CT of the chest; however, patient was noted to have significant elevated white blood cell count of 20,000. Patient was admitted for further evaluation and management. HOSPITAL COURSE: Patient required oxygen on initial admission. Was treated with vancomycin and Rocephin to cover for possible community-acquired pneumonia versus post influenza. Also placed on steroids to help with his symptoms. Patient's significant issues throughout hospitalization with acute gout exacerbation to the right knee and right ankle and continued with fevers. Infectious disease was consulted, as patient had positive group A Streptococcus pyogenes on his sputum culture along with swelling to the right foot and knee secondary to gout. Patient's antibiotics were switched to Rocephin 1 gram every 12. Vancomycin and azithromycin were both stopped. Patient's respiratory status continued to improve significantly; however, he continued with fevers and severe right knee and right ankle pain, causing difficulty to ambulate. Patient was weaned off of his oxygen, and the remainder of his hospitalization has been secondary to fevers and gout exacerbation. On July 07 patient was given Solu-Medrol 125 intravenous (IV) times one and placed on high-dose by mouth steroids the next day. Patient has tolerated this very well. Is able to ambulate without difficulty and is anxious to go home. Patient has been afebrile for the last 24 hours. Temperature this morning 97.4, heart rate 73, respiratory rate 18, oxygen saturation 96% on room air, blood pressure 147/85. Labs show white blood cell count of 20,000, which is considered to be steroid induced. Hemoglobin and hematocrit have been stable at 11 and 35. Platelet count of 460 is noted. Patient's CRP has continued to improve. His initial CRP was 29. IMAGING: Renal ultrasound was completed secondary to leukocytosis and microhematuria. Patient was noted to have small stones in the lower pole of the left kidney, 8 mm and 15 mm in size. Right lower extremity ultrasound completed due to right knee fluid collection. It was noted, and patient had aspiration completed with fluid evaluation. Patient had a chest x-ray complete, which showed improvement of the right suprahilar infiltrate. PROCEDURES: Patient had aspiration completed of the right knee fluid with no bacterial findings. CONSULTATIONS: Dr. Elaine Moreno, infectious disease. PHYSICAL EXAMINATION: VITAL SIGNS: Stable. He is afebrile. HEENT: Neck is supple without lymphadenopathy or jugular venous distention (JVD). CARDIOVASCULAR: Heart rate and rhythm are regular. PULMONARY: Lungs Clear to auscultation bilaterally. ABDOMEN: Soft and nontender with positive bowel sounds times all four quadrants. Bilateral lower extremities are without edema. Right knee is without erythema. There is a continued loculated prepatellar fluid collection, which is nontender. Right lower extremity at the ankle also shows no erythema and no significant inflammation. Positive pedal pulses times two. NEUROLOGIC: Patient is alert and oriented times three. No resting tremors appreciated. PSYCHIATRIC: Affect is appropriate, and conversation is congruent. Patient maintains eye contact well. ASSESSMENT: 1. Right suprahilar infiltrate, resolved. 2. Acute exacerbation of gout. 3. Hypertension. 4. Dyslipidemia. PLAN: Patient will be discharged to home. Diet is 2 gram sodium. Activity is as tolerated. He will followup with his primary care physician (PCP), Sarai Hernández, within the next 7 days. Given the significance of his gout attack, he was provided with a prednisone taper. He is to take 60 mg daily for 4 days, 40 mg daily for 4 days, 20 mg daily for 4 days, and then further adjustment to be completed by patient's PCP. Other medications include: - allopurinol 100 mg tablets. He is to take two by mouth daily, - amlodipine 5 mg by mouth at bedtime - vitamin C 500 mg by mouth daily - aspirin 81 mg by mouth daily - vitamin B complex one by mouth daily - fish oil 1000 mg by mouth daily - indomethacin 50 mg by mouth daily as needed for gout flare-up - lisinopril 20 mg by mouth twice a day - psyllium packet one daily - vitamin E 400 units by mouth daily Patient is discharged in stable and satisfactory condition with no further questions at time of discharge.
== END 2016-07-09 10:55 | disposition home or self-care (01) | DRG 195 ==
LOC: M ED 02:14 → M ED INP 06:22 → M PED 11:37 → M MSPAV 20:00 → OBSVTOIN 07-03 11:19
PROVIDERS: ADMIT Internal Medicine; ATTEND Family Medicine
PROC: 0S9C3ZZ Drainage of Right Knee Joint, Percutaneous Approach (ICD-10-PCS; principal; 2016-07-04)
DX: J15.4 Pneumonia due to other streptococci (principal); M11.861 Other specified crystal arthropathies, right knee; I10 Essential (primary) hypertension; E78.5 Hyperlipidemia, unspecified; E66.9 Obesity, unspecified; R26.2 Difficulty in walking, not elsewhere classified; R21 Rash and other nonspecific skin eruption; M11.862 Other specified crystal arthropathies, left knee; M11.871 Other specified crystal arthropathies, right ankle and foot; Z79.82 Long term (current) use of aspirin; Z79.899 Other long term (current) drug therapy; Z68.33 Body mass index [BMI] 33.0-33.9, adult

== ENCOUNTER → 2016-07-22 | Outpatient (CLI) | payer MEDICARE ==
[~2016-07-22] MED LIST: ALLO100T PO; AMLO5TAB2 PO; ASPI81TAEC PO; FISH1000 PO; INDO25CA PO; LISI-538 PO; META0.52 PO; PRED20TA PO; VITA-130 PO; VITA400C2 PO; VITATAB11 PO
[2016-07-22 13:08] LABS: BASO % 0.4 % (0.0-1.0); EOS # 0.5 K/mm3 (0.0-0.50); EOS % 4.5 % (0.0-3.0); LARGE UNSTAINED CELL # 0.2 K/mm3 (0.0-0.4); LARGE UNSTAINED CELL % 1.6 % (0.0-4.0); LYMPH # 2.9 K/mm3 (1.5-4.5); LYMPH % 23.8 % (24.0-44.0); MEAN CORPUSCULAR HEMOGLOBIN 30.9 pg (27.0-33.0); MEAN CORPUSCULAR HGB CONC 32.1 g/dl (32.0-36.5); MEAN CORPUSCULAR VOLUME 96.2 fl (80.0-96.0); MONO # 0.6 K/mm3 (0.0-0.8); MONO % 5.3 % (0.0-5.0); NEUTROPHILS # 7.3 K/mm3 (1.8-7.7); NEUTROPHILS % 64.4 % (36.0-66.0); PLATELET COUNT, AUTOMATED 292 k/mm3 (150-450); RED CELL DISTRIBUTION WIDTH 14.3 % (11.5-14.5); WHITE BLOOD COUNT 11.4 K/mm3 (4.0-10.0)
[2016-07-22 13:31] LABS: ALBUMIN/GLOBULIN RATIO 0.71 (1.00-1.93); ALKALINE PHOSPHATASE 78 U/L (45-117); ALT/SGPT 49 U/L (12-78); ANION GAP 7 MEQ/L (8-16); AST/SGOT 19 U/L (15-37); BILIRUBIN,TOTAL 0.6 MG/DL (0.2-1.0); BLOOD UREA NITROGEN 20 MG/DL (7-18); CALCIUM LEVEL 8.9 MG/DL (8.8-10.2); CARBON DIOXIDE LEVEL 32 MEQ/L (21-32); CHLORIDE LEVEL 105 MEQ/L (98-107); CHOLESTEROL LEVEL 182 MG/DL (<200); CREATININE FOR GFR 1.14 MG/DL (0.70-1.30); GLOMERULAR FILTRATION RATE > 60.0 (>42); GLUCOSE, FASTING 78 MG/DL (83-110); SODIUM LEVEL 144 MEQ/L (136-145); TOTAL PROTEIN 7.2 GM/DL (6.4-8.2); TRIGLYCERIDES LEVEL 117 MG/DL (<150); URIC ACID 5.7 MG/DL (3.5-7.2)
== END ==
LOC: M WUC 09:55
PROVIDERS: ATTEND Physician Assistant Medical
DX: M10.9 Gout, unspecified (principal); E66.01 Morbid (severe) obesity due to excess calories; Z79.899 Other long term (current) drug therapy

== ENCOUNTER → 2016-08-05 | Outpatient (REF) | payer MEDICARE ==
[2016-08-05 16:04] LABS: BASO % 0.4 % (0.0-1.0); EOS # 0.4 K/mm3 (0.0-0.50); EOS % 4.2 % (0.0-3.0); LARGE UNSTAINED CELL # 0.2 K/mm3 (0.0-0.4); LARGE UNSTAINED CELL % 1.8 % (0.0-4.0); LYMPH # 1.9 K/mm3 (1.5-4.5); LYMPH % 20.4 % (24.0-44.0); MEAN CORPUSCULAR HEMOGLOBIN 30.6 pg (27.0-33.0); MEAN CORPUSCULAR HGB CONC 32.4 g/dl (32.0-36.5); MEAN CORPUSCULAR VOLUME 94.5 fl (80.0-96.0); MONO # 0.6 K/mm3 (0.0-0.8); MONO % 6.9 % (0.0-5.0); NEUTROPHILS # 5.7 K/mm3 (1.8-7.7); NEUTROPHILS % 66.3 % (36.0-66.0); PLATELET COUNT, AUTOMATED 366 k/mm3 (150-450); RED CELL DISTRIBUTION WIDTH 13.6 % (11.5-14.5); WHITE BLOOD COUNT 8.6 K/mm3 (4.0-10.0)
[2016-08-05 17:10] LABS: FERRITIN 292 NG/ML (26-388); PERCENT SATURATION 11.1 % (19.7-37.4); TOTAL IRON BINDING CAPACITY 243 UG/DL (250-450)
[2016-08-05 17:17] LABS: FOLATE > 24.0 NG/ML; VITAMIN B12 LEVEL 653 PG/ML
== END ==
LOC: M SFHCADAM 13:20
PROVIDERS: ATTEND Physician Assistant Medical
DX: D64.9 Anemia, unspecified (principal)
CPT/HCPCS: 82607; 82728; 82746; 83550; 85025; G0463

== ENCOUNTER → 2016-08-11 | Outpatient (REF) | payer MEDICARE | LOC: M SFHCADAM 13:52 | PROVIDERS: ATTEND Physician Assistant Medical | DX: R35.0 Frequency of micturition (principal) | CPT/HCPCS: 81001; 87086; G0463 ==

== ENCOUNTER → 2016-08-13 | Outpatient (REF) | payer MEDICARE | LOC: M SFHCADAM 11:42 | PROVIDERS: ATTEND Physician Assistant Medical | DX: D50.9 Iron deficiency anemia, unspecified (principal) ==

== ENCOUNTER → 2016-08-20 | Outpatient (CLI) | payer MEDICARE ==
[~2016-08-20] MED LIST changes: +FERR325T3 PO; +FIBEPOW PO; +FLOM5CAP PO; +MULT1TAB10 PO
[2016-08-20 19:39] LABS: ANION GAP 5 MEQ/L (8-16); BLOOD UREA NITROGEN 17 MG/DL (7-18); CALCIUM LEVEL 8.8 MG/DL (8.8-10.2); CARBON DIOXIDE LEVEL 29 MEQ/L (21-32); CHLORIDE LEVEL 104 MEQ/L (98-107); CREATININE FOR GFR 1.12 MG/DL (0.70-1.30); GLOMERULAR FILTRATION RATE > 60.0 (>42); GLUCOSE, FASTING 90 MG/DL (83-110); POTASSIUM SERUM 4.3 MEQ/L (3.5-5.1); SODIUM LEVEL 138 MEQ/L (136-145)
== END ==
LOC: M SMT 12:03
PROVIDERS: ATTEND Nurse Practitioner Family
DX: R31.9 Hematuria, unspecified (principal); Z12.5 Encounter for screening for malignant neoplasm of prostate
CPT/HCPCS: 36415; 51798; 80048; 81001; 87086; 88108; G0103; G0463

== ENCOUNTER → 2016-08-26 | Outpatient (CLI) | payer MEDICARE ==
[~2016-08-26] MED LIST changes: +ISOVUE-370 76% 100ML VIAL (Q9967) As Ordered ONE
--- NOTE | 2016-08-26 10:04 | REP ---
CT abdomen pelvis multiphasic scanning: Scanning is initially performed without IV contrast with diaphragms to the pubic symphysis. This is followed by biphasic scanning after IV contrast, initially during the portal venous phase of enhancement and later during the delayed equilibrium phase of enhancement from the diaphragms to the pubic symphysis. There are no comparison CT studies. There is a comparison renal ultrasound dated 07/06/2016. There is an 11 x 6 mm calculus in the distal right ureter at its junction with the urinary bladder resulting in mild right hydroureter and mild right hydronephrosis. There is mild right perinephric stranding. In addition, there are parapelvic cysts in the right kidney. There are several renal cortical cysts, one in the upper pole measuring 6 mm, one anteriorly at the mid pole measuring 2.0 cm and one posteriorly at the mid pole measuring 1 cm. There is a 4 mm nonobstructive right renal calculus at the mid pole. There are two calculi in the proximal left ureter, the larger measuring 11 x 10 mm and the slightly more distal smaller measuring 7 mm. There is no left hydronephrosis. There are least six left renal calculi ranging from 12 mm to 5 mm in diameter in the upper pole, mid pole and lower pole. There are multiple left renal cortical cysts, one in the upper pole measuring 2.3 cm, one in the upper pole measuring 8. 4 mm, one at the mid pole, exophytic measuring 15 mm, one posteriorly at the mid pole measuring 12 mm, one at the lower pole anteriorly measuring 13 mm. , and one at the lower pole posteriorly measuring 8 mm. No solid renal masses are identified on the right or the left. The adrenals are unremarkable. The visualized lung ward are unremarkable. The hepatic parenchyma, gallbladder, pancreas and spleen are normal size, homogeneous and unremarkable on all phases of the study except for a subcapsular 1.8 cm cyst anteriorly in the spleen. The abdominal aorta is unremarkable except for calcified atheroma. There is no bowel distension. Mesentery is unremarkable. Pelvis: The appendix is unremarkable. There is no adenopathy or ascites. The bladder is incompletely distended but otherwise unremarkable except for the distal right ureteral calculus. There is degenerative disc disease throughout the lower thoracic spine and lumbar spine. Impression: Bilateral ureteral calculi as described. Bilateral renal calculi as described. Bilateral renal cysts as described. No solid renal masses are identified. Splenic cyst. Multilevel degenerative disc disease. Signed by Darren Gil MD 08/26/2016 09:56 A
== END ==
LOC: M RAD 07:52
PROVIDERS: ATTEND Nurse Practitioner Family
DX: N20.1 Calculus of ureter (principal); N28.1 Cyst of kidney, acquired; M51.34 Other intervertebral disc degeneration, thoracic region; M51.36 Other intervertebral disc degeneration, lumbar region; R31.9 Hematuria, unspecified
CPT/HCPCS: 74178; G0463; Q9967

== ENCOUNTER → 2016-09-04 | Outpatient (CLI) | payer MEDICARE ==
[~2016-09-04] MED LIST changes: -FERR325T3 PO; -FIBEPOW PO; -FLOM5CAP PO; -ISOVUE-370 76% 100ML VIAL (Q9967) As Ordered ONE; -MULT1TAB10 PO
[2016-09-04 18:50] LABS: INR 0.96
[2016-09-04 19:07] LABS: MEAN CORPUSCULAR HEMOGLOBIN 30.5 pg (27.0-33.0); MEAN CORPUSCULAR HGB CONC 32.8 g/dl (32.0-36.5); RED CELL DISTRIBUTION WIDTH 14.7 % (11.5-14.5); WHITE BLOOD COUNT 8.5 K/mm3 (4.0-10.0)
[2016-09-04 19:09] LABS: ALBUMIN 3.4 GM/DL (3.2-5.2); ALBUMIN/GLOBULIN RATIO 0.83 (1.00-1.93); BILIRUBIN,TOTAL 0.4 MG/DL (0.2-1.0); CALCIUM LEVEL 9.2 MG/DL (8.8-10.2); CREATININE FOR GFR 1.29 MG/DL (0.70-1.30); GLOMERULAR FILTRATION RATE 58.6 (>42); POTASSIUM SERUM 4.6 MEQ/L (3.5-5.1); TOTAL PROTEIN 7.5 GM/DL (6.4-8.2)
--- NOTE | 2016-09-04 22:47 | ECGEPIP ---
Stationary ECG Study [facility] Test Date: 2016-09-04 Pat Name: JOSR GRIFFIN Department: Room: - Gender: M Corporate Associate Attorney: [facility] : 1945 Requested By: Sophia Lorenz Order Number: [id number] Reading MD: Weston Arboleda Measurements Intervals [place] Rate: 58 P: 33 CO: 140 QRS: 5 QRSD: 94 T: 12 QT: 422 QTc: 416 Interpretive Statements SINUS BRADYCARDIA WITH SINUS ARRHYTHMIA Slow precordial R-wave progression; body habitus versus pulmonary disease Rule out prior septal injury Marginal nonspecific ST/T-wave abnormalities No prior tracing for comparison Clinical correlation advised. Electronically Signed On 09-04-2016 22:47:06 EDT by Weston Arboleda
== END ==
LOC: M LAB 17:37
PROVIDERS: ATTEND Nurse Practitioner Family
DX: Z01.818 Encounter for other preprocedural examination (principal); Z79.899 Other long term (current) drug therapy

== ENCOUNTER → 2016-09-09 | Outpatient (CLI) | payer MEDICARE ==
[~2016-09-09] MED LIST changes: +CVS0.52C PO; +FERR325T3 PO; +FIBEPOW PO; +FLOM5CAP PO; +MULT1TAB10 PO
--- NOTE | 2016-09-09 11:41 | REP ---
Prostate sonography: History: Elevated PSA. Sonographic findings: Trans rectal prostate sonography demonstrates unremarkable seminal vesicles. Prostate gland is heterogeneously enlarged with calcifications and cystic changes noted. Glandular dimensions are measured at 5.4 x 3.9 x 4.8 cm with a calculated glandular volume of 51.9 ml. There is a 0.5 cm nodule in the right side of the prostate. Transrectal sonographic guidance provided to Dr. Watson who performed trans rectal ultrasound guided needle biopsy procedure . Signed by Willian Linares MD 09/09/2016 11:33 A
== END ==
LOC: M SMT PRO 08:31
PROVIDERS: ATTEND Urology
DX: R97.20 Elevated prostate specific antigen [PSA] (principal); N41.9 Inflammatory disease of prostate, unspecified
CPT/HCPCS: 55700; 76872; 76942; G0416

== ENCOUNTER → 2016-09-12 | Outpatient (REF) | payer MEDICARE | LOC: M SMT 12:51 | PROVIDERS: ATTEND Urology | DX: Z01.818 Encounter for other preprocedural examination (principal); N20.0 Calculus of kidney | CPT/HCPCS: 87086; G0463 ==

== ENCOUNTER → 2016-09-16 | Outpatient (CLI) | payer MEDICARE ==
[~2016-09-16] MED LIST changes: -CVS0.52C PO
--- NOTE | 2016-09-16 15:08 | REP ---
Chest two views HISTORY: Preop Comparison: 07/04/2016 The lungs are clear. The heart is normal in size. The thoracic aorta is tortuous. The pulmonary vasculature is normal in appearance. The bony structure is intact. IMPRESSION: No acute disease. Signed by Roberto Hernández MD 09/16/2016 03:00 P
== END ==
LOC: M ADAMS 14:34
PROVIDERS: ATTEND Physician Assistant Medical
DX: Z01.818 Encounter for other preprocedural examination (principal); N20.1 Calculus of ureter

== ENCOUNTER → 2016-09-18 | Day surgery (SDC) | payer MEDICARE ==
[~2016-09-18] VITALS: Ht 167.6 cm; Wt 99.8 kg
[~2016-09-18] MED LIST changes: +CONRAY-60 60% 50ML VIAL (Q9961) As Ordered ONE; +GLYCOPYRROLATE INJ 0.2 MG/ML 2 ML VIAL As Ordered ONE; +LIDOCAINE 2% INJ 100 MG/5 ML SDV (FOR ANES.) As Ordered ONE; +LR 1,000 ML IV SCH; +MIDAZOLAM INJ 2 MG/2 ML VIAL (J2250) As Ordered ONE; +NEOSTIGMINE 1MG/ML 5 ML SYRINGE (J2710) As Ordered ONE; +ONDANSETRON 4MG/2ML VIAL (J2405) As Ordered ONE; +ONDANSETRON 4MG/2ML VIAL (J2405) IV PRN; +PERCOCET 5MG/325MG TAB PO PRN; +PHENYLEPHRINE INJ 10MG/ML VIAL (J2370) As Ordered ONE; +PROPOFOL 200 MG/20 ML VIAL As Ordered ONE; +ROCURONIUM BROMIDE 50 MG/5 ML VIAL As Ordered ONE; +dexameTHASONE 4 MG/ML 1ML VIAL (J1100) As Ordered ONE; +fentaNYL 100 MCG/2 ML INJECTION (J3010) IV PRN; +fentaNYL 250 MCG/5 ML INJECTION (J3010) As Ordered ONE; +oxyBUTYnin 5 MG TAB PO PRN
--- NOTE | 2016-09-18 14:26 | REP ---
C-ARM VIEWS DURING RIGHT RETROGRADE PYELOGRAM: Two C-arm views of the abdomen demonstrate injection of contrast into the right ureter. A wire is passed into the right ureter. A doubled pigtail stent is placed in each ureter. Proximal ends are coiled in the renal pelvis bilaterally and the distal ends are coiled in the region of the urinary bladder. 24 seconds of fluoroscopy time utilized. Signed by Darren Pruitt MD 09/18/2016 04:52 P
[2016-09-18 14:55] VITALS: BP 140/84
--- NOTE | 2016-09-19 07:55 | RO ---
DATE OF PROCEDURE: 09/18/2016 PREPROCEDURE DIAGNOSIS: Bilateral nephrolithiasis. POSTPROCEDURE DIAGNOSIS: Bilateral nephrolithiasis. PROCEDURE: Cystoscopy, bilateral ureteroscopy with laser lithotripsy and basket extraction of stones, bilateral retrograde pyelogram with intraoperative interpretation of images, bilateral ureteral stent placement. SURGEON: Dr. Zeke Watson DISINTEGRATOR OPERATOR: None. ANESTHESIA: General. OPERATIVE INDICATIONS: This is a 71-year-old male who was found to have a 1 cm obstructing right ureterovesical junction stone as well as several stones measuring up to 1 cm in the left kidney. He is brought to the operating room today for treatment. DESCRIPTION OF PROCEDURE: The patient was brought to the operating room where general anesthesia was induced. Prophylactic antibiotics were infused. He was then placed in dorsal lithotomy position, prepped and draped in the usual sterile fashion. A rigid cystoscope was then inserted into the urethral meatus and advanced into the bladder. A wire was then advanced up the right collecting system and the cystoscope was removed. We then went up the right ureter with a short semirigid ureteroscope and at the area of the ureterovesical junction, a 1 cm stone was seen. The stone was then fragmented into several smaller pieces using 200 Micron laser fiber and all the fragments were removed using a basket. Once satisfied all the stones had been removed, a retrograde pyelogram was performed and was notable for mild right hydroureteronephrosis down to the level of the bladder. At this point, the previously placed wire was utilized to advance a #6 Icelandic x 22-32 cm JJ ureteral stent up to the right collecting system. The wire was then removed and there were adequate curls to the stent in the right renal pelvis and in the bladder. At this point, the wire was advanced up the left collecting system and then the ureteral access sheath advanced up the left collecting system. The wire was then secured to the drape. I then went up the ureteral access sheath with a flexible ureteroscope and within the left kidney, there were several stones measuring approximately 1 cm in size. I fragmented the majority of these stones into smaller fragments using a 200 Micron laser fiber and then removed them using a basket. I spent a significant amount of time doing this. Once done, there were still two large stones remaining. Considering the amount of time spent fragmenting the other stones and the fact that visibility was not very good at this point, the decision was made to stop. A retrograde pyelogram was performed and was notable for no extravasation. At this point, the ureteral access sheath was removed and the previously placed wire was utilized to advance a #6-Icelandic x 22-32 cm JJ ureteral stone up into the left collecting system. The wire was then removed and there were adequate curls of the stent in the left renal pelvis and in the bladder. At this point, the bladder was emptied of all fluid and this marked the conclusion of the procedure. The patient was then taken out of dorsal lithotomy position, awakened from anesthesia and transported to the recovery room in stable condition. ESTIMATED BLOOD LOSS: 0 mL. COMPLICATIONS: None. SPECIMENS: Kidney stone fragments. PLAN: The patient will followup in the clinic in a few weeks and will get an x-ray before hand. He will likely need another surgery, most likely extracorporeal shock wave lithotripsy to fragment his remaining stones in the left kidney and his right ureteral stent can be removed at that time. Once confirmed that all fragments have passed, we will remove the left stent in the office. SEA
== END | disposition home or self-care (01) ==
LOC: M SDC 08:04
PROVIDERS: ATTEND Urology
DX: N20.0 Calculus of kidney (principal); R97.20 Elevated prostate specific antigen [PSA]; I10 Essential (primary) hypertension; M10.9 Gout, unspecified; E66.01 Morbid (severe) obesity due to excess calories; B35.1 Tinea unguium; E78.1 Pure hyperglyceridemia; N40.0 Benign prostatic hyperplasia without lower urinary tract symptoms; R06.83 Snoring; Z91.040 Latex allergy status; Z79.899 Other long term (current) drug therapy; Z79.82 Long term (current) use of aspirin; Z90.01 Acquired absence of eye
CPT/HCPCS: 52356; 74420; 82360; 88300; C1726; C1894; C2617; J0690; J1100; J2250; J2370; J2405; J2710; J3010; Q9961

== ENCOUNTER → 2016-09-26 | Outpatient (REF) | payer MEDICARE ==
[~2016-09-26] MED LIST changes: -CONRAY-60 60% 50ML VIAL (Q9961) As Ordered ONE; +CVS0.52C PO; -GLYCOPYRROLATE INJ 0.2 MG/ML 2 ML VIAL As Ordered ONE; -LIDOCAINE 2% INJ 100 MG/5 ML SDV (FOR ANES.) As Ordered ONE; -LR 1,000 ML IV SCH; -MIDAZOLAM INJ 2 MG/2 ML VIAL (J2250) As Ordered ONE; -NEOSTIGMINE 1MG/ML 5 ML SYRINGE (J2710) As Ordered ONE; -ONDANSETRON 4MG/2ML VIAL (J2405) As Ordered ONE; -ONDANSETRON 4MG/2ML VIAL (J2405) IV PRN; -PERCOCET 5MG/325MG TAB PO PRN; -PHENYLEPHRINE INJ 10MG/ML VIAL (J2370) As Ordered ONE; -PROPOFOL 200 MG/20 ML VIAL As Ordered ONE; -ROCURONIUM BROMIDE 50 MG/5 ML VIAL As Ordered ONE; -dexameTHASONE 4 MG/ML 1ML VIAL (J1100) As Ordered ONE; -fentaNYL 100 MCG/2 ML INJECTION (J3010) IV PRN; -fentaNYL 250 MCG/5 ML INJECTION (J3010) As Ordered ONE; -oxyBUTYnin 5 MG TAB PO PRN
== END ==
LOC: M SMT 12:45
PROVIDERS: ATTEND Nurse Practitioner Family
DX: N20.0 Calculus of kidney (principal)

== ENCOUNTER → 2016-10-02 | Day surgery (SDC) | payer MEDICARE ==
[~2016-10-02] VITALS: Ht 167.6 cm; Wt 98.9 kg
[~2016-10-02] MED LIST changes: +LIDOCAINE 2% 5ML JELLY UROJET As Ordered ONE; +LIDOCAINE 2% INJ 100 MG/5 ML SDV (FOR ANES.) As Ordered ONE; +LR 1,000 ML IV SCH; +PERCOCET 5MG/325MG TAB PO PRN; +PHENYLephrine HCL 500 MCG/5 ML (100MCG/ML) SYRINGE (J2370) As Ordered ONE; +PROPOFOL 200 MG/20 ML VIAL As Ordered ONE; +ceFAZolin SOD 1 GM in D5W MINI-BAG PLUS 50 ML IV ONE; +ePHEDrine SULFATE 25 MG/5 ML(5MG/ML) SYRINGE As Ordered ONE
[2016-10-02 09:20] VITALS: BP 133/62
--- NOTE | 2016-10-02 10:15 | REP ---
KUB ABDOMEN AND PELVIS: KUB film of the abdomen and pelvis is performed. Bilateral ureteral stents are seen with proximal ends coiled in the region of the renal pelvis bilaterally and the distal ends coiled in the region of the urinary bladder. There are multiple calculi in the left renal collecting system both superiorly and inferiorly. The largest appears to be in the upper pole region measuring approximately 1.1 cm in diameter. Bowel gas pattern is normal. There are moderate degenerative changes of the spine. IMPRESSION: Bilateral ureteral stents appear to be in good position. Multiple intrarenal calculi left kidney. Signed by Darren Pruitt MD 10/02/2016 04:19 P
--- NOTE | 2016-10-03 13:17 | RO ---
DATE OF PROCEDURE: 10/02/2016 PREPROCEDURE DIAGNOSIS: Kidney stones. POSTPROCEDURE DIAGNOSIS: Kidney stones. PROCEDURE: Left Extracorporeal shock wave lithotripsy (ESWL) lithotripsy, cystoscopy, removal of right ureteral stent. SURGEON: Zeke Watson MD SANDBLASTER SUPERVISOR: None. ANESTHESIA: Monitored anesthesia care (MAC). OPERATIVE INDICATIONS: This is a 68-year-old male with a history of bilateral nephrolithiasis, who recently underwent a cystoscopy, bilateral ureteroscopy with lithotripsy and bilateral stent placement. All the stones from the right side were removed. He had some residual stones in the left kidney. He was brought to the operating room today to fragment the stones in the left kidney and remove his right ureteral stent. DESCRIPTION OF PROCEDURE: The patient was brought to the operating room and MAC anesthesia was administered. Prophylactic antibiotics were infused. He was then placed in the supine position and prepped and draped in the usual sterile fashion. At this point, a cystoscope was inserted into the bladder and the right ureteral stent was seen. The stent was then grasped and removed from the right ureter and bladder intact. At this point, extracorporeal shock wave lithotripsy was then performed on the left sided kidney stones. There were two large stones in the mid pole of the kidney. Fluoroscopy was utilized to monitor stone position and fragmentation throughout the procedure. Shockwaves were then delivered to the kidney stone, ungated. There were no arrhythmias. After 2500 shocks, the stones did appear to fragment pretty well. At this point, the procedure was concluded. The patient was then awakened from anesthesia and transported to the recovery room in stable condition. ESTIMATED BLOOD LOSS: 0 mL. COMPLICATIONS: None. SPECIMENS: None. PLAN: The patient will followup in the clinic in a few weeks with imaging prior to assess for residual stone burden. We will remove the stent at that time. SEA
== END | disposition home or self-care (01) ==
LOC: M SDC 07:02
PROVIDERS: ATTEND Urology
DX: N20.0 Calculus of kidney (principal); I10 Essential (primary) hypertension; M10.9 Gout, unspecified; E66.9 Obesity, unspecified; E78.1 Pure hyperglyceridemia; D64.9 Anemia, unspecified; M12.9 Arthropathy, unspecified; N40.0 Benign prostatic hyperplasia without lower urinary tract symptoms; B35.1 Tinea unguium; Z79.899 Other long term (current) drug therapy; Z79.82 Long term (current) use of aspirin
CPT/HCPCS: 50590; 52310; 74000; J0690; J2370

== ENCOUNTER → 2016-11-11 | Outpatient (CLI) | payer MEDICARE ==
[~2016-11-11] MED LIST changes: -LIDOCAINE 2% 5ML JELLY UROJET As Ordered ONE; -LIDOCAINE 2% INJ 100 MG/5 ML SDV (FOR ANES.) As Ordered ONE; -LR 1,000 ML IV SCH; -PERCOCET 5MG/325MG TAB PO PRN; -PHENYLephrine HCL 500 MCG/5 ML (100MCG/ML) SYRINGE (J2370) As Ordered ONE; -PROPOFOL 200 MG/20 ML VIAL As Ordered ONE; -VITA-130 PO; -VITA400C2 PO; +VITA400C7 PO; +VITA500T PO; -ceFAZolin SOD 1 GM in D5W MINI-BAG PLUS 50 ML IV ONE; -ePHEDrine SULFATE 25 MG/5 ML(5MG/ML) SYRINGE As Ordered ONE
--- NOTE | 2016-11-11 14:47 | REP ---
Supine abdomen single AP view: Comparison is 10/02/2016. The previous right ureteral stent has been removed. There are faintly visible calcification superimposed over the lower pole of the right kidney. This could be artifact from superimposed bowel. There is a left ureteral stent with the proximal and distal pigtails in satisfactory positions, unchanged from the prior study. There is a large calcification in the lower pole of the left kidney. No other left renal calculi are identified. The bowel gas pattern is normal. There is scoliosis and multilevel advanced degenerative disc disease in the lumbar spine. Signed by Darren Gil MD 11/11/2016 02:38 P
== END ==
LOC: M SMT 14:14
PROVIDERS: ATTEND Urology
DX: N20.0 Calculus of kidney (principal)

== ENCOUNTER → 2017-04-08 | Outpatient (CLI) | payer MEDICARE ==
[2017-04-08 10:03] LABS: BASO % 0.4 % (0.0-1.0); EOS # 0.2 10^3/uL (0.0-0.50); EOS % 3.4 % (0.0-3.0); IMMATURE GRANULOCYTE % 0.4 % (0-0); LYMPH # 1.6 10^3/uL (1.5-4.5); LYMPH % 22.2 % (24.0-44.0); MEAN CORPUSCULAR HEMOGLOBIN 30.3 pg (27.0-33.0); MEAN CORPUSCULAR HGB CONC 31.7 g/dl (32.0-36.5); MEAN CORPUSCULAR VOLUME 95.6 fl (80.0-96.0); MONO # 0.6 10^3/uL (0.0-0.8); MONO % 7.9 % (0.0-5.0); NEUTROPHILS # 4.7 10^3/uL (1.8-7.7); NEUTROPHILS % 65.7 % (36.0-66.0); PLATELET COUNT, AUTOMATED 237 10^3/uL (150-450); RED CELL DISTRIBUTION WIDTH 13.5 % (11.5-14.5); WHITE BLOOD COUNT 7.1 10^3/uL (4.0-10.0)
[2017-04-08 10:32] LABS: PERCENT SATURATION 40.1 % (19.7-50.0)
== END ==
LOC: M WUC 08:22
PROVIDERS: ATTEND Physician Assistant Medical
DX: D50.9 Iron deficiency anemia, unspecified (principal)

== ENCOUNTER → 2017-04-14 | Outpatient (CLI) | payer MEDICARE ==
--- NOTE | 2017-04-14 09:45 | REP ---
Clinical: Chronic shoulder pain. Technique: Internal rotation, external rotation, and Y view of the right shoulder. Findings: Mild cortical irregularity at the acromioclavicular joint and glenoid rim. No overt osteoarthritic degenerative changes are appreciated. No significant osteophytosis, periarticular calcifications, or soft tissue swelling. Subacromial space is normal. Impression: Mild age-related changes. Signed by Maik De Los Santos MD 04/14/2017 09:37 A
== END ==
LOC: M ADAMS 08:59
PROVIDERS: ATTEND Physician Assistant Medical
DX: M25.511 Pain in right shoulder (principal)

== ENCOUNTER → 2017-05-13 | Outpatient (CLI) | payer MEDICARE ==
--- NOTE | 2017-05-13 22:56 | REP ---
KUB ABDOMEN AND PELVIS: KUB film of abdomen and pelvis is performed and compared to prior study of 11/11/2016. Several tiny calcifications overlie the right renal shadow both superiorly and inferiorly as well as in the mid aspect. There is a cluster of calcifications overlying the lower pole of the left kidney. The largest measures about 7 mm in maximum diameter. The previously noted left ureteral stent has been removed. Bowel gas pattern is normal. There are moderate degenerative changes of the spine and hips. IMPRESSION: Bilateral renal calcifications. Signed by Darren Pruitt MD 05/14/2017 08:32 P
== END ==
LOC: M SMT 14:33
PROVIDERS: ATTEND Urology
DX: N20.0 Calculus of kidney (principal)

== ENCOUNTER → 2017-09-14 | Outpatient (CLI) | payer MEDICARE ==
[2017-09-14 12:15] LABS: BASO % 0.6 % (0.0-1.0); EOS # 0.3 10^3/uL (0.0-0.50); EOS % 3.7 % (0.0-3.0); HEMATOCRIT 44.9 % (42.0-52.0); HEMOGLOBIN 14.6 g/dl (13.5-17.5); IMMATURE GRANULOCYTE % 0.3 % (0-3.0); LYMPH # 1.6 10^3/uL (1.5-4.5); LYMPH % 22.7 % (24.0-44.0); MEAN CORPUSCULAR HEMOGLOBIN 31.1 pg (27.0-33.0); MEAN CORPUSCULAR HGB CONC 32.5 g/dl (32.0-36.5); MEAN CORPUSCULAR VOLUME 95.5 fl (80.0-96.0); MONO # 0.7 10^3/uL (0.0-0.8); MONO % 9.4 % (0.0-5.0); NEUTROPHILS # 4.4 10^3/uL (1.8-7.7); NEUTROPHILS % 63.3 % (36.0-66.0); PLATELET COUNT, AUTOMATED 207 10^3/uL (150-450); RED CELL DISTRIBUTION WIDTH 13.6 % (11.5-14.5)
[2017-09-14 12:59] LABS: ALBUMIN 3.6 GM/DL (3.2-5.2); ALBUMIN/GLOBULIN RATIO 1.03 (1.00-1.93); ALKALINE PHOSPHATASE 77 U/L (45-117); ALT/SGPT 24 U/L (12-78); ANION GAP 2 MEQ/L (8-16); AST/SGOT 18 U/L (7-37); BILIRUBIN,TOTAL 0.8 MG/DL (0.2-1.0); BLOOD UREA NITROGEN 20 MG/DL (7-18); CARBON DIOXIDE LEVEL 33 MEQ/L (21-32); CHLORIDE LEVEL 108 MEQ/L (98-107); CHOLESTEROL LEVEL 196 MG/DL (<200); CHOLESTEROL RISK RATIO 4.083 (<5); CREATININE FOR GFR 1.09 MG/DL (0.70-1.30); FERRITIN 157 NG/ML (26-388); GLOMERULAR FILTRATION RATE > 60.0 (>42); GLUCOSE, FASTING 87 MG/DL (70-100); HDL CHOLESTEROL 48 MG/DL (>40); IRON (FE) 124 UG/DL (65-175); LDL CHOLESTEROL 128.6 MG/DL (<100); NON-HDL-C 148 MG/DL; POTASSIUM SERUM 4.4 MEQ/L (3.5-5.1); SODIUM LEVEL 143 MEQ/L (136-145); TOTAL PROTEIN 7.1 GM/DL (6.4-8.2); TRIGLYCERIDES LEVEL 97 MG/DL (<150)
[2017-09-14 13:05] LABS: MALB URINE SIEMENS 17.2 MG/L; MAU/CREAT RATIO 14.9 MCG/MG (0.0-30.0)
[2017-09-14 15:25] LABS: ESTIMATED AVERAGE GLUCOSE 114 MG/DL (60-110); HEMOGLOBIN A1c 5.6 %
== END ==
LOC: M WUC 08:22
DX: E78.5 Hyperlipidemia, unspecified (principal); D50.9 Iron deficiency anemia, unspecified; R73.01 Impaired fasting glucose
CPT/HCPCS: 83540

== ENCOUNTER → 2017-12-02 | Outpatient (CLI) | payer MEDICARE | LOC: M SMT 08:20 | DX: N20.0 Calculus of kidney (principal) | CPT/HCPCS: 74018; G0463 ==

== ENCOUNTER → 2018-06-03 | Outpatient (CLI) | payer MEDICARE ==
[~2018-06-03] MED LIST changes: -AMLO5TAB2 PO; +AMLO5TAB6 PO; +FLOM0.4C39 PO; -FLOM5CAP PO
--- NOTE | 2018-06-03 14:38 | REP ---
KUB one-view History: Kidney stones Comparison: 12/02/2017 A small amount of air is present in the intestine. There are no air-fluid levels or dilated loops of intestine. There is no pneumoperitoneum. Calcifications are present in the kidneys consistent with nephrolithiasis. Impression: 1. Nonspecific bowel gas pattern. 2. Bilateral nephrolithiasis. Electronically Signed by Roberto Hernández MD 06/03/2018 02:23 P
== END ==
LOC: M SMT 13:54
PROVIDERS: ATTEND Nurse Practitioner Family
DX: N20.0 Calculus of kidney (principal)
CPT/HCPCS: 74018; G0463

== ENCOUNTER → 2018-09-16 | Outpatient (CLI) | payer MEDICARE ==
[2018-09-16 09:54] LABS: BASO # 0.1 10^3/uL (0.0-0.2); BASO % 0.7 % (0.0-1.0); EOS # 0.3 10^3/uL (0.0-0.50); EOS % 3.6 % (0.0-3.0); HEMOGLOBIN 14.6 g/dl (13.5-17.5); LYMPH % 26.7 % (24.0-44.0); MEAN CORPUSCULAR HEMOGLOBIN 30.7 pg (27.0-33.0); MEAN CORPUSCULAR HGB CONC 32.4 g/dl (32.0-36.5); MEAN CORPUSCULAR VOLUME 94.7 fl (80.0-96.0); MONO # 0.7 10^3/uL (0.0-0.8); MONO % 9.3 % (0.0-5.0); NEUTROPHILS # 4.5 10^3/uL (1.8-7.7); PLATELET COUNT, AUTOMATED 191 10^3/uL (150-450); RED BLOOD COUNT 4.75 10^6/uL (4.30-6.10); WHITE BLOOD COUNT 7.6 10^3/uL (4.0-10.0)
[2018-09-16 10:01] LABS: ALBUMIN 3.7 GM/DL (3.2-5.2); ALT/SGPT 36 U/L (12-78); BILIRUBIN,TOTAL 0.6 MG/DL (0.2-1.0); BLOOD UREA NITROGEN 17 MG/DL (7-18); CALCIUM LEVEL 8.7 MG/DL (8.8-10.2); CARBON DIOXIDE LEVEL 29 MEQ/L (21-32); CHLORIDE LEVEL 108 MEQ/L (98-107); CHOLESTEROL LEVEL 193 MG/DL (<200); CHOLESTEROL RISK RATIO 4.825 (<5); CREATININE FOR GFR 1.06 MG/DL (0.70-1.30); FERRITIN 211 NG/ML (26-388); GLOMERULAR FILTRATION RATE > 60.0 (>42); GLUCOSE, FASTING 85 MG/DL (70-100); HDL CHOLESTEROL 40 MG/DL (>40); IRON (FE) 135 UG/DL (65-175); LDL CHOLESTEROL 120 MG/DL (<100); NON-HDL-C 153 MG/DL; PERCENT SATURATION 50.4 % (19.7-50.0); POTASSIUM SERUM 4.7 MEQ/L (3.5-5.1); SODIUM LEVEL 141 MEQ/L (136-145); TOTAL IRON BINDING CAPACITY 268 UG/DL (250-450); TOTAL PROTEIN 6.9 GM/DL (6.4-8.2); TRIGLYCERIDES LEVEL 164 MG/DL (<150)
== END ==
LOC: M WUC 08:14
PROVIDERS: ATTEND Physician Assistant Medical
DX: I10 Essential (primary) hypertension (principal); E66.01 Morbid (severe) obesity due to excess calories; E78.5 Hyperlipidemia, unspecified; D50.9 Iron deficiency anemia, unspecified; M10.9 Gout, unspecified

== ENCOUNTER → 2019-04-04 | Outpatient (CLI) | payer MEDICARE ==
[~2019-04-04] MED LIST changes: +INDO-16 PO; -INDO25CA PO
[2019-04-04 09:41] LABS: BASO % 0.4 % (0.0-1.0); EOS # 0.2 10^3/uL (0.0-0.5); EOS % 3.2 % (0.0-3.0); HEMATOCRIT 43.8 % (42.0-52.0); LYMPH # 1.8 10^3/uL (1.5-5.0); LYMPH % 24.1 % (24.0-44.0); MEAN CORPUSCULAR HEMOGLOBIN 31.1 pg (27.0-33.0); MEAN CORPUSCULAR VOLUME 97.3 fl (80.0-96.0); MONO # 0.7 10^3/uL (0.0-0.8); MONO % 8.8 % (0.0-5.0); NEUTROPHILS # 4.8 10^3/uL (1.5-8.5); NEUTROPHILS % 63.1 % (36.0-66.0); PLATELET COUNT, AUTOMATED 196 10^3/uL (150-450); WHITE BLOOD COUNT 7.6 10^3/uL (4.0-10.0)
[2019-04-04 10:03] LABS: HEMOGLOBIN A1c 5.6 %
[2019-04-04 10:24] LABS: ALBUMIN 3.3 GM/DL (3.2-5.2); ALT/SGPT 28 U/L (12-78); BILIRUBIN,TOTAL 0.7 MG/DL (0.2-1.0); BLOOD UREA NITROGEN 19 MG/DL (7-18); CALCIUM LEVEL 8.5 MG/DL (8.8-10.2); CARBON DIOXIDE LEVEL 31 MEQ/L (21-32); CHLORIDE LEVEL 109 MEQ/L (98-107); CHOLESTEROL LEVEL 155 MG/DL (<200); CHOLESTEROL RISK RATIO 4.078 (<5); CREATININE FOR GFR 1.06 MG/DL (0.70-1.30); FERRITIN 208 NG/ML (26-388); GLOMERULAR FILTRATION RATE > 60.0 (>42); GLUCOSE, FASTING 80 MG/DL (70-100); HDL CHOLESTEROL 38 MG/DL (>40); IRON (FE) 114 UG/DL (65-175); LDL CHOLESTEROL 81 MG/DL (<100); NON-HDL-C 117 MG/DL; PERCENT SATURATION 42.7 % (19.7-50.0); POTASSIUM SERUM 4.6 MEQ/L (3.5-5.1); SODIUM LEVEL 145 MEQ/L (136-145); TOTAL IRON BINDING CAPACITY 267 UG/DL (250-450); TOTAL PROTEIN 6.5 GM/DL (6.4-8.2); TRIGLYCERIDES LEVEL 179 MG/DL (<150)
== END ==
LOC: M WUC 08:11
PROVIDERS: ATTEND Physician Assistant Medical
DX: I10 Essential (primary) hypertension (principal); E66.01 Morbid (severe) obesity due to excess calories; D50.9 Iron deficiency anemia, unspecified; M10.9 Gout, unspecified; E78.5 Hyperlipidemia, unspecified; Z79.899 Other long term (current) drug therapy

== ENCOUNTER → 2019-04-18 | Outpatient (CLI) | payer MEDICARE ==
--- NOTE | 2019-04-18 21:10 | ECHO ---
DATE OF PROCEDURE: 04/18/2019 REFERRING PROVIDER: Sarai Hernández INDICATION: Edema. Height 172 cm, weight 112 kg. DIMENSIONS: IVS: 1.3 LV: 4.5 LVPW: 1.3 LA: 5.0 Aorta: 3.4 Mitral E wave velocity: 64 A wave: 39 E prime septal: 4.1 E prime lateral: 4.2 FINDINGS: The study is very limited technical quality with very poor visualization. The patient is in sinus rhythm. Left ventricle is normal size and grossly has preserved systolic function. I cannot specify ejection fraction, but it is going to be normal or near normal. Mild left ventricular hypertrophy (LVH) is present. Right ventricle is poorly seen but appears grossly normal. Left atrium is severely enlarged. Right atrium was poorly visualized. Aortic valve is sclerotic but mobility seems preserved. Mitral and tricuspid valves appear grossly normal. Pulmonic valve was not seen. No pericardial effusion is noted. Inferior vena cava was not seen. Aortic root is normal. Aortic arch and abdominal aorta were not visualized. Doppler interrogation reveals no aortic stenosis or insufficiency. There is trace mitral and trace tricuspid insufficiency. I am unable to estimate pulmonary artery pressure. The highest documented gradient across tricuspid valve was 29 mmHg, so assuming normal central venous pressure (CVP) that would correspond to mild pulmonary hypertension. Mitral inflow pattern and tissue Doppler imaging of mitral annulus revealed grade 2 diastolic dysfunction but quality of recording is poor. CONCLUSIONS: 1. Study is of poor technical quality. 2. Normal LV size with mild LVH and probably normal LV systolic function and grade 2 diastolic dysfunction. 3. No hemodynamically significant valvular disease. 4. Unable to estimate central venous pressure but at least mild pulmonary hypertension. COMMENT: Subacute bacterial endocarditis (SBE) prophylaxis is not recommended.
== END ==
LOC: M CARPUL 08:35
PROVIDERS: ATTEND Physician Assistant Medical
DX: R60.1 Generalized edema (principal)

== ENCOUNTER → 2019-04-29 | Outpatient (REF) | payer MEDICARE ==
[2019-04-29 16:56] LABS: CALCIUM LEVEL 9.7 MG/DL (8.8-10.2); CREATININE FOR GFR 1.49 MG/DL (0.70-1.30); GLOMERULAR FILTRATION RATE 49.2 (>42); POTASSIUM SERUM 4.4 MEQ/L (3.5-5.1)
== END ==
LOC: M SFHCADAM 14:15
PROVIDERS: ATTEND Physician Assistant Medical
DX: R60.1 Generalized edema (principal)
CPT/HCPCS: 80048; G0463

== ENCOUNTER → 2019-10-27 | Outpatient (REF) | payer MEDICARE ==
[~2019-10-27] MED LIST changes: +DEXT350P PO; -FIBEPOW PO; +VITA-243 PO; -VITA500T PO
[2019-10-27 13:10] LABS: BASO % 0.4 % (0.0-1.0); EOS # 0.3 10^3/uL (0.0-0.5); HEMATOCRIT 41.5 % (42.0-52.0); HEMOGLOBIN 13.3 g/dl (13.5-17.5); LYMPH # 1.9 10^3/uL (1.5-5.0); LYMPH % 27.7 % (24.0-44.0); MEAN CORPUSCULAR HEMOGLOBIN 31.4 pg (27.0-33.0); MEAN CORPUSCULAR VOLUME 97.9 fl (80.0-96.0); MONO # 0.7 10^3/uL (0.0-0.8); NEUTROPHILS # 3.7 10^3/uL (1.5-8.5); NEUTROPHILS % 55.5 % (36.0-66.0); PLATELET COUNT, AUTOMATED 211 10^3/uL (150-450); RED BLOOD COUNT 4.24 10^6/uL (4.30-6.10); WHITE BLOOD COUNT 6.8 10^3/uL (4.0-10.0)
[2019-10-27 13:46] LABS: ALBUMIN 3.6 GM/DL (3.2-5.2); BILIRUBIN,TOTAL 0.5 MG/DL (0.2-1.0); CALCIUM LEVEL 9.2 MG/DL (8.8-10.2); CHOLESTEROL RISK RATIO 4.536 (<5); CREATININE FOR GFR 1.44 MG/DL (0.70-1.30); GLOMERULAR FILTRATION RATE 51.2 (>42); PERCENT SATURATION 27.6 % (19.7-50.0); THYROID STIMULATING HORMONE 1.79 uIU/ML (0.358-3.740)
== END ==
LOC: M SFHCADAM 08:25
PROVIDERS: ATTEND Physician Assistant Medical
DX: M10.9 Gout, unspecified (principal); E78.5 Hyperlipidemia, unspecified; E78.1 Pure hyperglyceridemia; D50.9 Iron deficiency anemia, unspecified; R73.01 Impaired fasting glucose

== ENCOUNTER → 2019-11-10 | Outpatient (CLI) | payer MEDICARE ==
[~2019-11-10] MED LIST changes: +AMLO1TAB24 PO; -AMLO5TAB6 PO; -LISI-538 PO; +LISI20TA33 PO
--- NOTE | 2019-11-10 10:31 | REPPI ---
KUB: Two views. HISTORY: Kidney stones. Comparison study June 03, 2018. FINDINGS: There are multiple calcific densities projecting over the lower pole of the left kidney and mid pole of the left kidney similar to the prior study. The largest three of these measure 10, 7, and 9 mm in greatest diameter respectively. There are calcific opacities superimposed on the upper pole of the right kidney as well partially obscured by bowel gas. These appear to measure 7 mm and 5 mm. No bladder calculus or ureteral calculus is seen. There are degenerative spondylosis changes in the lumbar spine. IMPRESSION: Bilateral intrarenal nephrolithiasis. Electronically Signed by Willian Linares MD 11/10/2019 01:33 P
[2019-11-12 04:08] LABS: PSA % FREE 33.1 % (.); PSA FREE 1.62 ng/mL; PSA TOTAL 4.9 ng/mL (0.0-4.0)
== END ==
LOC: M PLAIMG 09:03
PROVIDERS: ATTEND Nurse Practitioner Family
DX: R97.20 Elevated prostate specific antigen [PSA] (principal); N20.0 Calculus of kidney
CPT/HCPCS: 36415; 74018; 84154; G0463

== ENCOUNTER → 2020-04-11 | Outpatient (CLI) | payer MEDICARE ==
[~2020-04-11] MED LIST changes: +LISI-538 PO; -LISI20TA33 PO
--- NOTE | 2020-04-11 13:16 | REP ---
INDICATION: N18.3 CHRONIC KIDNEY DISEASE,GFR. COMPARISON: 07/06/2016. TECHNIQUE: Real-time sonographic evaluation of the kidneys is performed. FINDINGS: Renal cortical echogenicity pattern is normal bilaterally and contours are smooth. There is no evidence of hydronephrosis in either kidney. The right kidney measures 11.9 x 5.8 x 5.5 cm. Left renal dimensions are 13.3 x 6.2 x 5.1 cm. The urinary bladder is unremarkable. Two cysts are seen in the lower right kidney measuring 2 cm and 2.5 cm in maximum diameter. There appears to be an 8 mm calculus in the mid right kidney. A cyst in the upper pole the left kidney measures 2.8 x 3.2 x 2.2 cm, in the mid aspect 2.5 cm in diameter and in the lower pole 2.2 cm in diameter. There appears to be a calculus in the upper left kidney 11 mm and in the lower left kidney 18 mm. IMPRESSION: No hydronephrosis. Bilateral renal cysts and calculi as above. <Electronically signed by Darren Pruitt > 04/11/20 [id number]
== END ==
LOC: M WHC 09:33
PROVIDERS: ATTEND Physician Assistant Medical
DX: N18.30 Chronic kidney disease, stage 3 unspecified (principal); N28.1 Cyst of kidney, acquired; N20.0 Calculus of kidney

== ENCOUNTER → 2020-11-09 | Outpatient (CLI) | payer MEDICARE ==
[~2020-11-09] MED LIST changes: +ASPI-569 PO; -ASPI81TAEC PO; -LISI-538 PO; +LISI20TA33 PO
[2020-11-12 23:07] LABS: PSA % FREE 28.8 % (.); PSA FREE 1.9 ng/mL; PSA TOTAL 6.6 ng/mL (0.0-4.0)
== END ==
LOC: M WUC 08:17
PROVIDERS: ATTEND Nurse Practitioner Family
DX: R97.20 Elevated prostate specific antigen [PSA] (principal)

== ENCOUNTER → 2020-11-09 | Outpatient (CLI) | payer MEDICARE ==
[2020-11-09 09:52] LABS: BASO % 0.4 % (0.0-1.0); EOS # 0.3 10^3/uL (0.0-0.5); EOS % 3.6 % (0.0-3.0); HEMATOCRIT 41.9 % (42.0-52.0); HEMOGLOBIN 13.5 g/dl (13.5-17.5); LYMPH # 1.7 10^3/uL (1.5-5.0); LYMPH % 22.7 % (24.0-44.0); MEAN CORPUSCULAR HEMOGLOBIN 31.3 pg (27.0-33.0); MEAN CORPUSCULAR HGB CONC 32.2 g/dl (32.0-36.5); MONO # 0.7 10^3/uL (0.0-0.8); NEUTROPHILS # 4.9 10^3/uL (1.5-8.5); NEUTROPHILS % 63.9 % (36.0-66.0); PLATELET COUNT, AUTOMATED 192 10^3/uL (150-450); RED BLOOD COUNT 4.32 10^6/uL (4.30-6.10); WHITE BLOOD COUNT 7.6 10^3/uL (4.0-10.0)
[2020-11-09 10:08] LABS: HEMOGLOBIN A1c 5.6 %
[2020-11-09 10:28] LABS: ALBUMIN 3.3 GM/DL (3.2-5.2); ALT/SGPT 23 U/L (12-78); BILIRUBIN,TOTAL 0.6 MG/DL (0.2-1.0); BLOOD UREA NITROGEN 20 MG/DL (7-18); CALCIUM LEVEL 8.9 MG/DL (8.8-10.2); CARBON DIOXIDE LEVEL 30 MEQ/L (21-32); CHLORIDE LEVEL 109 MEQ/L (98-107); CHOLESTEROL LEVEL 158 MG/DL (<200); CHOLESTEROL RISK RATIO 4.514 (<5); CREATININE FOR GFR 1.21 MG/DL (0.70-1.30); FERRITIN 262 NG/ML (26-388); GLOMERULAR FILTRATION RATE > 60.0 (>42); GLUCOSE, FASTING 87 MG/DL (70-100); HDL CHOLESTEROL 35 MG/DL (>40); IRON (FE) 64 UG/DL (65-175); LDL CHOLESTEROL 86 MG/DL (<100); NON-HDL-C 123 MG/DL; POTASSIUM SERUM 4.3 MEQ/L (3.5-5.1); SODIUM LEVEL 143 MEQ/L (136-145); TOTAL PROTEIN 6.4 GM/DL (6.4-8.2); TRIGLYCERIDES LEVEL 186 MG/DL (<150)
[2020-11-09 10:30] LABS: TOTAL 25(OH) VITAMIN D 37.6 NG/ML (30.0-100.0)
== END ==
LOC: M WUC 08:14
PROVIDERS: ATTEND Physician Assistant Medical
DX: N18.31 Chronic kidney disease, stage 3a (principal); E66.01 Morbid (severe) obesity due to excess calories; M10.9 Gout, unspecified; E78.5 Hyperlipidemia, unspecified; E78.1 Pure hyperglyceridemia; D50.9 Iron deficiency anemia, unspecified; R97.20 Elevated prostate specific antigen [PSA]; Z79.899 Other long term (current) drug therapy

== ENCOUNTER → 2020-11-19 | Outpatient (CLI) | payer MEDICARE ==
--- NOTE | 2020-11-19 12:46 | REP ---
INDICATION: CALCULUS OF KIDNEY COMPARISON: 11/10/2019 TECHNIQUE: Supine view of the abdomen and pelvis. FINDINGS: Multiple left intrarenal calculi measuring up to 9 mm are suggested and similar to prior examination. Right intrarenal calculi cannot be excluded. Bowel gas pattern is nonspecific. Skeletal structures demonstrate degenerative changes. IMPRESSION: Left-sided nephroliths and possible right nephrolith suggested. <Electronically signed by Maik De Los Santos > 11/19/20 [id number]
== END ==
LOC: M PLAIMG 11:10
PROVIDERS: ATTEND Nurse Practitioner Family
DX: N20.0 Calculus of kidney (principal)
CPT/HCPCS: 74018; G0463

== ENCOUNTER 2021-03-30 15:36 | Inpatient (IN) | payer MEDICARE ==
[~2021-03-30] VITALS: Ht 172.7 cm; Wt 116.4 kg
[2021-03-30] MEDS ORDERED: NS 1,000 ML IV ONE (15:50)
[2021-03-30] MEDS ORDERED: FURO40TA2 PO (16:09)
--- NOTE | 2021-03-30 16:17 | REP ---
INDICATION: Altered Mental Status. COMPARISON: None. TECHNIQUE: Axial soft tissue and bone window settings and coronal reconstructions provided. FINDINGS: Lateral ventricles are midline symmetric and dilated but in proportion to the moderately severe diffuse atrophy. Third and 4th ventricles are also proportionately sized. There is white matter hypodensity in the anterior limbs of the internal capsules on both sides the lacunar infarct in the caudate nucleus head on the right and in the thalamus on the left. Extensive periventricular, centrum semiovale and subcortical white matter changes bilaterally represent chronic small vessel ischemic disease. Atrophy is most severe in the frontal and temporal lobes but present throughout. I see no intra or extra-axial hemorrhage, vascular territory infarct or parenchymal mass. Brainstem was grossly unremarkable. Cerebellar atrophy noted without mass or posterior fossa hemorrhage. The basal cisterns are intact. Mastoid aeration, visible sinuses, skull base and calvarium were intact. Atherosclerotic calcifications of the carotid siphons noted. IMPRESSION: 1. Moderately severe atrophy with proportionate ventriculomegaly, chronic small vessel white matter ischemic changes of aging and bilateral basal ganglia lacunar infarcts as described in detail above. No acute infarct, intracranial hemorrhage, mass or mass effect. 2. Brainstem intact and cerebellum with atrophy. No posterior fossa bleed. 3. Skull base, calvarium, sinuses and mastoids clear. Some calcifications in the carotid siphons noted. <Electronically signed by Michael Hemphill > 03/30/21 [id number]
--- NOTE | 2021-03-30 16:40 | REP ---
INDICATION: Altered Mental Status. COMPARISON: 09/16/2016 TECHNIQUE: AP seated portable FINDINGS: Lungs are well inflated. There is no effusion, infiltrate atelectasis or mass. Heart has left ventricular configuration. There is no vascular redistribution or pulmonary edema. Calcified tortuous aorta is seen and unchanged. Airway intact. No widening of the mediastinum. Bony thorax shows some marginal osteophytes and minor degenerative changes of the shoulders without destructive lesion. No free air under the diaphragm. IMPRESSION: 1. No acute cardiopulmonary disease, left ventricular configuration of the heart without edema or effusion. <Electronically signed by Michael Hemphill > 03/30/21 [id number]
[2021-03-30 16:41] LABS: BASO % 0.4 % (0.0-1.0); EOS # 0.2 10^3/uL (0.0-0.5); HEMATOCRIT 42.4 % (42.0-52.0); HEMOGLOBIN 13.9 g/dl (13.5-17.5); LYMPH # 1.1 10^3/uL (1.5-5.0); LYMPH % 14.3 % (24.0-44.0); MEAN CORPUSCULAR HEMOGLOBIN 31.5 pg (27.0-33.0); MEAN CORPUSCULAR HGB CONC 32.8 g/dl (32.0-36.5); MEAN CORPUSCULAR VOLUME 96.1 fl (80.0-96.0); MONO # 0.7 10^3/uL (0.0-0.8); MONO % 9.8 % (2.0-8.0); NEUTROPHILS # 5.4 10^3/uL (1.5-8.5); PLATELET COUNT, AUTOMATED 190 10^3/uL (150-450); RED BLOOD COUNT 4.41 10^6/uL (4.30-6.10); WHITE BLOOD COUNT 7.4 10^3/uL (4.0-10.0)
[2021-03-30 17:19] LABS: AMPHETAMINES LEVEL URINE NEGATIVE (NEGATIVE); BARBITURATES URINE NEGATIVE (NEGATIVE); BENZODIAZEPINES URINE NEGATIVE (NEGATIVE); CANNABINOIDS URINE NEGATIVE (NEGATIVE); COCAINE METABOLITE URINE NEGATIVE (NEGATIVE); METHADONE URINE NEGATIVE (NEGATIVE); OPIATES URINE NEGATIVE (NEGATIVE); PHENCYCLIDINE URINE NEGATIVE (NEGATIVE)
[2021-03-30 17:21] LABS: ALBUMIN 3.4 GM/DL (3.2-5.2); ALT/SGPT 32 U/L (12-78); BILIRUBIN,DIRECT 0.1 MG/DL (0.0-0.2); BILIRUBIN,TOTAL 0.5 MG/DL (0.2-1.0); BLOOD UREA NITROGEN 22 MG/DL (7-18); CALCIUM LEVEL 8.9 MG/DL (8.8-10.2); CARBON DIOXIDE LEVEL 28 MEQ/L (21-32); CHLORIDE LEVEL 106 MEQ/L (98-107); CK-MB VALUE MASS 3.3 NG/ML (<3.6); CPK CREATINE PHOSPHOKINASE 136 U/L (39-308); CREATININE FOR GFR 1.52 MG/DL (0.70-1.30); ETHYL ALCOHOL (ETHANOL) < 0.003 % (0.000-0.010); GLOMERULAR FILTRATION RATE 47.8 (>42); GLUCOSE, FASTING 105 MG/DL (70-100); MB/CK RELATIVE INDEX 2.43 (< OR =4); POTASSIUM SERUM 5.5 MEQ/L (3.5-5.1); SODIUM LEVEL 140 MEQ/L (136-145); TOTAL PROTEIN 7.1 GM/DL (6.4-8.2); TROPONIN I < 0.02 NG/ML (< 0.10)
--- OUTSIDE RECORDS SUMMARY | 2021-03-30 17:22 | CCD ---
Author Author [facility] Organization [facility] Address Unknown Phone Unavailable Support Name Relationship Address Phone NAVARRO JAY Next Of Kin [address] [place] [address] UE Next Of Kin Unknown Unavailable RETIRED Next Of Kin Unknown MANUELITO JAY(HP) Next Of Kin [address] [facility] [address] [place] [address] RE Next Of Kin Unknown Unavailable SELF EMPLOYED Next Of Kin UN UN, UN UN SELF ZEHRA PADMAJA [place] [address] [phone] MANUELITO JAY Next Of Kin [address] [place] [address] Darius JAY Next Of Kin [address] [facility] [address] [place] [address] Manuelito Turner ECON [address] [place] [phone] Manuelito Jay ECON [address] [place] [address] [phone] Manuelito Carter ECON [address] [place] [address] [phone] Re-disclosure Warning The records that you are about to access may contain information from federally-assisted alcohol or drug abuse programs. If such information is present, then the following federally mandated warning applies: This information has been disclosed to you from records protected by federal confidentiality rules (42 CFR part 2). The federal rules prohibit you from making any further disclosure of this information unless further disclosure is expressly permitted by the written consent of the person to whom it pertains or as otherwise permitted by 42 CFR part 2. A general authorization for the release of medical or other information is NOT sufficient for this purpose. The Federal rules restrict any use of the information to criminally investigate or prosecute any alcohol or drug abuse patient.The records that you are about to access may contain highly sensitive health information, the redisclosure of which is protected by Article 27-F of the [facility] Public Health law. If you continue you may have access to information: Regarding HIV / AIDS; Provided by facilities licensed or operated by the [facility] Office of Mental Health; or Provided by the [facility] Office for People With Developmental Disabilities. If such information is present, then the following [facility] mandated warning applies: This information has been disclosed to you from confidential records which are protected by state law. State law prohibits you from making any further disclosure of this information without the specific written consent of the person to whom it pertains, or as otherwise permitted by law. Any unauthorized further disclosure in violation of state law may result in a fine or alf sentence or both. A general authorization for the release of medical or other information is NOT sufficient authorization for further disc losure. Family History Family Member Name Family Member Gender Family Member Status Date o f Status Description Data Source(s) Unknown Male Problem MEDENT ([facility]) Unknown Unknown Problem MEDENT ([facility]) Encounters Encounter Providers Location Date Indications Data Source(s ) Unknown [address] [facility] [address] [place] [address] 03/27/2021 12:00:00 AM EDT eCW1 (Former[facility]) Unknown [address] [facility] [place] [address] 01/21/2021 12:00:00 AM EDT eCW1 (Formerly [facility]) Outpatient [address] [facility] [address] [place] [address] 12/19/2020 12:00:00 AM EDT eCW1 ([facility]) Unknown [address] [facility] [address] [place] [address] 11/20/2020 12:00:00 AM EDT eCW1 (Formerly [facility]) Outpatient [address] [facility] [place] [address] 11/19/2020 12:00:00 AM EDT eCW1 (Formerly [facility]) Office Visit, Est Pt., Level 4 PC [address] [place] [address] 11/16/2020 12:00:00 AM EDT eCW1 ([facility]) Outpatient [address] [facility] [place] [address] 05/24/2020 12:00:00 AM EST eCW1 (Formerly [facility]) Unknown [address] [facility] [address] 03/07/2020 12:00:00 AM EDT eCW1 (Formerly [facility]) Immunizations Vaccine Date Status Description Data Source(s) COVID-19 dose #2 given elsewhere Unspecified 08/27/2020 09:3 2:00 AM EDT completed eCW1 ([facility]) COVID-19 dose #2 given elsewhere Unspecified 08/27/2020 09:3 2:00 AM EDT completed eCW1 ([facility]) COVID-19 dose #2 given elsewhere Unspecified 08/27/2020 09:3 2:00 AM EDT completed eCW1 ([facility]) COVID-19 dose #2 given elsewhere Unspecified 08/27/2020 09:3 2:00 AM EDT completed eCW1 ([facility]) COVID-19 dose #2 given elsewhere Unspecified 08/27/2020 09:3 2:00 AM EDT completed eCW1 ([facility]) COVID-19 dose #2 given elsewhere Unspecified 08/27/2020 09:3 2:00 AM EDT completed eCW1 (Formerly [facility]) COVID-19 VACCINE Moderna 08/27/2020 12:00:00 AM EDT completed [facility] Vaccine Series Complete: YESThis Data wa s Submitted to [facility] Via [employer]. COVID-19 dose #1 given elsewhere Unspecified 07/30/2020 09:3 2:00 AM EST completed eCW1 ([facility]) COVID-19 dose #1 given elsewhere Unspecified 07/30/2020 09:3 2:00 AM EST completed eCW1 ([facility]) COVID-19 dose #1 given elsewhere Unspecified 07/30/2020 09:3 2:00 AM EST completed eCW1 ([facility]) COVID-19 dose #1 given elsewhere Unspecified 07/30/2020 09:3 2:00 AM EST completed eCW1 ([facility]) COVID-19 dose #1 given elsewhere Unspecified 07/30/2020 09:3 2:00 AM EST completed eCW1 ([facility]) COVID-19 dose #1 given elsewhere Unspecified 07/30/2020 09:3 2:00 AM EST completed eCW1 ([facility]) COVID-19 VACCINE Moderna 07/29/2020 12:00:00 AM EST completed [facility] Vaccine Series Complete: NOThis Data was Submitted to [facility] Via [id number]. Medications Medication Brand Name Start Date Product Form Dose Route Admi nistrative Instructions Pharmacy Instructions Status Indications Reaction Description Data Source(s) 0.3-0.1 % 02/28/2021 12:00:00 AM EDT drops,suspension 10 APPLY ONE DROP TO LEFT EYE FOUR TIMES A DAY APPLY ONE DROP TO LEFT EYE FOUR TIMES A DAY SOLD: 02/28/2021 [facility] 0.4 mg 01/22/2021 12:00:00 AM EDT capsule 90 TAKE ONE CAPSULE BY MOUTH ONCE A DAY TAKE ONE CAPSULE BY MOUTH ONCE A DAY SOLD: 01/25/2021 [facility] 40 mg 11/27/2020 12:00:00 AM EDT tablet 30 TAKE ONE TABLET BY MOUTH EVERY DAY TAKE ONE TABLET BY MOUTH EVERY DAY SOLD: 11/29/2020 [facility] 40 mg 11/27/2020 12:00:00 AM EDT tablet 30 TAKE ONE TABLET BY MOUTH EVERY DAY TAKE ONE TABLET BY MOUTH EVERY DAY SOLD: 03/04/2021 [facility] 40 mg 11/27/2020 12:00:00 AM EDT tablet 30 TAKE ONE TABLET BY MOUTH EVERY DAY TAKE ONE TABLET BY MOUTH EVERY DAY SOLD: 12/31/2020 [facility] 40 mg 11/27/2020 12:00:00 AM EDT tablet 30 TAKE ONE TABLET BY MOUTH EVERY DAY TAKE ONE TABLET BY MOUTH EVERY DAY SOLD: 01/31/2021 [facility] tadalafil 20 MG Oral Tablet Tadalafil 20 MG Tadalafil 20 MG 11/20/2020 12:00:00 AM EDT 1.0 {tablet} active Tadalafil 2 0 MG eCW1 ([facility]) tadalafil 20 MG Oral Tablet Tadalafil 20 MG Tadalafil 20 MG 11/20/2020 12:00:00 AM EDT 1.0 {tablet} active Tadalafil 2 0 MG eCW1 ([facility]) 100 mg 09/18/2020 12:00:00 AM EDT tablet 180 TAKE TWO TABLETS BY MOUTH ONCE A DAY TAKE TWO TABLETS BY MOUTH ONCE A DAY SOLD: 09/25/2020 [facility] 100 mg 09/18/2020 12:00:00 AM EDT tablet 180 TAKE TWO TABLETS BY MOUTH ONCE A DAY TAKE TWO TABLETS BY MOUTH ONCE A DAY SOLD: 12/26/2020 [facility] 40 mg 06/21/2020 12:00:00 AM EST tablet 30 TAKE 1 TABLET BY MOUTH ONCE A DAY TAKE 1 TABLET BY MOUTH ONCE A DAY SOLD: 07/23/2020 [facility] 40 mg 06/21/2020 12:00:00 AM EST tablet 30 TAKE 1 TABLET BY MOUTH ONCE A DAY TAKE 1 TABLET BY MOUTH ONCE A DAY SOLD: 06/25/2020 [facility] 40 mg 06/21/2020 12:00:00 AM EST tablet 30 TAKE 1 TABLET BY MOUTH ONCE A DAY TAKE 1 TABLET BY MOUTH ONCE A DAY SOLD: 09/25/2020 [facility] 40 mg 06/21/2020 12:00:00 AM EST tablet 30 TAKE 1 TABLET BY MOUTH ONCE A DAY TAKE 1 TABLET BY MOUTH ONCE A DAY SOLD: 08/22/2020 [facility] 40 mg 06/21/2020 12:00:00 AM EST tablet 30 TAKE 1 TABLET BY MOUTH ONCE A DAY TAKE 1 TABLET BY MOUTH ONCE A DAY SOLD: 10/27/2020 [facility] 100 mg 03/13/2020 12:00:00 AM EDT tablet 180 TAKE TWO TABLETS BY MOUTH ONCE A DAY TAKE TWO TABLETS BY MOUTH ONCE A DAY SOLD: 03/20/2020 [facility] 100 mg 03/13/2020 12:00:00 AM EDT tablet 180 TAKE TWO TABLETS BY MOUTH ONCE A DAY TAKE TWO TABLETS BY MOUTH ONCE A DAY SOLD: 06/20/2020 [facility] 0.4 mg 01/26/2020 12:00:00 AM EDT capsule 90 TAKE ONE CAPSULE BY MOUTH ONCE A DAY TAKE ONE CAPSULE BY MOUTH ONCE A DAY SOLD: 04/25/2020 [facility] 20 mg 01/26/2020 12:00:00 AM EDT tablet 180 TAKE ONE TABLET BY MOUTH TWICE A DAY TAKE ONE TABLET BY MOUTH TWICE A DAY SOLD: 01/25/2021 [facility] 20 mg 01/26/2020 12:00:00 AM EDT tablet 180 TAKE ONE TABLET BY MOUTH TWICE A DAY TAKE ONE TABLET BY MOUTH TWICE A DAY SOLD: 04/25/2020 [facility] 0.4 mg 01/26/2020 12:00:00 AM EDT capsule 90 TAKE ONE CAPSULE BY MOUTH ONCE A DAY TAKE ONE CAPSULE BY MOUTH ONCE A DAY SOLD: 07/23/2020 [facility] 0.4 mg 01/26/2020 12:00:00 AM EDT capsule 90 TAKE ONE CAPSULE BY MOUTH ONCE A DAY TAKE ONE CAPSULE BY MOUTH ONCE A DAY SOLD: 10/27/2020 [facility] Lisinopril 20 MG Oral Tablet LISINOPRIL 01/26/2020 12:00:00 AM EDT tab let 180 TAKE ONE TABLET BY MOUTH TWICE A DAY TAKE ONE TABLET BY MOUTH TWICE A DAY SOLD: 10/27/2020 [facility] 20 mg 01/26/2020 12:00:00 AM EDT tablet 180 TAKE ONE TABLET BY MOUTH TWICE A DAY TAKE ONE TABLET BY MOUTH TWICE A DAY SOLD: 07/23/2020 [facility] 40 mg 11/29/2019 12:00:00 AM EDT tablet 30 TAKE 1 TABLET BY MOUTH ONCE A DAY TAKE 1 TABLET BY MOUTH ONCE A DAY SOLD: 03/02/2020 [facility] 40 mg 11/29/2019 12:00:00 AM EDT tablet 30 TAKE 1 TABLET BY MOUTH ONCE A DAY TAKE 1 TABLET BY MOUTH ONCE A DAY SOLD: 04/20/2020 [facility] 40 mg 11/29/2019 12:00:00 AM EDT tablet 30 TAKE 1 TABLET BY MOUTH ONCE A DAY TAKE 1 TABLET BY MOUTH ONCE A DAY SOLD: 05/24/2020 [facility] Insurance Providers Payer name Policy type / Coverage type Policy ID Covered democrat ID Covered democrat's relationship to caicedo Policy Caicedo Plan Information [employer] [facility] Options [facility] Part B [id number] Self [id number] Medicare [place] Medicare Primary [id number] Self [id number] [facility] Healthcare Options [facility] Part B [id number] Self [id number] Medicare [place] Medicare Primary [id number] Self [id number] [facility] OPTIONS [id number] ANSI-Commercial [id number] ANSI-Medicare Part B [id number] ANSI-Medicare Part B [id number] ANSI-Commercial [id number] ANSI-Medicare Part B [id number] ANSI-Commercial [id number] ANSI-Medicare Part B [id number] ANSI-Commercial [id number] AARP O [id number] S [id number] MEDICARE C [id number] S [id number] A MEDICARE [id number] SP [id number] A AARP O [id number] S [id number] [place] MEDICARE PART B C [id number] S [id number] [facility] Care Options Medigap Part B [id number] Self Medicare [place] Gov't Servi Medicare Primary [id number] Self SELF PAY UNAVAILABLE SP UNAVAILA BLE [facility] OPTIONS-CL[facility]IC [id number] 18 [id number] MEDICARE [id number] SP [id number] MEDICARE PART A-CLINIC [id number] 18 [id number] [facility] OPTIONS [id number] SP [id number] MEDICARE [id number] SP [id number] ANSI-Commercial [id number] ANSI-Medicare Part [id number] Problems, Conditions, and Diagnoses Code Display Name Description Problem Type Effective Dates Data Source(s) N18.31 588562677 Stage 3a chronic kidney disease Problem 05/24/2020 12:00:00 AM EST eCW1 ([facility]) Surgeries/Procedures No Information Results No Information Social History Code Duration Value Status Description Data Source(s ) Smoking 12/19/2020 12:00:00 AM EDT Never Smoker completed Never S moker eCW1 ([facility]) Smoking 12/19/2020 12:00:00 AM EDT Never Smoker completed Never S moker eCW1 ([facility]) Smoking 12/19/2020 12:00:00 AM EDT Never Smoker completed Never S moker eCW1 ([facility]) Smoking 11/19/2020 12:00:00 AM EDT Never Smoker completed Never S moker eCW1 ([facility]) Smoking 11/19/2020 12:00:00 AM EDT Never Smoker completed Never S moker eCW1 ([facility]) Smoking 11/19/2020 12:00:00 AM EDT Never Smoker completed Never S moker eCW1 ([facility]) Smoking 05/24/2020 12:00:00 AM EST Never Smoker completed Never S moker eCW1 ([facility]) Vital Signs ID Date Data Source UNK Name Value Range Interpretation Code Description Data Source(s) Diastolic blood pressure 90 mm[Hg] 90 mm[Hg] eCW1 ([facility]) Body weight 249 [lb_av] 249 [lb_av] eCW1 ([facility]) Body height 66.5 [in_i] 66.5 [in_i] eCW1 ([facility]) Body mass index (BMI) [Ratio] 39.58 kg/m2 39.58 kg/m2 eCW1 ([facility]) Heart rate 52 /min 52 /min eCW1 ([facility]) Respiratory rate 18 /min 18 /min eCW1 ([facility]) Body temperature 96.5 [degF] 96.5 [degF] eCW1 ( [facility]) Systolic blood pressure 160 mm[Hg] 160 mm[Hg] e CW1 ([facility]) Body weight 249.8 [lb_av] 249.8 [lb_av] eCW1 ([facility]) Body height 66.5 [in_i] 66.5 [in_i] eCW1 ([facility]) Body mass index (BMI) [Ratio] 39.71 kg/m2 39.71 kg/m2 eCW1 ([facility]) Heart rate 61 /min 61 /min eCW1 ([facility]) Respiratory rate 18 /min 18 /min eCW1 ([facility]) Body temperature 97.3 [degF] 97.3 [degF] eCW1 ( [facility]) Systolic blood pressure 118 mm[Hg] 118 mm[Hg] e CW1 ([facility]) Diastolic blood pressure 68 mm[Hg] 68 mm[Hg] eCW1 ([facility]) Body weight 253 [lb_av] 253 [lb_av] eCW1 ([facility]) Body height 66.5 [in_i] 66.5 [in_i] eCW1 ([facility]) Heart rate 67 /min 67 /min eCW1 ([facility]) Body mass index (BMI) [Ratio] 40.22 kg/m2 40.22 kg/m2 eCW1 ([facility]) Respiratory rate 18 /min 18 /min eCW1 ([facility]) Systolic blood pressure 100 mm[Hg] 100 mm[Hg] e CW1 ([facility]) Body temperature 98.4 [degF] 98.4 [degF] eCW1 ( [facility]) Diastolic blood pressure 70 mm[Hg] 70 mm[Hg] eCW1 ([facility]) Body weight 254 [lb_av] 254 [lb_av] eCW1 ([facility]) Body height 66.5 [in_i] 66.5 [in_i] eCW1 ([facility]) Body mass index (BMI) [Ratio] 40.38 kg/m2 40.38 kg/m2 eCW1 ([facility]) Heart rate 66 /min 66 /min eCW1 ([facility]) Respiratory rate 18 /min 18 /min eCW1 ([facility]) Body temperature 97.6 [degF] 97.6 [degF] eCW1 ( [facility]) Systolic blood pressure 140 mm[Hg] 140 mm[Hg] e CW1 ([facility]) Diastolic blood pressure 82 mm[Hg] 82 mm[Hg] eCW1 ([facility]) Patient Treatment Plan of Care Planned Activity Planned Date Details Description Data Source (s) tadalafil 20 MG Oral Tablet 11/20/2020 12:00:00 AM EDT eCW1 ([facility]) tadalafil 20 MG Oral Tablet 11/20/2020 12:00:00 AM EDT eCW1 ([facility])
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
--- OUTSIDE RECORDS SUMMARY | 2021-03-30 17:22 | CCD ---
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 Role Phone Sarai Hernández Unavailable PROBLEMS Type Condition ICD9-CM Code FOC64-CB Code Onset Dates Condition S tatus W/U Status Risk SNOMED Code Notes Problem Hyperlipidemia, unspecified E78.5 Active confirmed 45083065 Problem Pure hyperglyceridemia E78.1 Active confirmed 740992392 Problem Morbid (severe) obesity due to excess calories E66 .01 Active confirmed 908893189 Problem Chronic diastolic heart failure I50.32 Active confi rmed 018173274 Problem Essential (primary) hypertension I10 Active conf irmed 79799346 Problem Stage 3a chronic kidney disease N18.31 Active confi rmed 321327094 Problem Gout, unspecified M10.9 Active confirmed 90 580990 Problem Iron deficiency anemia, unspecified iron deficiency an emia type D50.9 Active confirmed 87299588 Problem Elevated PSA R97.20 Active confirmed 4396499 05 Problem Kidney stones N20.0 Active confirmed 139169 07 Problem Erectile dysfunction, unspecified erectile dysfunction typ e N52.9 Active confirmed 165065151 ALLERGIES No Known Allergies ENCOUNTERS from 1945 to 2021-03-28 Encounter Location Date Provider Diagnosis [address] [place] [address] Mar, Sarai Hernández Gout, unspecified M10.9 IMMUNIZATIONS Vaccine Route Administration Date Status COVID-19 dose #2 given elsewhere Unspecified Unknown Apr il 2020 Administered COVID-19 dose #1 given elsewhere Unspecified Unknown Mar ch 2020 Administered SOCIAL HISTORY Tobacco Use: Social History [...] Vitamin B Complex - Orally Activ e Allopurinol 100 MG TAKE TWO TABLETS BY MOUTH ONCE A DAY for 90 Active Tadalafil 20 MG 1 tablet Orally prn, 1 hour prior to intercourse for 30 Active Fish Oil 1000 MG 1 capsule Orally Once a day Active amLODIPine Besylate 5 MG 1 tablet Orally Once a day for 90 days Active Viagra 100 MG 1 tablet as [...] a day for 90 day(s) Jul, Active Indomethacin 25 mg 1-2 capsule with food Orally Three times a day as needed for 90 days Feb, Active Lisinopril 20 mg 1 tablet Orally twice daily for 90 Active PROCEDURES No Information RESULTS No Results REASON FOR VISIT refill MEDICAL (GENERAL) HISTORY Type Description Date Medical [...] Notes Treatment Notes Treatm ent Clinical Notes Mar, Gout, unspecified (ICD-10 - M10.9) PLAN OF TREATMENT Medication Medication Name Sig Start Date Stop Date Allopurinol 100 MG TAKE TWO TABLETS BY MOUTH ONCE A DAY for 90 Indomethacin 25 mg 1-2 capsule with food Orally Three times a day as needed for 90 days Feb, Tamsulosin HCl 0.4 MG 1 capsule Orally Once a day for 90 day(s) Jul, Next Appt Details Provider Name:Sarai Hernández, 2021-04-29 09:30:00 AM, [address], , [place], [address], Provider Name:Duyen Portillo, 2021-11- 9 11:15:00 AM, [address], , [place], [address], Insurance Providers Payer Name Payer Address Payer Phone Insured Name Patient Relati onship to Insured Coverage Start Date Coverage End Date MEDICARE Part A and B [address] [facility] [phone] JOSR JAY [facility] OPTIONS [facility] CLAIM [facility] [address] [facility] [phone] JOSR JAY self
[2021-03-30 17:26] LABS: OSMOLALITY SERUM 299 MOSM/KG (280-301)
--- NOTE | 2021-03-30 17:45 | ECGEPIP ---
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
[2021-03-30] MEDS ORDERED: hydrALAZINE 20MG/ML 1ML VIAL (J0360 PER 20MG) IV ONE (18:40)
[2021-03-30] MEDS ORDERED: PATIROMER SORBITEX CALCIUM 8.4 GM POWDER PACKET (VELTASSA) PO ONE (18:45)
[2021-03-30] MEDS ORDERED: ISOSORBIDE DIN. (ISORDIL) 30 MG TAB PO ONE (18:45)
[2021-03-30] MEDS ORDERED: REFR0.5D8 OU (18:48)
[2021-03-30] MEDS ORDERED: FIBE625T PO (18:48)
[2021-03-30] MEDS ORDERED: VITA400C53 PO (18:48)
[2021-03-30] MEDS ORDERED: OMEG12002 PO (18:48)
[2021-03-30] MEDS ORDERED: MULT-40 PO (18:48)
[2021-03-30] MEDS ORDERED: EQL50TAB2 PO (18:48)
[2021-03-30] MEDS ORDERED: HOME MED LIST COMPLETE! XX SCH (18:50)
[2021-03-30] MEDS ORDERED: CALCIUM GLUCONATE 1,000 MG in D5W MINI-BAG PLUS 100 ML IV ONE (19:00)
--- OUTSIDE RECORDS SUMMARY | 2021-03-30 19:13 | CCD ---
Author Author [facility] Organization [facility] Address Unknown Phone Unavailable Support Name Relationship Address Phone NAVARRO JAY Next Of Kin [address] [place] [address] UE Next Of Kin Unknown Unavailable RETIRED Next Of Kin Unknown MANUELITO JAY(HP) Next Of Kin [address] [facility] [address] [place] [address] RE Next Of Kin Unknown Unavailable SELF EMPLOYED Next Of Kin UN UN, UN UN SELF ZEHRA PADMAJA MICHAEL [place] [phone] MANUELITO JAY Next Of Kin [address] [place] [address] Darius JAY Next Of Kin [address] [facility] [address] [place] [address] Manuelito Turner ECON [address] [place] [phone] Manuelito Jay ECON [address] [place] [address] [phone] Manuelito Carter ECON [address] [place] [phone] [phone] Re-disclosure Warning The records that you are [...] is protected by Article 27-F of the [facility] Public Health law. If you continue you may have access to information: Regarding HIV / AIDS; Provided by facilities licensed or operated by the [facility] Office of Mental Health; or Provided by the [facility] Office for People With Developmental Disabilities. If such information is present, then the following [facility] mandated warning applies: This information has [...] law may result in a fine or detention sentence or both. A general authorization for [...] Date Indications Data Source(s ) Unknown [address] [facility] [place] [address] 03/27/2021 12:00:00 AM EDT eCW1 ([facility]) Unknown [address] [facility] Y [address] 01/21/2021 12:00:00 AM EDT eCW1 ([facility]) Outpatient [address] [facility] [place] [address] 12/19/2020 12:00:00 AM EDT eCW1 ([facility]) Unknown [address] [facility] [place] [address] 11/20/2020 12:00:00 AM EDT eCW1 ([facility]) Outpatient [address] [facility] Y [address] 11/19/2020 12:00:00 AM EDT eCW1 ([facility]) Office Visit, Est Pt., Level 4 PC [address] [place] [address] 11/16/2020 12:00:00 AM EDT eCW1 ([facility]) Outpatient [address] [facility] [place] [address] 05/24/2020 12:00:00 AM EST eCW1 ([facility]) Unknown [address] [facility] [place] [address] 03/07/2020 12:00:00 AM EDT eCW1 ([facility]) Immunizations Vaccine Date Status Description Data Source(s) COVID-19 dose #2 given elsewhere Unspecified 08/27/2020 09:3 2:00 AM EDT completed eCW1 ([facility]) COVID-19 dose #2 given elsewhere Unspecified 08/27/2020 09:3 2:00 AM EDT completed eCW1 ([facility]) COVID-19 dose #2 given elsewhere Unspecified 08/27/2020 09:3 2:00 AM EDT completed eCW1 ([facility]) COVID-19 dose #2 given elsewhere Unspecified 08/27/2020 09:3 2:00 AM EDT completed eCW1 ([facility]) COVID-19 dose #2 given elsewhere Unspecified 08/27/2020 09:3 2:00 AM EDT completed eCW1 ([facility]) COVID-19 dose #2 given elsewhere Unspecified 08/27/2020 09:3 2:00 AM EDT completed eCW1 ([facility]) COVID-19 VACCINE Moderna 08/27/2020 12:00:00 AM EDT completed [employer] Vaccine Series Complete: YESThis Data wa s Submitted to [facility] Via [employer]. COVID-19 dose #1 given elsewhere Unspecified 07/30/2020 09:3 2:00 AM EST completed eCW1 ([facility]) COVID-19 dose #1 given elsewhere Unspecified 07/30/2020 09:3 2:00 AM EST completed eCW1 ([facility]) COVID-19 dose #1 given elsewhere Unspecified 07/30/2020 09:3 2:00 AM EST completed eCW1 ([facility]) COVID-19 dose #1 given elsewhere Unspecified 07/30/2020 09:3 2:00 AM EST completed eCW1 ([facility]) COVID-19 dose #1 given elsewhere Unspecified 07/30/2020 09:3 2:00 AM EST completed eCW1 ([facility]) COVID-19 dose #1 given elsewhere Unspecified 07/30/2020 09:3 2:00 AM EST completed eCW1 ([facility]) COVID-19 VACCINE Moderna 07/29/2020 12:00:00 AM EST completed [facility] Vaccine Series Complete: NOThis Data was Submitted to [facility] Via [employer]. Medications Medication Brand Name Start Date Product [...] {tablet} active Tadalafil 2 0 MG eCW1 ([facility]) tadalafil 20 MG Oral Tablet Tadalafil 20 MG Tadalafil 20 MG 11/20/2020 12:00:00 AM EDT 1.0 {tablet} active Tadalafil 2 0 MG eCW1 ([facility]) 100 mg 09/18/2020 12:00:00 AM EDT tablet [...] type / Coverage type Policy ID Covered alliance party ID Covered alliance party's relationship to caicedo Policy Caicedo Plan Information [facility] Options [facility] Part B [id number] Self [id number] Medicare [place] Medicare Primary [id number] Self [id number] [facility] Healthcare Options [facility] Part B [id number] Self [id number] Medicare [place] Medicare Primary [id number] Self [id number] [facility] C[facility] OPTIONS [id number] ANSI-Commercial [id number] ANSI-Medicare Part B [id number] ANSI-Medicare Part B [id number] ANSI-Commercial [id number] ANSI-Medicare Part B [id number] ANSI-Commercial [id number] ANSI-Medicare Part B [id number] ANSI-Commercial [id number] AARP O [id number] S [id number] MEDICARE C [id number] S [id number] A MEDICARE [id number] SP [id number] A AARP O [id number] S [id number] [place] MEDICARE PART B C [id number] S [id number] [facility] Health Care Options Medigap Part B [id number] Self Medicare [place] Gov't Servi Medicare Primary [id number] Self SELF PAY UNAVAILABLE SP UNAVAILA BLE [facility] OPTIONS-CLINIC [id number] 18 [id number] MEDICARE [id number] SP [id number] MEDICARE PART A-CLINIC [id number] 18 [id number] [facility] OPTIONS [id number] SP [id number] MEDICARE [id number] SP [id number] ANSI-Commercial [id number] ANSI-Medicare Part B [id number] Problems, Conditions, and Diagnoses Code Display Name Description Problem Type Effective Dates Data Source(s) N18.31 [id number] Stage 3a chronic kidney disease Problem 05/24/2020 12:00:00 AM EST eCW1 ([facility]) Surgeries/Procedures No Information Results No Information Social History Code Duration Value Status Description Data Source(s ) Smoking 12/19/2020 12:00:00 AM EDT Never Smoker completed Never S moker eCW1 ([facility]) Smoking 12/19/2020 12:00:00 AM EDT Never Smoker completed Never S moker eCW1 ([facility]) Smoking 12/19/2020 12:00:00 AM EDT Never Smoker completed Never S moker eCW1 ([facility]) Smoking 11/19/2020 12:00:00 AM EDT Never Smoker completed Never S moker eCW1 ([facility]) Smoking 11/19/2020 12:00:00 AM EDT Never Smoker completed Never S moker eCW1 ([facility]) Smoking 11/19/2020 12:00:00 AM EDT Never Smoker completed Never S moker eCW1 ([facility]) Smoking 05/24/2020 12:00:00 AM EST Never Smoker completed Never S moker eCW1 ([facility]) Vital Signs ID Date Data Source UNK Name Value Range Interpretation Code Description Data Source(s) Body weight 249 [lb_av] 249 [lb_av] eCW1 ([facility]) Body height 66.5 [in_i] 66.5 [in_i] eCW1 ([facility]) Diastolic blood pressure 90 mm[Hg] 90 mm[Hg] eCW1 ([facility]) Body mass index (BMI) [Ratio] 39.58 kg/m2 39.58 kg/m2 eCW1 ([facility]) Heart rate 52 /min 52 /min eCW1 ([facility]) Respiratory rate 18 /min 18 /min eCW1 ([facility]) Body temperature 96.5 [degF] 96.5 [degF] eCW1 ( [facility]) Systolic blood pressure 160 mm[Hg] 160 mm[Hg] e CW1 ([facility]) Body weight 249.8 [lb_av] 249.8 [lb_av] [facility] Body height 66.5 [in_i] 66.5 [in_i] eCW1 ([facility]) Heart rate 61 /min 61 /min eCW1 ([facility]) Systolic blood pressure 118 mm[Hg] 118 mm[Hg] e CW1 ([facility]) Respiratory rate 18 /min 18 /min eCW1 ([facility]) Body temperature 97.3 [degF] 97.3 [degF] eCW1 ( [facility]) Body mass index (BMI) [Ratio] 39.71 kg/m2 39.71 kg/m2 eCW1 ([facility]) Diastolic blood pressure 68 mm[Hg] 68 mm[Hg] eCW1 ([facility]) Body weight 253 [lb_av] 253 [lb_av] eCW1 ([facility]) Body height 66.5 [in_i] 66.5 [in_i] eCW1 ([facility]) Heart rate 67 /min 67 /min eCW1 ([facility]) Body mass index (BMI) [Ratio] 40.22 kg/m2 40.22 kg/m2 eCW1 ([facility]) Respiratory rate 18 /min 18 /min eCW1 ([facility]) Systolic blood pressure 100 mm[Hg] 100 mm[Hg] e CW1 ([facility]) Body temperature 98.4 [degF] 98.4 [degF] eCW1 ( [facility]) Diastolic blood pressure 70 mm[Hg] 70 mm[Hg] eCW1 ([facility]) Body weight 254 [lb_av] 254 [lb_av] eCW1 ([facility]) Body height 66.5 [in_i] 66.5 [in_i] eCW1 ([facility]) Body mass index (BMI) [Ratio] 40.38 kg/m2 40.38 kg/m2 eCW1 ([facility]) Heart rate 66 /min 66 /min eCW1 ([facility]) Respiratory rate 18 /min 18 /min eCW1 ([facility]) Body temperature 97.6 [degF] 97.6 [degF] eCW1 ( [facility]) Systolic blood pressure 140 mm[Hg] 140 mm[Hg] e CW1 ([facility]) Diastolic blood pressure 82 mm[Hg] 82 mm[Hg] eCW1 ([facility]) Patient Treatment Plan of Care Planned Activity Planned Date Details Description Data Source (s) tadalafil 20 MG Oral Tablet 11/20/2020 12:00:00 AM EDT eCW1 ([facility]) tadalafil 20 MG Oral Tablet 11/20/2020 12:00:00 AM EDT eCW1 ([facility])
--- NOTE | 2021-03-30 20:15 | REP ---
INDICATION: H/O RENAL CALCULI ACUTE ON CKD3. COMPARISON: 04/11/2020 TECHNIQUE: Grayscale renal and bladder sonography. FINDINGS: Right kidney is 11.2 x 5.4 x 4.8 cm. It is cortical echogenicity is less than that of the adjacent liver. No hydronephrosis or hydroureter. Some echogenic vessels are evident and sinus lipomatosis. Parapelvic cyst is noted 2.5 x 2.4 x 2.1 cm interpolar lower pole junction laterally and a lower pole cyst 2.2 x 2.1 x 1.6 cm. Left kidney is 11.8 x 4.9 x 5.2 cm and also shows normal cortical thickness and echogenicity. No hydronephrosis or hydroureter there are echogenic vessels and some sinus lipomatosis seen. Lower pole cyst 1.7 x 1.7 cm and upper pole cyst medially 2.7 x 2.7 x 2.6 cm and superiorly 2.2 x 2.4 x 2 cm. Echogenic focus in the upper pole within the pyramid is seen similar previous study. Is also not echogenic focus in the lower pole probably in a pyramid as well. Bladder was adequately filled there is no debris, stone, wall thickening, mass or diverticulum. IMPRESSION: 1. Kidneys show normal cortical echogenicity and evidence of bilateral renal cysts as described. Cysts similar to the previous study. The exam was limited due to body habitus considerations. No significant atrophy. 2. Appear to be some calcifications in the medullary pyramids on the left as on previous study but not as well visualized as stated above. 3. No bladder abnormalities identified. <Electronically signed by Michael Hemphill > 03/30/212010
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
[2021-03-30 20:53] LABS: URIC ACID 7.2 MG/DL (3.5-7.2)
[2021-03-30] MEDS ORDERED: amLODIPine 5 MG TAB PO SCH (21:00)
[2021-03-30] MEDS: POLYVINYL ALCOHOL OPHTH SOLN 15 ML(LIQUITEARS) OU SCH (22:46)
[2021-03-31 06:23] LABS: HEMATOCRIT 37.1 % (42.0-52.0); HEMOGLOBIN 12.1 g/dl (13.5-17.5); MEAN CORPUSCULAR HEMOGLOBIN 31.4 pg (27.0-33.0); MEAN CORPUSCULAR HGB CONC 32.6 g/dl (32.0-36.5); MEAN CORPUSCULAR VOLUME 96.4 fl (80.0-96.0); PLATELET COUNT, AUTOMATED 164 10^3/uL (150-450); RED BLOOD COUNT 3.85 10^6/uL (4.30-6.10)
[2021-03-31 07:05] LABS: HEMOGLOBIN A1c 5.6 %
[2021-03-31 07:34] LABS: CALCIUM LEVEL 8.7 MG/DL (8.8-10.2); CHOLESTEROL RISK RATIO 4.205 (<5); CREATININE FOR GFR 1.49 MG/DL (0.70-1.30); GLOMERULAR FILTRATION RATE 48.9 (>42); MAGNESIUM LEVEL 2.1 MG/DL (1.8-2.4); POTASSIUM SERUM 4.6 MEQ/L (3.5-5.1)
[2021-03-31] MEDS: POLYVINYL ALCOHOL OPHTH SOLN 15 ML(LIQUITEARS) OU SCH (08:53)
[2021-03-31] MEDS ORDERED: allopurinoL 100 MG TAB PO SCH (09:00)
[2021-03-31] MEDS ORDERED: TAMSULOSIN 0.4 MG CAP PO SCH (09:00)
[2021-03-31] MEDS ORDERED: MULTIVITAMINS/MINERALS THERAP 1 TAB PO SCH (09:00)
[2021-03-31] MEDS ORDERED: ASCORBIC ACID 500 MG TAB PO SCH (09:00)
[2021-03-31] MEDS ORDERED: ASPIRIN 81MG ENTERIC TABLET PO SCH (09:00)
[2021-03-31] MEDS ORDERED: FERROUS SULFATE 325MG TAB PO SCH (09:00)
--- NOTE | 2021-03-31 14:49 | REP ---
INDICATION: re-eval for possible CVA, cannot have MRI. COMPARISON: 03/30/2021 TECHNIQUE: Axial soft tissue and bone windows are reviewed along with coronal reconstructions. FINDINGS: Lateral ventricles remain midline, symmetric mildly dilated but proportionate to the diffuse cerebral atrophy, unchanged 3rd and 4th ventricles were also proportionately sized. White matter hypodensity in the anterior limbs of the internal capsule again seen in the basal ganglia. There is no lacunar infarct in the left thalamus and head of the caudate nucleus on the right. All of this is stable. Heterogeneous white matter changes in the periventricular, centrum semiovale and subcortical distribution are again seen and unchanged, consistent with chronic small vessel ischemic disease. The diffuse atrophy is greatest in the temporal and frontal lobes but present throughout. There is no vascular territory infarct an acute basis, intra or extra-axial hemorrhage, mass or mass effect. Brainstem is grossly unremarkable. Cerebellum shows atrophy without mass nor a posterior fossa hemorrhage. Mastoid aeration, sinuses, skull base and calvarium show no new or acute finding. There are atherosclerotic calcifications of the carotid siphons. Axial image 5 bone window settings demonstrates the metallic foreign body in the medial aspect of the right orbit. This would preclude any MRI scanning. Prosthetic right globe. IMPRESSION: Ventriculomegaly and proportionate atrophy, unchanged. Old lacunar infarcts in the basal ganglia stable. No new lacunar infarcts, vascular territory infarcts, intracranial hemorrhage or mass Posterior fossa shows some cerebellar atrophy without hemorrhage. Basal cisterns intact. Stable exam with no new finding. <Electronically signed by Michael Hemphill > 03/31/21 [id number]
[2021-03-31] MEDS ORDERED: **hydrALAZINE HCL** 25 MG TAB PO ONE (15:10)
[2021-03-31 16:47] VITALS: BP 179/82
[2021-03-31 17:00] VITALS: BP 143/86
--- NOTE | 2021-03-31 22:00 | DS.PDOC ---
Discharge Summary General Date of Admission Mar 30, 2021 at 18:39 Date of Discharge Mar 31, 2021 Discharge Summary PROCEDURES PERFORMED DURING STAY: None ADMITTING DIAGNOSES: 1. Encephalopathy secondary to hypertensive emergency 2. HFpEF 3. CKD stage 3 4. Obesity 5. Gout DISCHARGE DIAGNOSES: 1. Encephalopathy secondary to hypertensive emergency 2. HFpEF 3. CKD stage 3 4. Obesity 5. Gout COMPLICATIONS/CHIEF COMPLAINT: Hypertensive Urgency. HISTORY OF PRESENT ILLNESS: Copied from admitting provider's H&P " Angel Jay is a 76yoM significant medical history of DHF, htn, CKD stage 3, obesity, hdl, kidney stones who presents with complaints of high blood pressure. Patient seen at bedside in ED in no distress. He denies complaints however reports poor historian and described "not sure why came in the hospital". He is able to say who he is where he is and the year. He is a limited historian about his medications. 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 Patient is able to confirm his wishes regarding advanced directives as well as say who his is. Of note, CT head nonacute however with some age-related changes and lacunar infarcts as well as frontal and temporal atrophy and microvascular disease. Chest x-ray nonacute. Renal ultrasound nonacute. UA negative Initial lab work without leukocytosis or significant electrolyte derangements. Tox screen negative. Metabolic work-up unremarkable. While in ED blood pressure as high as 240/120. During exam blood pressure did decrease 160/97. Majority of HPI obtained from phone call with patient's . Reportedly, patient at baseline until gout attack LLE 2 days ago. He was pre scribed indomethacin. He was otherwise at baseline and then reported that the patient had gone to get mail came back inside promptly vomited into the kitchen sink today. Patient reports his blood pressure was elevated at that time although she was unable to say how high. She also noted that he "did not remember getting the mail"; seemed disoriented and thus sent to hospital. Per patient reports that he "has not had any memory issues other than the memory issues that can come with old age". She does not describe any history of known stroke. Of interest, she also reports that there is been a confusion with patient's blood pressure medicine recently. Patient takes lisinopril and Norvasc at home. Reportedly, per patient , she manages patient's medications at home with the exception of two nighttime medications. 1 medication from urology Flomax and another blood pressure pill is nightly per med rec. There was a "mixup" regarding if patient had been taking his Norvasc nightly and some confusion as he ran out of "one of the medications" per . She reports there has been a few weeks where he would have been off of his Norvasc. Additionally, patient had been started on indomethacin recently for gout. Patient has taken 4 capsules since yesterday as she counted 26 out of 30 from the medicine bottle. This may be contributing to his blood pressure. She does confirm patient is DNR/DNI. Patient will be admitted for further evaluation management of presenting concerns. " HOSPITAL COURSE: Patient was not able to have MRI due to metal in his eye. I dis cussed case with neurology. Patient most likely had transient global amnesia secondary to hypertensive emergency. Since we cannot get an MRI, we could repeat the CT head. If negative, patient would be okay for home. Repeat CT head was negative. When I saw patient he felt well. Blood pressure was controlled. He told me he had an episode in the past where his blood pressure was high and he did not remember what happened. Apparently he had turned on all the tractors in the garage, but he did not remember doing that. Otherwise, he felt well and was asking about discharge. Patient was discharged home today. DISCHARGE MEDICATIONS: Please see below. ALLERGIES: Please see below. PHYSICAL EXAMINATION ON DISCHARGE: VITAL SIGNS: Please see below. GENERAL: Comfortable, in no apparent distress HEENT: Head normocephalic, atraumatic CARDIOVASCULAR EXAMINATION: Bradycardia, but regular RESPIRATORY EXAMINATION: Lungs clear to auscultation bilaterally ABDOMINAL EXAMINATION: Soft, non-tender, normal bowel sounds EXTREMITIES: No pitting edema bilaterally SKIN: Warm and dry NEUROLOGICAL EXAMINATION: CN 3-12 grossly intact PSYCHIATRIC EXAMINATION: Normal mood and affect LABORATORY DATA: Please see below. IMAGING: Please see charge for imaging PROGNOSIS: Good ACTIVITY: As tolerated. DIET: 2gm sodium diet DISCHARGE PLAN: Home DISPOSITION: Home, Self-Care. DISCHARGE INSTRUCTIONS: 1. Follow up with your PCP within 1 week ITEMS TO FOLLOWUP ON ON OUTPATIENT: 1. Blood pressure 2. Renal function 3. Potassium DISCHARGE CONDITION: Stable. Total time spent on discharge planning, discharge summary, and medication reconciliation: 40 minutes Vital Signs/I&Os Vital Signs Date Time Temp Pulse Resp B/P (MAP) Pulse Ox O2 Delivery O2 Flow Rate FiO2 03/31/21 17:00 97.6 50 18 143/86 (105) 95 03/31/21 06:45 Room Air I&O- Last 24 Hours up to 6 AM 03/31/21 06:00 Intake Total 1110 ml Output Total 500 ml Balance 610 ml Laboratory Data Labs 24H Laboratory Tests 2 03/31/21 06:03: Nucleated Red Blood Cells % (auto) 0.0, Anion Gap 5L, Glomerular Filtration Rate 48.9, Estimated Mean Plasma Glucose 114H, Hemoglobin A1c 5.6, Calcium Level 8 .7L, Magnesium Level 2.1, Triglycerides Level 121, Total Cholesterol 143, LDL Cholesterol 85, Non-HDL Cholesterol (LDL + VLDL) 109, Total HDL Cholesterol 34L, Cholesterol/HDL Ratio 4.205 CBC/BMP Laboratory Tests 03/30/21 23:36 03/31/21 06:03 Microbiology Microbiology 03/30/21 Blood Culture - Preliminary, Resulted No growth after 24 hours . All specim... 03/30/21 Blood Culture - Preliminary, Resulted No growth after 24 hours . All specim... 03/30/21 Respiratory Virus Panel (PCR) ([facility]) - Final, Complete Discharge Medications Scheduled Allopurinol (Allopurinol) 100 Mg Tab, 200 MG PO DAILY, (Reported) Amlodipine Besylate (Amlodipine Besylate) 5 Mg Tab, 5 MG PO QHS, (Reported) Ascorbic Acid (Vitamin C) 500 Mg Tab, 500 MG PO DAILY, (Reported) Aspirin (Aspirin EC) 81 Mg Tabec, 81 MG PO DAILY, (Reported) Calcium Polycarbophil (Fibercon) 625 Mg Tablet, 625 MG PO DAILY, (Reported) Carboxymethylcellulose Sodium (Refresh Tears) 15 Ml Drops, 1 DROP OU DAILY, (Reported) Ferrous Sulfate (Ferrous Sulfate) 325 Mg Tab, 325 MG PO DAILY, (Reported) Furosemide (Furosemide) 40 Mg Tablet, 40 MG PO Q2D, (Reported) Lisinopril (Lisinopril) 20 Mg Tab, 20 MG PO BID, (Reported) Multivitamin (Multivitamins) 1 Each Tablet, 1 TAB PO DAILY, (Reported) [place]-3 Fatty Acids/Fish Oil ([place] 3 Fish Oil Softgel) 1 Each Capsule.dr, 1 CAP PO DAILY, (Reported) Tamsulosin HCl (Flomax) 0.4 Mg Cap, 0.4 MG PO DAILY, (Reported) Vitamin B Complex (Vitamin B Complex) 1 Each Tablet, 1 TAB PO DAILY, (Reported) Vitamin E (Vitamin E) 400 Unit Capsule, 400 UNIT PO DAILY, (Reported) Scheduled PRN Indomethacin (Indomethacin) 25 Mg Cap, 50 MG PO DAILY PRN for GOUT FLAREUP, (Reported) Allergies Coded Allergies: No Known Allergies (Unverified , 07/02/16) LUIZ ELLIOTT DO Mar 31, 2021 22:00
== END 2021-03-31 17:10 | disposition home or self-care (01) | DRG 305 ==
LOC: M ED 15:36 → M ED INP 18:39 → ENRESERV 03-31 16:37
PROVIDERS: ADMIT Family Medicine; ATTEND Family Medicine
DX: I16.0 Hypertensive urgency (principal); I50.32 Chronic diastolic (congestive) heart failure; G93.40 Encephalopathy, unspecified; N18.30 Chronic kidney disease, stage 3 unspecified; E66.9 Obesity, unspecified; M10.9 Gout, unspecified; I13.0 Hypertensive heart and chronic kidney disease with heart failure and stage 1 through stage 4 chronic kidney disease, or unspecified chronic kidney disease; E78.5 Hyperlipidemia, unspecified; Z66 Do not resuscitate; Z20.822 Contact with and (suspected) exposure to COVID-19; Z79.82 Long term (current) use of aspirin; Z79.899 Other long term (current) drug therapy

== ENCOUNTER → 2021-04-05 | Outpatient (REF) | payer MEDICARE ==
[~2021-04-05] MED LIST changes: +EQL50TAB2 PO; +FIBE625T PO; +FURO40TA2 PO; +MULT-40 PO; +OMEG12002 PO; +REFR0.5D8 OU; +VITA400C53 PO
[2021-04-05 17:49] LABS: ALBUMIN 3.4 GM/DL (3.2-5.2); ALT/SGPT 33 U/L (12-78); BILIRUBIN,TOTAL 0.4 MG/DL (0.2-1.0); BLOOD UREA NITROGEN 14 MG/DL (7-18); CALCIUM LEVEL 9.2 MG/DL (8.8-10.2); CARBON DIOXIDE LEVEL 33 MEQ/L (21-32); CHLORIDE LEVEL 106 MEQ/L (98-107); CREATININE FOR GFR 1.22 MG/DL (0.70-1.30); GLOMERULAR FILTRATION RATE > 60.0 (>42); GLUCOSE, FASTING 78 MG/DL (70-100); POTASSIUM SERUM 4.9 MEQ/L (3.5-5.1); SODIUM LEVEL 141 MEQ/L (136-145); TOTAL PROTEIN 6.9 GM/DL (6.4-8.2)
== END ==
LOC: M SFHCADAM 11:47
PROVIDERS: ATTEND Physician Assistant Medical
DX: I10 Essential (primary) hypertension (principal)
CPT/HCPCS: 80053; G0463

== ENCOUNTER → 2021-04-26 | Outpatient (CLI) | payer MEDICARE ==
[2021-04-26 10:20] LABS: BASO # 0.1 10^3/uL (0.0-0.2); BASO % 0.6 % (0.0-1.0); EOS # 0.4 10^3/uL (0.0-0.5); EOS % 4.9 % (0.0-3.0); HEMATOCRIT 43.6 % (42.0-52.0); HEMOGLOBIN 14.3 g/dl (13.5-17.5); LYMPH # 1.7 10^3/uL (1.5-5.0); LYMPH % 20.5 % (24.0-44.0); MEAN CORPUSCULAR HEMOGLOBIN 31.2 pg (27.0-33.0); MEAN CORPUSCULAR HGB CONC 32.8 g/dl (32.0-36.5); MONO # 0.8 10^3/uL (0.0-0.8); MONO % 9.2 % (2.0-8.0); NEUTROPHILS # 5.5 10^3/uL (1.5-8.5); NEUTROPHILS % 64.2 % (36.0-66.0); RED BLOOD COUNT 4.59 10^6/uL (4.30-6.10); WHITE BLOOD COUNT 8.5 10^3/uL (4.0-10.0)
[2021-04-26 10:30] LABS: HEMOGLOBIN A1c 5.7 %
[2021-04-26 10:42] LABS: ALBUMIN 3.6 GM/DL (3.2-5.2); BILIRUBIN,TOTAL 0.4 MG/DL (0.2-1.0); CALCIUM LEVEL 9.5 MG/DL (8.8-10.2); CHOLESTEROL RISK RATIO 4.785 (<5); CREATININE FOR GFR 1.4 MG/DL (0.70-1.30); GLOMERULAR FILTRATION RATE 52.6 (>42); POTASSIUM SERUM 4.4 MEQ/L (3.5-5.1); THYROID STIMULATING HORMONE 2.69 uIU/ML (0.358-3.740); TOTAL 25(OH) VITAMIN D 34.8 NG/ML (30.0-100.0); TOTAL PROTEIN 7.3 GM/DL (6.4-8.2)
[2021-04-26 10:50] LABS: PLATELET COUNT, AUTOMATED 174 10^3/uL (150-450)
== END ==
LOC: M PLALAB 08:29
PROVIDERS: ATTEND Physician Assistant Medical
DX: N18.31 Chronic kidney disease, stage 3a (principal); E66.01 Morbid (severe) obesity due to excess calories; M10.9 Gout, unspecified; E78.5 Hyperlipidemia, unspecified; E78.1 Pure hyperglyceridemia; D50.9 Iron deficiency anemia, unspecified; Z79.899 Other long term (current) drug therapy

== ENCOUNTER → 2021-07-11 | Outpatient (CLI) | payer MEDICARE ==
[~2021-07-11] MED LIST changes: +ISOVUE-300 61% 50ML VIAL As Ordered ONE; +LIDOCAINE 1% MDV 20ML VIAL As Ordered ONE
== END ==
LOC: M RADPRO 09:13
PROVIDERS: ATTEND Orthopaedic Surgery
DX: M23.222 Derangement of posterior horn of medial meniscus due to old tear or injury, left knee (principal); M17.12 Unilateral primary osteoarthritis, left knee
CPT/HCPCS: 27369; 73701; 77002; Q9967

== ENCOUNTER → 2021-10-22 | Outpatient (CLI) | payer MEDICARE ==
[~2021-10-22] MED LIST changes: -ISOVUE-300 61% 50ML VIAL As Ordered ONE; -LIDOCAINE 1% MDV 20ML VIAL As Ordered ONE
[2021-10-22 10:30] LABS: BASO % 0.6 % (0.0-1.0); EOS # 0.3 10^3/uL (0.0-0.5); EOS % 4.5 % (0.0-3.0); HEMATOCRIT 41.6 % (42.0-52.0); HEMOGLOBIN 13.3 g/dl (13.5-17.5); LYMPH # 1.6 10^3/uL (1.5-5.0); LYMPH % 23.8 % (24.0-44.0); MEAN CORPUSCULAR HEMOGLOBIN 31.6 pg (27.0-33.0); MEAN CORPUSCULAR VOLUME 98.8 fl (80.0-96.0); MONO # 0.7 10^3/uL (0.0-0.8); NEUTROPHILS % 60.5 % (36.0-66.0); PLATELET COUNT, AUTOMATED 201 10^3/uL (150-450); RED BLOOD COUNT 4.21 10^6/uL (4.30-6.10); WHITE BLOOD COUNT 6.6 10^3/uL (4.0-10.0)
[2021-10-22 11:31] LABS: MALB URINE SIEMENS 7.4 MG/L; MAU/CREAT RATIO 5.9 MCG/MG (0.0-30.0)
[2021-10-22 11:37] LABS: HEMOGLOBIN A1c 5.8 %
[2021-10-22 12:30] LABS: ALBUMIN 3.5 GM/DL (3.2-5.2); BILIRUBIN,TOTAL 0.4 MG/DL (0.2-1.0); CALCIUM LEVEL 9.6 MG/DL (8.8-10.2); CHOLESTEROL RISK RATIO 4.82 (<5); CREATININE FOR GFR 1.62 MG/DL (0.70-1.30); GLOMERULAR FILTRATION RATE 44.4 (>42); POTASSIUM SERUM 4.3 MEQ/L (3.5-5.1); THYROID STIMULATING HORMONE 1.97 uIU/ML (0.358-3.740); TOTAL PROTEIN 6.9 GM/DL (6.4-8.2); URIC ACID 8.5 MG/DL (3.5-7.2)
== END ==
LOC: M WUC 08:15
PROVIDERS: ATTEND Physician Assistant Medical
DX: M10.9 Gout, unspecified (principal); E78.5 Hyperlipidemia, unspecified; E78.1 Pure hyperglyceridemia; D50.9 Iron deficiency anemia, unspecified; Z79.899 Other long term (current) drug therapy

== ENCOUNTER → 2021-12-19 | Outpatient (CLI) | payer MEDICARE ==
[2021-12-20 23:11] LABS: PSA % FREE 39.4 % (.); PSA FREE 2.6 ng/mL; PSA TOTAL 6.6 ng/mL (0.0-4.0)
== END ==
LOC: M PLALAB 09:36
PROVIDERS: ATTEND Nurse Practitioner Family
DX: R97.20 Elevated prostate specific antigen [PSA] (principal)

== ENCOUNTER → 2021-12-20 | Outpatient (CLI) | payer MEDICARE | LOC: M PLAIMG 11:54 | PROVIDERS: ATTEND Nurse Practitioner Women's Health | DX: N20.0 Calculus of kidney (principal) ==

== ENCOUNTER → 2022-04-29 | Outpatient (CLI) | payer MEDICARE ==
[2022-04-29 11:36] LABS: BASO % 0.5 % (0.0-1.0); EOS # 0.3 10^3/uL (0.0-0.5); EOS % 4.2 % (0.0-3.0); HEMATOCRIT 44.2 % (42.0-52.0); LYMPH # 1.8 10^3/uL (1.5-5.0); LYMPH % 22.3 % (24.0-44.0); MEAN CORPUSCULAR HEMOGLOBIN 31.2 pg (27.0-33.0); MEAN CORPUSCULAR HGB CONC 31.7 g/dl (32.0-36.5); MEAN CORPUSCULAR VOLUME 98.4 fl (80.0-96.0); MONO # 0.8 10^3/uL (0.0-0.8); MONO % 9.2 % (2.0-8.0); NEUTROPHILS # 5.1 10^3/uL (1.5-8.5); NEUTROPHILS % 63.4 % (36.0-66.0); PLATELET COUNT, AUTOMATED 193 10^3/uL (150-450); RED BLOOD COUNT 4.49 10^6/uL (4.30-6.10); WHITE BLOOD COUNT 8.1 10^3/uL (4.0-10.0)
[2022-04-29 12:14] LABS: CREATININE, URINE 147.8 MG/DL
[2022-04-29 12:15] LABS: MAU/CREAT RATIO 9.4 MCG/MG (0.0-30.0)
[2022-04-29 12:25] LABS: TOTAL IRON BINDING CAPACITY 285 UG/DL (250-425)
[2022-04-29 12:26] LABS: ALBUMIN 3.5 G/DL (3.2-5.2); ALKALINE PHOSPHATASE 71 U/L (46-116); ALT/SGPT 29 U/L (7.0-40); AST/SGOT 25 U/L (<34); BILIRUBIN,TOTAL 0.5 MG/DL (0.3-1.2); BLOOD UREA NITROGEN 23 MG/DL (9-23); CARBON DIOXIDE LEVEL 31 MMOL/L (20-31); CHLORIDE LEVEL 105 MMOL/L (98-107); CHOLESTEROL LEVEL 120 MG/DL (<200); CREATININE FOR GFR 1.33 MG/DL (0.70-1.30); FERRITIN 228.6 NG/ML (10.5-307.3); GLOMERULAR FILTRATION RATE 55.7 (>42); GLUCOSE, FASTING 82 MG/DL (74-106); HDL CHOLESTEROL 41.3 MG/DL (>40); IRON (FE) 65 UG/DL (65-175); LDL CHOLESTEROL 58.5 MG/DL (<100); NON-HDL-C 79 MG/DL; PERCENT SATURATION 22.8 % (19.7-50.0); POTASSIUM SERUM 4.8 MMOL/L (3.5-5.1); SODIUM LEVEL 142 MMOL/L (136-145); THYROID STIMULATING HORMONE 1.865 uIU/ML (0.55-4.78); TOTAL 25(OH) VITAMIN D 32.3 NG/ML (20.0-100.0); TOTAL PROTEIN 6.7 G/DL (5.7-8.2); TRIGLYCERIDES LEVEL 101 MG/DL (<150)
[2022-04-29 12:28] LABS: VITAMIN B12 LEVEL 362 PG/ML (211-911)
[2022-04-29 12:58] LABS: HEMOGLOBIN A1c 5.2 % (4.0-6.0)
[2022-04-29 14:41] LABS: FOLATE > 24.00 NG/ML (>5.4)
== END ==
LOC: M WUC 08:19
PROVIDERS: ATTEND Physician Assistant Medical
DX: M10.9 Gout, unspecified (principal); E78.1 Pure hyperglyceridemia; D50.9 Iron deficiency anemia, unspecified; I50.32 Chronic diastolic (congestive) heart failure; N18.31 Chronic kidney disease, stage 3a

== ENCOUNTER → 2022-10-15 | Outpatient (CLI) | payer MEDICARE ==
[2022-10-15 10:45] LABS: BASO % 0.6 % (0.0-1.0); EOS # 0.3 10^3/uL (0.0-0.5); EOS % 3.6 % (0.0-3.0); HEMATOCRIT 42.4 % (42.0-52.0); HEMOGLOBIN 14.1 g/dl (13.5-17.5); LYMPH # 1.7 10^3/uL (1.5-5.0); LYMPH % 24.6 % (24.0-44.0); MEAN CORPUSCULAR HEMOGLOBIN 31.9 pg (27.0-33.0); MEAN CORPUSCULAR HGB CONC 33.3 g/dl (32.0-36.5); MEAN CORPUSCULAR VOLUME 95.9 fl (80.0-96.0); MONO # 0.7 10^3/uL (0.0-0.8); MONO % 9.4 % (2.0-8.0); NEUTROPHILS # 4.3 10^3/uL (1.5-8.5); NEUTROPHILS % 61.5 % (36.0-66.0); PLATELET COUNT, AUTOMATED 183 10^3/uL (150-450); RED BLOOD COUNT 4.42 10^6/uL (4.30-6.10)
[2022-10-15 11:20] LABS: ALBUMIN 3.4 G/DL (3.2-5.2); ALKALINE PHOSPHATASE 73 U/L (46-116); ALT/SGPT 27 U/L (7.0-40); AST/SGOT 32 U/L (<34); BILIRUBIN,TOTAL 0.7 MG/DL (0.3-1.2); BLOOD UREA NITROGEN 20 MG/DL (9-23); CALCIUM LEVEL 8.5 MG/DL (8.3-10.6); CARBON DIOXIDE LEVEL 25 MMOL/L (20-31); CHLORIDE LEVEL 109 MMOL/L (98-107); CHOLESTEROL LEVEL 119 MG/DL (<200); CHOLESTEROL RISK RATIO 2.74 (<5); CREATININE FOR GFR 1.11 MG/DL (0.70-1.30); GLOMERULAR FILTRATION RATE > 60.0 (>42); GLUCOSE, FASTING 81 MG/DL (74-106); HDL CHOLESTEROL 43.3 MG/DL (>40); LDL CHOLESTEROL 53.1 MG/DL (<100); NON-HDL-C 75.7 MG/DL; POTASSIUM SERUM 4.8 MMOL/L (3.5-5.1); SODIUM LEVEL 142 MMOL/L (136-145); TOTAL PROTEIN 6.3 G/DL (5.7-8.2); TRIGLYCERIDES LEVEL 113 MG/DL (<150)
[2022-10-15 11:23] LABS: TOTAL 25(OH) VITAMIN D 38.4 NG/ML (20.0-100.0)
[2022-10-15 11:24] LABS: THYROID STIMULATING HORMONE 1.711 uIU/ML (0.55-4.78)
== END ==
LOC: M WUC 08:16
PROVIDERS: ATTEND Physician Assistant Medical
DX: M10.9 Gout, unspecified (principal); I10 Essential (primary) hypertension; E66.01 Morbid (severe) obesity due to excess calories; E78.5 Hyperlipidemia, unspecified; E78.1 Pure hyperglyceridemia; D50.9 Iron deficiency anemia, unspecified

== ENCOUNTER → 2023-01-02 | Outpatient (CLI) | payer MEDICARE | LOC: M PLALAB 09:26 | PROVIDERS: ATTEND Physician Assistant | DX: R97.20 Elevated prostate specific antigen [PSA] (principal) ==

== ENCOUNTER → 2023-01-09 | Outpatient (CLI) | payer MEDICARE | LOC: M PLAIMG 09:39 | PROVIDERS: ATTEND Physician Assistant | DX: N20.0 Calculus of kidney (principal) ==

== ENCOUNTER → 2023-04-20 | Outpatient (REF) | payer MEDICARE ==
[2023-04-20 13:47] LABS: BASO % 0.3 % (0.0-1.0); EOS # 0.2 10^3/uL (0.0-0.5); EOS % 3.5 % (0.0-3.0); HEMATOCRIT 45.7 % (42.0-52.0); HEMOGLOBIN 14.9 g/dl (13.5-17.5); LYMPH # 1.7 10^3/uL (1.5-5.0); LYMPH % 27.3 % (24.0-44.0); MEAN CORPUSCULAR HEMOGLOBIN 31.6 pg (27.0-33.0); MEAN CORPUSCULAR HGB CONC 32.6 g/dl (32.0-36.5); MEAN CORPUSCULAR VOLUME 96.8 fl (80.0-96.0); MONO # 0.6 10^3/uL (0.0-0.8); MONO % 10.2 % (2.0-8.0); NEUTROPHILS # 3.7 10^3/uL (1.5-8.5); NEUTROPHILS % 58.2 % (36.0-66.0); PLATELET COUNT, AUTOMATED 200 10^3/uL (150-450); RED BLOOD COUNT 4.72 10^6/uL (4.30-6.10); WHITE BLOOD COUNT 6.3 10^3/uL (4.0-10.0)
[2023-04-20 14:10] LABS: URIC ACID 6.7 MG/DL (3.7-9.2)
[2023-04-20 14:17] LABS: HEMOGLOBIN A1c 5.2 % (4.0-6.0)
[2023-04-20 14:19] LABS: ALBUMIN 3.6 G/DL (3.2-5.2); ALKALINE PHOSPHATASE 72 U/L (46-116); ALT/SGPT 26 U/L (7.0-40); AST/SGOT 21 U/L (<34); BILIRUBIN,TOTAL 0.7 MG/DL (0.3-1.2); BLOOD UREA NITROGEN 19 MG/DL (9-23); CALCIUM LEVEL 9.6 MG/DL (8.3-10.6); CARBON DIOXIDE LEVEL 32 MMOL/L (20-31); CHLORIDE LEVEL 103 MMOL/L (98-107); CHOLESTEROL LEVEL 144 MG/DL (<200); CHOLESTEROL RISK RATIO 3.23 (<5); CREATININE FOR GFR 1.19 MG/DL (0.70-1.30); GLOMERULAR FILTRATION RATE > 60.0 (>42); GLUCOSE, FASTING 87 MG/DL (74-106); HDL CHOLESTEROL 44.5 MG/DL (>40); LDL CHOLESTEROL 70.5 MG/DL (<100); NON-HDL-C 99.5 MG/DL; POTASSIUM SERUM 4.6 MMOL/L (3.5-5.1); SODIUM LEVEL 141 MMOL/L (136-145); THYROID STIMULATING HORMONE 1.893 uIU/ML (0.55-4.78); TOTAL 25(OH) VITAMIN D 36.5 NG/ML (20.0-100.0); TOTAL PROTEIN 6.6 G/DL (5.7-8.2); TRIGLYCERIDES LEVEL 145 MG/DL (<150)
== END ==
LOC: M SFHCADAM 08:36
PROVIDERS: ATTEND Physician Assistant Medical
DX: I10 Essential (primary) hypertension (principal); M10.9 Gout, unspecified; E78.5 Hyperlipidemia, unspecified; E78.1 Pure hyperglyceridemia; Z79.899 Other long term (current) drug therapy

== ENCOUNTER 2023-06-13 00:03 | Emergency (ER) | payer MEDICARE ==
[~2023-06-13] VITALS: Ht 177.8 cm; Wt 113.9 kg
[2023-06-13] MEDS: NS 1,000 ML IV ONE (01:11)
[2023-06-13 01:27] LABS: VENOUS O2 SATURATION 68.1 % (60.0-80.0); VENOUS PARTIAL PRESSURE CO2 50.1 mmHg (38.0-50.0); VENOUS PARTIAL PRESSURE O2 38.6 mmHg (30.0-50.0); VENOUS PH 7.299 UNITS (7.330-7.430); VENOUS STANDARD HCO3 21.3 MMOL/L; VENOUS TOTAL CO2 25.6 MMOL/L (24.0-28.0)
[2023-06-13 01:37] LABS: BASO % 0.5 % (0.0-1.0); EOS # 0.1 10^3/uL (0.0-0.5); EOS % 2.1 % (0.0-3.0); HEMATOCRIT 44.5 % (42.0-52.0); HEMOGLOBIN 15.1 g/dl (13.5-17.5); LYMPH # 1.1 10^3/uL (1.5-5.0); LYMPH % 16.1 % (24.0-44.0); MEAN CORPUSCULAR HEMOGLOBIN 32.1 pg (27.0-33.0); MEAN CORPUSCULAR HGB CONC 33.9 g/dl (32.0-36.5); MEAN CORPUSCULAR VOLUME 94.5 fl (80.0-96.0); MONO # 0.5 10^3/uL (0.0-0.8); MONO % 8.1 % (2.0-8.0); NEUTROPHILS # 4.9 10^3/uL (1.5-8.5); NEUTROPHILS % 72.7 % (36.0-66.0); PLATELET COUNT, AUTOMATED 192 10^3/uL (150-450); RED BLOOD COUNT 4.71 10^6/uL (4.30-6.10); WHITE BLOOD COUNT 6.7 10^3/uL (4.0-10.0)
[2023-06-13 01:54] LABS: ETHYL ALCOHOL (ETHANOL) 0.006 % (0.000-0.010)
[2023-06-13 01:56] LABS: SALICYLATE LEVEL < 3.0 MG/DL (<30)
[2023-06-13 01:57] LABS: ALBUMIN 3.9 G/DL (3.2-5.2); ALKALINE PHOSPHATASE 93 U/L (46-116); ALT/SGPT 24 U/L (7.0-40); AST/SGOT 19 U/L (<34); BILIRUBIN,DIRECT 0.1 MG/DL (<0.4); BILIRUBIN,TOTAL 0.4 MG/DL (0.3-1.2); BLOOD UREA NITROGEN 24 MG/DL (9-23); CALCIUM LEVEL 9.2 MG/DL (8.3-10.6); CARBON DIOXIDE LEVEL 28 MMOL/L (20-31); CHLORIDE LEVEL 106 MMOL/L (98-107); CK-MB VALUE MASS < 1.0 NG/ML (<3.6); CPK CREATINE PHOSPHOKINASE 99 U/L (46-171); CREATININE FOR GFR 1.27 MG/DL (0.70-1.30); GLOMERULAR FILTRATION RATE 58.5 (>42); GLUCOSE, FASTING 109 MG/DL (74-106); MB/CK RELATIVE INDEX 1.01 (< OR =4); POTASSIUM SERUM 3.9 MMOL/L (3.5-5.1); SODIUM LEVEL 141 MMOL/L (136-145); TOTAL PROTEIN 7.2 G/DL (5.7-8.2)
[2023-06-13 01:59] LABS: THYROID STIMULATING HORMONE 4.598 uIU/ML (0.55-4.78)
[2023-06-13 04:28] LABS: AMPHETAMINES LEVEL URINE NEGATIVE (NEGATIVE); BARBITURATES URINE NEGATIVE (NEGATIVE); BENZODIAZEPINES URINE NEGATIVE (NEGATIVE); CANNABINOIDS URINE NEGATIVE (NEGATIVE); COCAINE METABOLITE URINE NEGATIVE (NEGATIVE); METHADONE URINE NEGATIVE (NEGATIVE); OPIATES URINE NEGATIVE (NEGATIVE); PHENCYCLIDINE URINE NEGATIVE (NEGATIVE)
[2023-06-13 04:41] LABS: RSV AMPLIFICATION NEGATIVE (NEGATIVE)
[2023-06-13 05:08] VITALS: BP 174/83; TEMP 98.9; O2SAT 96
[2023-06-13] MEDS ORDERED: KEPP250T5 PO (05:50)
[2023-06-13] MEDS: levETIRAcetam INJection 500 MG in D5W MINI-BAG PLUS 100 ML IV ONE (05:58)
[2023-06-13] MEDS ORDERED: [UNRECOGNIZED DRUG - OTHER] PO (19:57)
[2023-06-13] MEDS ORDERED: GO LO PO (19:57)
[2023-06-13] MEDS ORDERED: VITA180C2 PO (19:57)
[2023-06-13] MEDS ORDERED: SIMV40TA20 PO (19:57)
[2023-06-18] MEDS ORDERED: CEFU50TA PO (11:39)
[2023-06-18] MEDS ORDERED: KEPP1TAB PO (11:39)
== END 2023-06-13 06:32 | disposition home or self-care (01) ==
LOC: EDBD 00:03 → M ED 00:03
DX: R56.9 Unspecified convulsions (principal); E78.5 Hyperlipidemia, unspecified; I50.9 Heart failure, unspecified; I10 Essential (primary) hypertension; N18.30 Chronic kidney disease, stage 3 unspecified; Z79.899 Other long term (current) drug therapy

== ENCOUNTER 2023-06-13 17:52 | Inpatient (IN) | payer MEDICARE ==
[~2023-06-13] VITALS: Ht 172.7 cm; Wt 111.7 kg
[2023-06-13] VITALS (10 sets, daily range): BP systolic 114–150; BP diastolic 68–74; TEMP 97.5; O2SAT 96–98
[~2023-06-13 17:52] MED LIST changes: +KEPP250T5 PO
[2023-06-13 18:16] LABS: VENOUS BASE EXCESS -4.6 (-2.0-2.0); VENOUS HCO3 19.9 MMOL/L (23.0-27.0); VENOUS O2 SATURATION 98.9 % (60.0-80.0); VENOUS PARTIAL PRESSURE CO2 35.3 mmHg (38.0-50.0); VENOUS PARTIAL PRESSURE O2 142.8 mmHg (30.0-50.0); VENOUS PH 7.369 UNITS (7.330-7.430); VENOUS STANDARD HCO3 20.8 MMOL/L
[2023-06-13] MEDS ORDERED: LORazepam 2 MG/ML 1ML VIAL IV PRN (18:25)
[2023-06-13] MEDS ORDERED: ROCURONIUM BROMIDE 50MG/5ML VIAL IV ONE (18:35)
[2023-06-13] MEDS ORDERED: propofoL 1,000 MG in IV 1 EA IV SCH (18:35)
[2023-06-13] MEDS ORDERED: ETOMIDATE INJ 20MG/10ML VIAL IV ONE (18:35)
[2023-06-13 18:38] LABS: OSMOLALITY SERUM 303 MOSM/KG (280-301)
[2023-06-13] MEDS ORDERED: LEVETIRACETAM IV ONE (18:45)
[2023-06-13] MEDS ORDERED: D5W IV ONE (18:45)
[2023-06-13 18:50] LABS: ALBUMIN 3.5 G/DL (3.2-5.2); ALKALINE PHOSPHATASE 75 U/L (46-116); ALT/SGPT 25 U/L (7.0-40); AST/SGOT 41 U/L (<34); BILIRUBIN,DIRECT 0.1 MG/DL (<0.4); BILIRUBIN,TOTAL 0.4 MG/DL (0.3-1.2); BLOOD UREA NITROGEN 22 MG/DL (9-23); CARBON DIOXIDE LEVEL 26 MMOL/L (20-31); CHLORIDE LEVEL 111 MMOL/L (98-107); CREATININE FOR GFR 1.08 MG/DL (0.70-1.30); GLOMERULAR FILTRATION RATE > 60.0 (>42); GLUCOSE, FASTING 95 MG/DL (74-106); POTASSIUM SERUM 4.9 MMOL/L (3.5-5.1); SODIUM LEVEL 143 MMOL/L (136-145); TOTAL PROTEIN 6.6 G/DL (5.7-8.2)
[2023-06-13 19:12] LABS: RSV AMPLIFICATION NEGATIVE (NEGATIVE)
[2023-06-13 19:16] LABS: ABG BASE EXCESS -1.9 (-2.0-2.0); ABG HCO3 23.5 MMOL/L (22.0-26.0); ABG O2 SATURATION 94.5 % (95.0-99.0); ABG PARTIAL PRESSURE CO2 42.5 mmHg (35.0-45.0); ABG PARTIAL PRESSURE O2 74.7 mmHg (75.0-100.0); ABG STANDARD HCO3 22.8 MMOL/L. (22.0-26.0); ABG TOTAL CO2 24.8 MMOL/L (23.0-31.0); ABG pH (ARTERIAL) 7.361 UNITS (7.350-7.450)
[2023-06-13] MEDS ORDERED: SIMV40TA20 PO (19:57)
[2023-06-13] MEDS ORDERED: VITA180C2 PO (19:57)
[2023-06-13] MEDS ORDERED: [UNRECOGNIZED DRUG - OTHER] PO (19:57)
[2023-06-13] MEDS ORDERED: GO LO PO (19:57)
[2023-06-13] MEDS ORDERED: HOME MED LIST COMPLETE! XX SCH (20:00)
[2023-06-13 20:11] LABS: AMPHETAMINES LEVEL URINE NEGATIVE (NEGATIVE); BARBITURATES URINE NEGATIVE (NEGATIVE); BENZODIAZEPINES URINE NEGATIVE (NEGATIVE); CANNABINOIDS URINE NEGATIVE (NEGATIVE); COCAINE METABOLITE URINE NEGATIVE (NEGATIVE); METHADONE URINE NEGATIVE (NEGATIVE); OPIATES URINE NEGATIVE (NEGATIVE); PHENCYCLIDINE URINE NEGATIVE (NEGATIVE)
[2023-06-13] MEDS: D5W/LR 1,000 ML IV SCH (20:43)
[2023-06-13] MEDS: MIDAZOLAM INJ 2MG/2ML VIAL IV PRN (21:29)
[2023-06-13 21:30] LABS: BASO % 0.4 % (0.0-1.0); EOS # 0.2 10^3/uL (0.0-0.5); EOS % 2.2 % (0.0-3.0); HEMATOCRIT 42.7 % (42.0-52.0); HEMOGLOBIN 14.1 g/dl (13.5-17.5); LYMPH # 2.2 10^3/uL (1.5-5.0); LYMPH % 20.5 % (24.0-44.0); MEAN CORPUSCULAR HEMOGLOBIN 31.7 pg (27.0-33.0); MONO # 1.7 10^3/uL (0.0-0.8); MONO % 15.4 % (2.0-8.0); NEUTROPHILS # 6.6 10^3/uL (1.5-8.5); NEUTROPHILS % 61.1 % (36.0-66.0); PLATELET COUNT, AUTOMATED 182 10^3/uL (150-450); RED BLOOD COUNT 4.45 10^6/uL (4.30-6.10); WHITE BLOOD COUNT 10.8 10^3/uL (4.0-10.0)
[2023-06-13] MEDS: propofoL 1,000 MG in IV 1 EA IV SCH (22:47)
[2023-06-14] VITALS (47 sets, daily range): BP systolic 112–171; BP diastolic 57–111; TEMP 97–101.9; O2SAT 88–98
[2023-06-14] MEDS: MIDAZOLAM INJ 2MG/2ML VIAL IV PRN (00:10)
[2023-06-14 00:19] LABS: ALBUMIN 3.1 G/DL (3.2-5.2); ALKALINE PHOSPHATASE 61 U/L (46-116); ALT/SGPT 22 U/L (7.0-40); AST/SGOT 25 U/L (<34); BILIRUBIN,TOTAL 0.6 MG/DL (0.3-1.2); BLOOD UREA NITROGEN 22 MG/DL (9-23); CALCIUM LEVEL 8.6 MG/DL (8.3-10.6); CARBON DIOXIDE LEVEL 24 MMOL/L (20-31); CHLORIDE LEVEL 111 MMOL/L (98-107); GLOMERULAR FILTRATION RATE > 60.0 (>42); GLUCOSE, FASTING 108 MG/DL (74-106); POTASSIUM SERUM 4.1 MMOL/L (3.5-5.1); SODIUM LEVEL 144 MMOL/L (136-145); TOTAL PROTEIN 5.8 G/DL (5.7-8.2)
[2023-06-14] MEDS: propofoL 1,000 MG in IV 1 EA IV SCH ×2 (03:04→07:06)
[2023-06-14] MEDS: PANTOPRAZOLE 40MG VIAL IV SCH ×2 (05:54→20:27)
[2023-06-14] MEDS: D5W/LR 1,000 ML IV SCH (05:54)
[2023-06-14 06:01] LABS: MAGNESIUM LEVEL 1.8 MG/DL (1.8-2.4); PHOSPHORUS LEVEL 3.4 MG/DL (2.4-5.1)
[2023-06-14] MEDS: levETIRAcetam INJection 500 MG in D5W MINI-BAG PLUS 100 ML IV SCH ×2 (08:35→20:27)
[2023-06-14] MEDS: TAMSULOSIN 0.4 MG CAP PO SCH (09:00)
[2023-06-14] MEDS ORDERED: PANTOPRAZOLE 40MG VIAL IV SCH (09:00)
[2023-06-14] MEDS: allopurinoL 100 MG TAB PO SCH (09:00)
[2023-06-14] MEDS ORDERED: LORazepam 2 MG/ML 1ML VIAL IV PRN (18:25)
[2023-06-14 19:11] LABS: BASO % 0.2 % (0.0-1.0); EOS % 0.2 % (0.0-3.0); HEMATOCRIT 41.1 % (42.0-52.0); HEMOGLOBIN 13.8 g/dl (13.5-17.5); LYMPH # 1.7 10^3/uL (1.5-5.0); LYMPH % 13.3 % (24.0-44.0); MEAN CORPUSCULAR HEMOGLOBIN 31.9 pg (27.0-33.0); MEAN CORPUSCULAR HGB CONC 33.6 g/dl (32.0-36.5); MEAN CORPUSCULAR VOLUME 94.9 fl (80.0-96.0); MONO # 1.3 10^3/uL (0.0-0.8); MONO % 10.6 % (2.0-8.0); NEUTROPHILS # 9.4 10^3/uL (1.5-8.5); NEUTROPHILS % 75.5 % (36.0-66.0); PLATELET COUNT, AUTOMATED 154 10^3/uL (150-450); RED BLOOD COUNT 4.33 10^6/uL (4.30-6.10); WHITE BLOOD COUNT 12.5 10^3/uL (4.0-10.0)
[2023-06-14] MEDS: cefTRIAXone SOD 2 GM in D5W MINI-BAG PLUS 50 ML IV SCH (19:16)
[2023-06-14] MEDS: ACETAMINOPHEN TAB 650MG DOSE (2X325MG) PO PRN (19:17)
[2023-06-14 19:35] LABS: BLOOD UREA NITROGEN 18 MG/DL (9-23); CALCIUM LEVEL 8.5 MG/DL (8.3-10.6); CARBON DIOXIDE LEVEL 30 MMOL/L (20-31); CHLORIDE LEVEL 109 MMOL/L (98-107); CREATININE FOR GFR 1.19 MG/DL (0.70-1.30); GLOMERULAR FILTRATION RATE > 60.0 (>42); GLUCOSE, FASTING 111 MG/DL (74-106); POTASSIUM SERUM 4.1 MMOL/L (3.5-5.1); SODIUM LEVEL 144 MMOL/L (136-145)
[2023-06-14] MEDS ORDERED: HALOPERIDOL 5MG/ML 1ML VIAL IM STA (20:34)
[2023-06-14] MEDS ORDERED: MORPHINE 2 MG/ML 1ML VIAL IV ONE (21:05)
[2023-06-14] MEDS ORDERED: LORazepam 2 MG/ML 1ML VIAL IV STA (21:12)
[2023-06-14 21:27] LABS: APPEARANCE, URINE CLEAR (CLEAR); BACTERIA, URINE AUTO 1+ (NEGATIVE); BILIRUBIN, URINE AUTO NEGATIVE (NEGATIVE); BLOOD, URINE BLOOD 3+ (NEGATIVE); COLOR, URINE STRAW (YELLOW); GLUCOSE, URINE (UA) AUTO NEGATIVE (NEGATIVE); KETONE, URINE AUTO NEGATIVE (NEGATIVE); LEUKOCYTE ESTERASE, URINE AUTO TRACE (NEGATIVE); MUCUS, URINE SMALL (NEGATIVE); NITRITE, URINE AUTO NEGATIVE (NEGATIVE); PROTEIN, URINE AUTO 1+ mg/dL (NEGATIVE); RBC, URINE AUTO 12 /HPF (0-3); SPECIFIC GRAVITY URINE AUTO 1.004 (1.002-1.035); SQUAMOUS EPITHELIAL CELL UR AU 0 /HPF (0-6); UROBILINOGEN, URINE AUTO 0.2 mg/dL (0.0-2.0); WBC, URINE AUTO 2 /HPF (0-3)
[2023-06-14 22:05] LABS: ABG BASE EXCESS 0.9 (-2.0-2.0); ABG HCO3 25.5 MMOL/L (22.0-26.0); ABG O2 SATURATION 95.8 % (95.0-99.0); ABG PARTIAL PRESSURE CO2 40.6 mmHg (35.0-45.0); ABG PARTIAL PRESSURE O2 81.7 mmHg (75.0-100.0); ABG STANDARD HCO3 25.3 MMOL/L. (22.0-26.0); ABG TOTAL CO2 26.8 MMOL/L (23.0-31.0); ABG pH (ARTERIAL) 7.416 UNITS (7.350-7.450)
[2023-06-15] VITALS (7 sets, daily range): BP systolic 129–147; BP diastolic 63–90; TEMP 97.9–99; O2SAT 92–98
[2023-06-15] MEDS ORDERED: OLANZapine INTRAMUSCULAR 10MG VIAL IM ONE (01:40)
[2023-06-15] MEDS ORDERED: NS 500 ML IV ONE ×2 (02:55→04:10)
[2023-06-15] MEDS: D5W/0.9% SODIUM CHLORIDE 1,000 ML IV SCH ×2 (05:00→18:50)
[2023-06-15 05:33] LABS: BLOOD UREA NITROGEN 16 MG/DL (9-23); CALCIUM LEVEL 8.6 MG/DL (8.3-10.6); CARBON DIOXIDE LEVEL 28 MMOL/L (20-31); CHLORIDE LEVEL 110 MMOL/L (98-107); CREATININE FOR GFR 1.08 MG/DL (0.70-1.30); GLOMERULAR FILTRATION RATE > 60.0 (>42); GLUCOSE, FASTING 93 MG/DL (74-106); SODIUM LEVEL 144 MMOL/L (136-145)
[2023-06-15] MEDS ORDERED: ALBUTEROL SULFATE 2.5MG/0.5ML INH NEB SOLN NEB ONE (06:35)
[2023-06-15 07:19] LABS: BASO % 0.3 % (0.0-1.0); EOS # 0.2 10^3/uL (0.0-0.5); EOS % 1.6 % (0.0-3.0); HEMATOCRIT 39.9 % (42.0-52.0); LYMPH # 1.8 10^3/uL (1.5-5.0); LYMPH % 17.2 % (24.0-44.0); MEAN CORPUSCULAR HEMOGLOBIN 31.6 pg (27.0-33.0); MEAN CORPUSCULAR HGB CONC 32.6 g/dl (32.0-36.5); MEAN CORPUSCULAR VOLUME 96.8 fl (80.0-96.0); MONO # 1.3 10^3/uL (0.0-0.8); MONO % 13.1 % (2.0-8.0); NEUTROPHILS # 6.9 10^3/uL (1.5-8.5); NEUTROPHILS % 67.5 % (36.0-66.0); PLATELET COUNT, AUTOMATED 137 10^3/uL (150-450); RED BLOOD COUNT 4.12 10^6/uL (4.30-6.10); WHITE BLOOD COUNT 10.2 10^3/uL (4.0-10.0)
[2023-06-15] MEDS ORDERED: HALOPERIDOL 5MG/ML 1ML VIAL IV PRN (09:15)
[2023-06-15] MEDS ORDERED: LORazepam 2 MG/ML 1ML VIAL IV PRN (09:15)
[2023-06-15] MEDS: levETIRAcetam INJection 500 MG in D5W MINI-BAG PLUS 100 ML IV SCH (09:38)
[2023-06-15] MEDS: LACTULOSE 20GM/30ML SYRUP UDC PO SCH ×2 (09:38→21:00)
[2023-06-15] MEDS: BISACODYL 10MG SUPP PR SCH (09:39)
[2023-06-15] MEDS: TAMSULOSIN 0.4 MG CAP PO SCH (09:39)
[2023-06-15] MEDS: ENOXAPARIN 40MG/0.4ML SYRINGE (J1650 PER 10MG) SC SCH (09:39)
[2023-06-15] MEDS: PANTOPRAZOLE 40MG VIAL IV SCH ×2 (09:40→21:02)
[2023-06-15] MEDS: allopurinoL 100 MG TAB PO SCH (09:40)
[2023-06-15] MEDS ORDERED: OLANZapine ORAL DISINTEGRATING TAB 5MG PO PRN (11:55)
[2023-06-15] MEDS: QUEtiapine FUMARATE 25 MG TAB PO SCH ×2 (15:49→21:00)
[2023-06-15] MEDS: cefTRIAXone SOD 2 GM in D5W MINI-BAG PLUS 50 ML IV SCH (19:45)
[2023-06-15] MEDS ORDERED: levETIRAcetam INJection 1,000 MG in D5W 100 ML IV SCH (21:00)
[2023-06-16] VITALS (10 sets, daily range): BP systolic 137–160; BP diastolic 65–86; TEMP 97.7–100; O2SAT 85–96
[2023-06-16 05:24] LABS: BASO % 0.2 % (0.0-1.0); EOS # 0.3 10^3/uL (0.0-0.5); EOS % 3.4 % (0.0-3.0); HEMATOCRIT 40.1 % (42.0-52.0); HEMOGLOBIN 12.7 g/dl (13.5-17.5); LYMPH # 1.6 10^3/uL (1.5-5.0); LYMPH % 19.1 % (24.0-44.0); MEAN CORPUSCULAR HEMOGLOBIN 31.2 pg (27.0-33.0); MEAN CORPUSCULAR HGB CONC 31.7 g/dl (32.0-36.5); MEAN CORPUSCULAR VOLUME 98.5 fl (80.0-96.0); MONO # 1.1 10^3/uL (0.0-0.8); MONO % 12.8 % (2.0-8.0); NEUTROPHILS # 5.4 10^3/uL (1.5-8.5); NEUTROPHILS % 64.1 % (36.0-66.0); PLATELET COUNT, AUTOMATED 121 10^3/uL (150-450); RED BLOOD COUNT 4.07 10^6/uL (4.30-6.10); WHITE BLOOD COUNT 8.4 10^3/uL (4.0-10.0)
[2023-06-16 05:40] LABS: BLOOD UREA NITROGEN 13 MG/DL (9-23); CARBON DIOXIDE LEVEL 28 MMOL/L (20-31); CHLORIDE LEVEL 115 MMOL/L (98-107); CREATININE FOR GFR 1.06 MG/DL (0.70-1.30); GLOMERULAR FILTRATION RATE > 60.0 (>42); GLUCOSE, FASTING 96 MG/DL (74-106); POTASSIUM SERUM 3.9 MMOL/L (3.5-5.1); SODIUM LEVEL 148 MMOL/L (136-145)
[2023-06-16] MEDS: BISACODYL 10MG SUPP PR SCH (09:00)
[2023-06-16] MEDS: LACTULOSE 20GM/30ML SYRUP UDC PO SCH ×2 (09:35→20:46)
[2023-06-16] MEDS: allopurinoL 100 MG TAB PO SCH (09:35)
[2023-06-16] MEDS: PANTOPRAZOLE 40MG VIAL IV SCH ×2 (09:35→20:47)
[2023-06-16] MEDS: ENOXAPARIN 40MG/0.4ML SYRINGE (J1650 PER 10MG) SC SCH (09:35)
[2023-06-16] MEDS: TAMSULOSIN 0.4 MG CAP PO SCH (09:35)
[2023-06-16] MEDS: levETIRAcetam 250MG TABLET (KEPPRA) PO SCH ×2 (09:35→20:46)
[2023-06-16] MEDS: QUEtiapine FUMARATE 25 MG TAB PO SCH ×2 (15:26→20:47)
[2023-06-16] MEDS ORDERED: amLODIPine 5 MG TAB PO ONE (20:35)
[2023-06-16] MEDS: cefTRIAXone SOD 2 GM in D5W MINI-BAG PLUS 50 ML IV SCH (20:46)
[2023-06-17] VITALS (11 sets, daily range): BP systolic 144–155; BP diastolic 72–90; TEMP 98.9–99.8; O2SAT 88–96
[2023-06-17 06:06] LABS: BASO % 0.4 % (0.0-1.0); EOS # 0.4 10^3/uL (0.0-0.5); HEMATOCRIT 38.3 % (42.0-52.0); HEMOGLOBIN 12.6 g/dl (13.5-17.5); LYMPH # 1.6 10^3/uL (1.5-5.0); LYMPH % 19.9 % (24.0-44.0); MEAN CORPUSCULAR HEMOGLOBIN 31.7 pg (27.0-33.0); MEAN CORPUSCULAR HGB CONC 32.9 g/dl (32.0-36.5); MEAN CORPUSCULAR VOLUME 96.5 fl (80.0-96.0); MONO # 0.9 10^3/uL (0.0-0.8); MONO % 10.9 % (2.0-8.0); NEUTROPHILS # 4.9 10^3/uL (1.5-8.5); NEUTROPHILS % 63.4 % (36.0-66.0); PLATELET COUNT, AUTOMATED 129 10^3/uL (150-450); RED BLOOD COUNT 3.97 10^6/uL (4.30-6.10); WHITE BLOOD COUNT 7.8 10^3/uL (4.0-10.0)
[2023-06-17 06:35] LABS: BLOOD UREA NITROGEN 13 MG/DL (9-23); CALCIUM LEVEL 8.1 MG/DL (8.3-10.6); CARBON DIOXIDE LEVEL 26 MMOL/L (20-31); CHLORIDE LEVEL 112 MMOL/L (98-107); CREATININE FOR GFR 1.12 MG/DL (0.70-1.30); GLOMERULAR FILTRATION RATE > 60.0 (>42); GLUCOSE, FASTING 91 MG/DL (74-106); MAGNESIUM LEVEL 1.6 MG/DL (1.8-2.4); POTASSIUM SERUM 3.7 MMOL/L (3.5-5.1); SODIUM LEVEL 145 MMOL/L (136-145)
[2023-06-17] MEDS ORDERED: FUROSEMIDE 40MG/4ML VIAL IV ONE (10:00)
[2023-06-17] MEDS ORDERED: ALBUTEROL 90 MCG/ACT 8GM HFA INHALER INH ONE (10:00)
[2023-06-17] MEDS: ENOXAPARIN 40MG/0.4ML SYRINGE (J1650 PER 10MG) SC SCH (11:36)
[2023-06-17] MEDS: MAG SULF 1GM/100ML (MAG RUN) 1 GM in IV 1 EA IV SCH ×2 (11:36→11:40)
[2023-06-17] MEDS: TAMSULOSIN 0.4 MG CAP PO SCH (11:38)
[2023-06-17] MEDS: SIMVASTATIN 40 MG TAB PO SCH (11:38)
[2023-06-17] MEDS: LACTULOSE 20GM/30ML SYRUP UDC PO SCH ×2 (11:38→20:43)
[2023-06-17] MEDS: allopurinoL 100 MG TAB PO SCH (11:39)
[2023-06-17] MEDS: PANTOPRAZOLE 40MG TAB (PROTONIX) PO SCH (11:39)
[2023-06-17] MEDS: levETIRAcetam 250MG TABLET (KEPPRA) PO SCH ×2 (11:39→20:43)
[2023-06-17] MEDS: ALBUTEROL 90 MCG/ACT 8GM HFA INHALER INH SCH ×2 (14:06→19:29)
[2023-06-17] MEDS: CEFUROXIME 500 MG TAB PO SCH ×2 (15:11→20:43)
[2023-06-17] MEDS ORDERED: QUEtiapine FUMARATE 25 MG TAB PO SCH (17:00)
[2023-06-18] MEDS: ACETAMINOPHEN TAB 650MG DOSE (2X325MG) PO PRN ×2 (00:14→09:23)
[2023-06-18 03:08] VITALS: O2SAT 79
[2023-06-18 03:09] VITALS: O2SAT 91
[2023-06-18 04:48] VITALS: O2SAT 80
[2023-06-18 04:49] VITALS: O2SAT 92
[2023-06-18 05:45] LABS: BASO % 0.2 % (0.0-1.0); EOS # 0.3 10^3/uL (0.0-0.5); HEMATOCRIT 39.1 % (42.0-52.0); HEMOGLOBIN 12.9 g/dl (13.5-17.5); LYMPH # 1.4 10^3/uL (1.5-5.0); LYMPH % 16.5 % (24.0-44.0); MEAN CORPUSCULAR HEMOGLOBIN 31.5 pg (27.0-33.0); MEAN CORPUSCULAR VOLUME 95.4 fl (80.0-96.0); MONO # 1.2 10^3/uL (0.0-0.8); MONO % 14.2 % (2.0-8.0); NEUTROPHILS # 5.7 10^3/uL (1.5-8.5); NEUTROPHILS % 65.4 % (36.0-66.0); PLATELET COUNT, AUTOMATED 146 10^3/uL (150-450); WHITE BLOOD COUNT 8.7 10^3/uL (4.0-10.0)
[2023-06-18 06:05] VITALS: BP 124/72; TEMP 98.5; O2SAT 93
[2023-06-18 06:08] LABS: CALCIUM LEVEL 8.6 MG/DL (8.3-10.6); CREATININE FOR GFR 1.36 MG/DL (0.70-1.30); GLOMERULAR FILTRATION RATE 54.1 (>42); POTASSIUM SERUM 3.9 MMOL/L (3.5-5.1)
[2023-06-18] MEDS: ALBUTEROL 90 MCG/ACT 8GM HFA INHALER INH SCH (07:21)
[2023-06-18] MEDS: PANTOPRAZOLE 40MG TAB (PROTONIX) PO SCH (09:03)
[2023-06-18] MEDS: SIMVASTATIN 40 MG TAB PO SCH (09:03)
[2023-06-18] MEDS: CEFUROXIME 500 MG TAB PO SCH (09:03)
[2023-06-18] MEDS: TAMSULOSIN 0.4 MG CAP PO SCH (09:03)
[2023-06-18] MEDS: LACTULOSE 20GM/30ML SYRUP UDC PO SCH (09:03)
[2023-06-18] MEDS: allopurinoL 100 MG TAB PO SCH (09:03)
[2023-06-18] MEDS: levETIRAcetam 250MG TABLET (KEPPRA) PO SCH (09:03)
[2023-06-18] MEDS: ENOXAPARIN 40MG/0.4ML SYRINGE (J1650 PER 10MG) SC SCH (09:04)
[2023-06-18] MEDS ORDERED: CEFU50TA PO ×2 (11:39→14:20)
[2023-06-18] MEDS ORDERED: KEPP1TAB PO ×2 (11:39→14:20)
== END 2023-06-18 14:04 | disposition home or self-care (01) | DRG 100 ==
LOC: M ED 17:52 → M ED INP 19:42 → M ICU 22:08 → M MSPAV 06-16 15:34
PROVIDERS: ADMIT Internal Medicine Pulmonary Disease; ATTEND Internal Medicine Nephrology
PROC: 5A1935Z Respiratory Ventilation, Less than 24 Consecutive Hours (ICD-10-PCS; principal; 2023-06-13)
DX: G40.901 Epilepsy, unspecified, not intractable, with status epilepticus (principal); J96.01 Acute respiratory failure with hypoxia; J69.0 Pneumonitis due to inhalation of food and vomit; I50.32 Chronic diastolic (congestive) heart failure; E72.20 Disorder of urea cycle metabolism, unspecified; I13.0 Hypertensive heart and chronic kidney disease with heart failure and stage 1 through stage 4 chronic kidney disease, or unspecified chronic kidney disease; F03.911 Unspecified dementia, unspecified severity, with agitation; Z66 Do not resuscitate; E66.01 Morbid (severe) obesity due to excess calories; E78.1 Pure hyperglyceridemia; D50.9 Iron deficiency anemia, unspecified; N18.30 Chronic kidney disease, stage 3 unspecified; N40.0 Benign prostatic hyperplasia without lower urinary tract symptoms; M17.11 Unilateral primary osteoarthritis, right knee; N52.9 Male erectile dysfunction, unspecified; Z79.899 Other long term (current) drug therapy; Z20.822 Contact with and (suspected) exposure to COVID-19; Z68.37 Body mass index [BMI] 37.0-37.9, adult

== ENCOUNTER 2023-07-01 09:56 | Emergency (ER) | payer MEDICARE ==
[~2023-07-01] VITALS: Ht 167.6 cm; Wt 109.6 kg
[~2023-07-01 09:56] MED LIST changes: +CEFU50TA PO; +GO LO PO; +KEPP1TAB PO; +SIMV40TA20 PO; +VITA180C2 PO; +[UNRECOGNIZED DRUG - OTHER] PO
[2023-07-01 11:31] LABS: BASO % 0.2 % (0.0-1.0); EOS # 0.1 10^3/uL (0.0-0.5); EOS % 0.6 % (0.0-3.0); HEMATOCRIT 40.5 % (42.0-52.0); HEMOGLOBIN 13.5 g/dl (13.5-17.5); LYMPH # 1.4 10^3/uL (1.5-5.0); LYMPH % 8.3 % (24.0-44.0); MEAN CORPUSCULAR HEMOGLOBIN 31.4 pg (27.0-33.0); MEAN CORPUSCULAR HGB CONC 33.3 g/dl (32.0-36.5); MEAN CORPUSCULAR VOLUME 94.2 fl (80.0-96.0); MONO # 1.6 10^3/uL (0.0-0.8); MONO % 9.6 % (2.0-8.0); NEUTROPHILS # 13.2 10^3/uL (1.5-8.5); NEUTROPHILS % 80.6 % (36.0-66.0); PLATELET COUNT, AUTOMATED 261 10^3/uL (150-450); WHITE BLOOD COUNT 16.3 10^3/uL (4.0-10.0)
[2023-07-01 11:37] LABS: CK-MB VALUE MASS < 1.0 NG/ML (<3.6)
[2023-07-01 11:39] LABS: BLOOD UREA NITROGEN 21 MG/DL (9-23); CALCIUM LEVEL 8.6 MG/DL (8.3-10.6); CARBON DIOXIDE LEVEL 30 MMOL/L (20-31); CHLORIDE LEVEL 103 MMOL/L (98-107); CREATININE FOR GFR 1.18 MG/DL (0.70-1.30); GLOMERULAR FILTRATION RATE > 60.0 (>42); GLUCOSE, FASTING 126 MG/DL (74-106); POTASSIUM SERUM 4.1 MMOL/L (3.5-5.1); SODIUM LEVEL 138 MMOL/L (136-145)
[2023-07-01 11:40] LABS: RSV AMPLIFICATION NEGATIVE (NEGATIVE)
[2023-07-01 11:43] LABS: CPK CREATINE PHOSPHOKINASE 33 U/L (46-171); MB/CK RELATIVE INDEX 3.03 (< OR =4)
[2023-07-01 12:42] LABS: CK-MB VALUE MASS < 1.0 NG/ML (<3.6)
[2023-07-01 12:45] LABS: CPK CREATINE PHOSPHOKINASE 33 U/L (46-171); MB/CK RELATIVE INDEX 3.03 (< OR =4)
[2023-07-01] MEDS ORDERED: OXYGEN CONCENTRATOR XX (17:07)
[2023-07-01] MEDS ORDERED: [UNRECOGNIZED DRUG - SUPPLY] EXT (17:12)
[2023-07-01 17:18] LABS: ABG BASE EXCESS 4.1 (-2.0-2.0); ABG HCO3 27.5 MMOL/L (22.0-26.0); ABG O2 SATURATION 87.7 % (95.0-99.0); ABG PARTIAL PRESSURE CO2 37.3 mmHg (35.0-45.0); ABG STANDARD HCO3 27.9 MMOL/L. (22.0-26.0); ABG TOTAL CO2 28.7 MMOL/L (23.0-31.0); ABG pH (ARTERIAL) 7.486 UNITS (7.350-7.450)
[2023-07-01 17:20] LABS: ABG PARTIAL PRESSURE O2 49.8 mmHg (75.0-100.0)
[2023-07-01] MEDS: FUROSEMIDE 40MG/4ML VIAL IV ONE (18:04)
[2023-07-01] MEDS ORDERED: LASI20TA3 PO (18:58)
[2023-07-01 20:01] VITALS: TEMP 98.9
[2023-07-01 20:31] VITALS: BP 142/69; O2SAT 94
== END 2023-07-01 21:18 | disposition home or self-care (01) ==
LOC: M ED 09:56 → EDBD 09:56 → M ED 21:18
DX: I11.9 Hypertensive heart disease without heart failure (principal); R09.02 Hypoxemia; M10.9 Gout, unspecified; E66.01 Morbid (severe) obesity due to excess calories; G47.33 Obstructive sleep apnea (adult) (pediatric); N40.0 Benign prostatic hyperplasia without lower urinary tract symptoms; K76.0 Fatty (change of) liver, not elsewhere classified; Z79.899 Other long term (current) drug therapy
CPT/HCPCS: 36600; 51701; 71045; 71250; 80048; 81001; 82550; 82553; 82803; 84484; 85025; 87040; 87486; 87581; 87631; 87633; 87798; 93005; 93041; 94760; 96374; 99285; J1940

== ENCOUNTER 2023-07-03 17:03 | Emergency (ER) | payer MEDICARE ==
[~2023-07-03 17:03] MED LIST changes: +LASI20TA3 PO; +OXYGEN CONCENTRATOR XX; +[UNRECOGNIZED DRUG - SUPPLY] EXT
[2023-07-03] MEDS ORDERED: EPINEPHrine 1MG/10ML SYRINGE 1.5IN ONE (17:04)
[2023-07-03] MEDS ORDERED: SODIUM BICARBONATE 8.4% INJ 50ML SYRINGE ONE (17:04)
== END 2023-07-03 19:22 | disposition expired ==
LOC: M ED 17:03
DX: I46.9 Cardiac arrest, cause unspecified (principal); I25.42 Coronary artery dissection; I50.22 Chronic systolic (congestive) heart failure; I11.0 Hypertensive heart disease with heart failure; E78.5 Hyperlipidemia, unspecified
CPT/HCPCS: 87635; 99284; J0171